=== PATIENT | female | born 1935 | race Caucasian/White ===

== ENCOUNTER 2018-02-12 13:32 | Emergency (ER) | payer MEDICARE, BC ==
[2018-02-12 13:41] VITALS: RESP 18; TEMP 98
[2018-02-12] MEDS ORDERED: ENALAPRILAT 1.25 MG/ML 1 ML VIAL IVP STA ×2 (14:29→15:45)
--- NOTE | 2018-02-12 14:33 | ED ---
General Adult HPI - General Chief complaint: Recheck/Abnormal Lab/Rx Stated complaint: High BP Time Seen by Provider: 02/12/18 14:18 Source: patient, family, RN notes reviewed Mode of arrival: ambulatory Limitations: no limitations - History of Present Illness Initial comments: Patient is a pleasant 82-year-old female presenting to the emergency department with concerns regarding hypertension. Patient did take her blood pressure medicine this morning. Patient does have some increased stress recently related to her 's illness. Patient went to urgent care secondary to lesion on the right arm. Patient was noticed to have high blood pressure of approximately 212 systolic. Patient was advised to come to the emergency department. Patient does admit to feeling slightly lightheaded otherwise has no complaints. No chest pain. No dyspnea. No confusion. No weakness. No headaches. - Related Data Home Medications Medication Instructions Recorded Confirmed Meloxicam [Mobic] 7.5 mg PO DAILY PRN 12/28/13 02/12/18 Omeprazole [PriLOSEC] 20 mg PO BID 12/28/13 02/12/18 Calcium Carbonate/Vitamin D3 1 tab PO DAILY 10/04/14 02/12/18 [Calcium 600 + Vit D Tablet] Multivitamins, Thera [Theragran] 1 tab PO DAILY 04/12/15 02/12/18 Atorvastatin [Lipitor] 20 mg PO HS 02/12/18 02/12/18 Lisinopril [Zestril] 20 mg PO DAILY 02/12/18 02/12/18 Metoprolol Tartrate [Lopressor] 50 mg PO BID 02/12/18 02/12/18 Previous Rx's Medication Instructions Recorded Cephalexin [Keflex] 500 mg PO TID #21 cap 02/12/18 Allergies Allergy/AdvReac Type Severity Reaction Status Date / Time No Known Allergies Allergy Verified 02/12/18 14:39 Review of Systems ROS Statement: Those systems with pertinent positive or pertinent negative responses have been documented in the HPI. ROS Other: All systems not noted in ROS Statement are negative. Constitutional: Denies: fever Eyes: Denies: eye pain ENT: Denies: ear pain Respiratory: Denies: cough Cardiovascular: Denies: chest pain Endocrine: Denies: fatigue Gastrointestinal: Denies: abdominal pain Genitourinary: Denies: dysuria Musculoskeletal: Denies: back pain Skin: Reports: lesions Neurological: Denies: weakness Past Medical History Past Medical History: Cancer, Hearing Disorder / Deafness, Hyperlipidemia, Hypertension Additional Past Medical History / Comment(s): HEART MURMUR,LOWER BACK PAIN HX BREAST CA. History of Any Multi-Drug Resistant Organisms: None Reported Past Surgical History: Back Surgery, Hysterectomy, Tubal Ligation Additional Past Surgical History / Comment(s): LT LUMPECTOMY. PAIN PROC. EXC EBONY CATARACTS. Past Anesthesia/Blood Transfusion Reactions: No Reported Reaction Past Psychological History: No Psychological Hx Reported Smoking Status: Never smoker Past Alcohol Use History: None Reported Past Drug Use History: None Reported - Past Family History Mother Family Medical History: No Reported History General Exam Limitations: no limitations General appearance: alert, in no apparent distress Head exam: Present: atraumatic Eye exam: Present: normal appearance Neck exam: Present: normal inspection Respiratory exam: Present: normal lung sounds bilaterally Cardiovascular Exam: Present: regular rate, normal rhythm GI/Abdominal exam: Present: soft. Absent: tenderness Extremities exam: Present: normal inspection Neurological exam: Present: alert, oriented X3, CN II-XII intact. Absent: motor sensory deficit Psychiatric exam: Present: normal affect, normal mood Skin exam: Present: other (Right mid upper arm laterally with vesicle, less than 1 cm.) Course Vital Signs 02/12/18 02/12/18 02/12/18 13:37 15:51 16:26 Temperature 98.0 F Pulse Rate 63 Respiratory 18 Rate Blood Pressure 203/76 226/87 173/76 O2 Sat by Pulse 98 Oximetry EKG Findings - EKG Comments: EKG Findings:: Sinus bradycardia 57. IA 164. QRS 84. QT 438. QTC 426. Normal axis. Normal QRS. No acute ST change. Medical Decision Making - Medical Decision Making Patient reevaluated and resting comfortably in bed. Patient updated on results and need for follow-up. Blood pressure 165/62. - Lab Data Result diagrams: 02/12/18 14:50 02/12/18 14:50 Lab Results 02/12/18 02/12/18 02/12/18 Range/Units 14:50 14:50 15:40 WBC 6.7 (3.8-10.6) k/uL RBC 4.21 (3.80-5.40) m/uL Hgb 14.2 (11.4-16.0) gm/dL Hct 42.2 (34.0-46.0) % MCV 100.2 H (80.0-100.0) fL MCH 33.6 (25.0-35.0) pg MCHC 33.6 (31.0-37.0) g/dL RDW 12.3 (11.5-15.5) % Plt Count 134 L (150-450) k/uL Neutrophils % 50 % Lymphocytes % 37 % Monocytes % 6 % Eosinophils % 4 % Basophils % 1 % Neutrophils # 3.3 (1.3-7.7) k/uL Lymphocytes # 2.5 (1.0-4.8) k/uL Monocytes # 0.4 (0-1.0) k/uL Eosinophils # 0.3 (0-0.7) k/uL Basophils # 0.1 (0-0.2) k/uL Sodium 140 (137-145) mmol/L Potassium 4.6 (3.5-5.1) mmol/L Chloride 104 (98-107) mmol/L Carbon Dioxide 27 (22-30) mmol/L Anion Gap 9 mmol/L BUN 16 (7-17) mg/dL Creatinine 0.61 (0.52-1.04) mg/dL Est GFR (CKD-EPI)AfAm >90 (>60 ml/min/1.73 sqM) Est GFR (CKD-EPI)NonAf 84 (>60 ml/min/1.73 sqM) Glucose 92 (74-99) mg/dL Calcium 9.9 (8.4-10.2) mg/dL Total Bilirubin 0.6 (0.2-1.3) mg/dL AST 34 (14-36) U/L ALT 36 (9-52) U/L Alkaline Phosphatase 82 (38-126) U/L Total Protein 6.4 (6.3-8.2) g/dL Albumin 4.1 (3.5-5.0) g/dL Urine Color Light Yellow Urine Appearance Clear (Clear) Urine pH 6.0 (5.0-8.0) Ur Specific [place] 1.005 (1.001-1.035) Urine Protein Negative (Negative) Urine Glucose (UA) Negative (Negative) Urine Ketones Negative (Negative) Urine Blood Negative (Negative) Urine Nitrite Negative (Negative) Urine Bilirubin Negative (Negative) Urine Urobilinogen <2.0 (<2.0) mg/dL Ur Leukocyte Esterase Moderate H (Negative) Urine RBC <1 (0-5) /hpf Urine WBC 5 (0-5) /hpf Ur Squamous Epith Cells <1 (0-4) /hpf Urine Bacteria Rare H (None) /hpf - Radiology Data Radiology results: image reviewed (Chest x-ray does show some chronic changes without acute process.) Disposition Clinical Impression: Hypertension Disposition: HOME SELF-CARE Condition: Stable Instructions: Hypertension (ED) Additional Instructions: Please follow-up with primary care physician in the next couple days for recheck. Keep a diary of your blood pressures to provide for primary care physician. You may take 1 additional lisinopril daily if blood pressure greater than 185 systolic or 90 diastolic. Return for increase arm sore size, redness, pain, fevers, uncontrolled blood pressure, worsening symptoms or other concerns. Prescriptions: Cephalexin [Keflex] 500 mg PO TID #21 cap Is patient prescribed a controlled substance at d/c from ED?: No Referrals: Nuno Maynard MD [Primary Care Provider] - 1-2 days Time of Disposition: 16:47
[2018-02-12 14:57] LABS: Basophils # (A) 0.1 k/uL (0-0.2); Basophils % (A) 1 %; Eosinophils # (A) 0.3 k/uL (0-0.7); Eosinophils % (A) 4 %; HCT 42.2 % (34.0-46.0); HGB 14.2 gm/dL (11.4-16.0); Lymphocytes # (A) 2.5 k/uL (1.0-4.8); Lymphocytes % (A) 37 %; MCH 33.6 pg (25.0-35.0); MCHC 33.6 g/dL (31.0-37.0); MCV 100.2 fL (80.0-100.0); Mean Platelet Volume 7.5; Monocytes # (A) 0.4 k/uL (0-1.0); Monocytes % (A) 6 %; Neutrophils # (A) 3.3 k/uL (1.3-7.7); Neutrophils % (A) 50 %; Platelet Count 134 k/uL (150-450); RBC 4.21 m/uL (3.80-5.40); RDW 12.3 % (11.5-15.5); WBC 6.7 k/uL (3.8-10.6)
[2018-02-12 15:08] LABS: ALT 36 U/L (9-52); AST 34 U/L (14-36); Albumin 4.1 g/dL (3.5-5.0); Alkaline Phosphatase 82 U/L (38-126); Anion Gap 9 mmol/L; Blood Urea Nitrogen 16 mg/dL (7-17); Calcium 9.9 mg/dL (8.4-10.2); Carbon Dioxide 27 mmol/L (22-30); Chloride 104 mmol/L (98-107); Glucose 92 mg/dL (74-99); Potassium 4.6 mmol/L (3.5-5.1); Sodium 140 mmol/L (137-145); Total Bilirubin 0.6 mg/dL (0.2-1.3); Total Protein 6.4 g/dL (6.3-8.2)
--- NOTE | 2018-02-12 15:42 | XR ---
EXAMINATION TYPE: XR chest 2V DATE OF EXAM: 02/12/2018 COMPARISON: Chest x-ray November 29, 2009 HISTORY: History of breast cancer TECHNIQUE: Frontal and lateral views of the chest are obtained. FINDINGS: There is chronic parenchymal change without suspicious focal air space opacity, pleural ef fusion, or pneumothorax seen. The cardiac silhouette size is within normal limits. The osseous str uctures are demineralized. Metallic anchor right humeral head level is redemonstrated. Cholecystectom y clips are noted. Absent left breast shadow is redemonstrated. IMPRESSION: Chronic changes without acute pulmonary process.
[2018-02-12 16:03] LABS: Appearance,Urine Clear (Clear); Bacteria,Urine Rare /hpf; Bilirubin,Urine Negative (Negative); Blood,Urine Negative (Negative); Color,Urine Light Yellow; Glucose,Urine (UA) Negative (Negative); Ketones,Urine Negative (Negative); Leukocyte Esterase,Urine Moderate (Negative); Nitrite,Urine Negative (Negative); Protein,Urine Negative (Negative); RBC,Urine <1 /hpf (0-5); Specific Gravity,Urine 1.005 (1.001-1.035); Squamous Epithelial Cell,Urine <1 /hpf (0-4); Urobilinogen,Urine <2.0 mg/dL (<2.0); WBC,Urine 5 /hpf (0-5)
[2018-02-12 17:19] VITALS: BP 183/75; PULSE 60
== END 2018-02-12 17:41 | disposition home or self-care (01) ==
LOC: EC 13:32
DX: I10 Essential (primary) hypertension (principal); R23.8 Other skin changes; R42 Dizziness and giddiness; Z63.8 Other specified problems related to primary support group; E78.5 Hyperlipidemia, unspecified; H91.90 Unspecified hearing loss, unspecified ear; Z79.899 Other long term (current) drug therapy; Z85.3 Personal history of malignant neoplasm of breast; Z98.890 Other specified postprocedural states
CPT/HCPCS: 36415; 71046; 80053; 81001; 85025; 93005; 96374; 96376; 99283

== ENCOUNTER 2019-03-14 16:16 | Emergency (ER) | payer MEDICARE, BC ==
[2019-03-14 16:28] VITALS: TEMP 98.2
[2019-03-14] MEDS ORDERED: LIDOCAINE 5% PATCH TOPICAL STA (16:52)
--- NOTE | 2019-03-14 16:58 | ED ---
Back Pain [facility] - General Chief Complaint: Back Pain/Injury Stated Complaint: Back pain Time Seen by Provider: 03/14/19 16:35 Source: patient Limitations: no limitations - History of Present Illness Initial Comments: 83-year-old female presenting with left-sided paraspinal thoracic back pain that began while doing laundry. He denies a specific inciting event, but states that she is being seen in the ER previously for this was given a shot, and had resolution. She denies any direct injury to the back, history of injections, radicular symptoms, saddle anesthesia, bowel or bladder dysfunction, urinary frequency or dysuria, chest pain shortness of breath, abdominal pain, nause a/vomiting/diarrhea. She took half of a 60 mg Tramadol without relief. Patient was hypertensive on arrival, which her and her state is common when she is seen in a hospital or doctor's office. - Related Data Home Medications Medication Instructions Recorded Confirmed Meloxicam [Mobic] 7.5 mg PO DAILY 12/28/13 03/14/19 Omeprazole [PriLOSEC] 20 mg PO DAILY 12/28/13 03/14/19 Calcium Carbonate/Vitamin D3 1 tab PO DAILY 10/04/14 03/14/19 [Calcium 600 + Vit D Tablet] Atorvastatin [Lipitor] 40 mg PO HS 03/14/19 03/14/19 Cholecalciferol (Vitamin D3) 2,000 unit PO DAILY 03/14/19 03/14/19 [Vitamin D3] Cyclobenzaprine [Flexeril] 10 mg PO DAILY PRN 03/14/19 03/14/19 Letrozole 2.5 mg PO DAILY 03/14/19 03/14/19 Losartan/Hydrochlorothiazide 1 tab PO DAILY 03/14/19 03/14/19 [Losartan-Hctz 50-12.5 mg Tab] Metoprolol Tartrate [Lopressor] 25 mg PO BID 03/14/19 03/14/19 Multivit-Min/FA/Lycopen/Lutein 1 tab PO DAILY 03/14/19 03/14/19 [Centrum Silver Tablet] traZODone HCL 50 mg PO HS 03/14/19 03/14/19 Previous Rx's Medication Instructions Recorded Lidocaine [Lidoderm 5% Patch] 1 patch TRANSDERM DAILY PRN #30 03/14/19 patch Allergies Allergy/AdvReac Type Severity Reaction Status Date / Time No Known Allergies Allergy Verified 03/14/19 17:04 Review of Systems ROS Statement: Those systems with pertinent positive or pertinent negative responses have been documented in the HPI. Review of Systems Constitutional: Denies fever, chills Eyes: Denies change in vision, Denies pain Ears, nose, mouth, throat: Denies headaches, Denies sore throat Cardiovascular: Denies chest pain. Denies palpitations Respiratory: Denies shortness of breath, Denies cough Gastrointestinal: Denies abdominal pain. Denies nausea, vomiting, diarrhea. Genitourinary: Denies hematuria, Denies infections Musculoskeletal: Positive back pain, Denies swelling Integumentary: Denies rash Neurological: Denies headache, focal weakness, focal numbness Psychiatric: Denies anxiety, Denies depression Hematologic/Lymphatic: Denies easy bleeding or bruising ROS Other: All systems not noted in ROS Statement are negative. Past Medical History Past Medical History: Cancer, Hearing Disorder / Deafness, Hyperlipidemia, Hypertension Additional Past Medical History / Comment(s): HEART MURMUR,LOWER BACK PAIN HX BREAST CA. History of Any Multi-Drug Resistant Organisms: None Reported Past Surgical History: Back Surgery, Hysterectomy, Tubal Ligation Additional Past Surgical History / Comment(s): LT LUMPECTOMY. PAIN PROC. EXC EBONY CATARACTS. Past Anesthesia/Blood Transfusion Reactions: No Reported Reaction Past Psychological History: No Psychological Hx Reported Smoking Status: Never smoker Past Alcohol Use History: None Reported Past Drug Use History: None Reported - Past Family History Mother Family Medical History: No Reported History General Exam - General Exam Comments Initial Comments: General: Awake, alert, No acute Distress HENT: Normocephalic. Atraumatic Eyes: PERRL. EOMI. No scleral icterus. No injected conjunctiva Neck: Full ROM Chest/Lungs: Clear to auscultation bilaterally. No wheezing, rhonchi, or rales Cardiac: Regular rate, rhythm. Systolic murmur. 2+ radial pulses. No abdominal bruit. 2+ DP pulses. Abdomen/GI: Soft, nontender, nondistended. No rebound, guarding, or rigidity. Musculoskeletal: Full ROM. Left sided hypertonicity and tenderness to palpation at the thoracolumbar junction. No midline cervical, thoracic, lumbar tenderness. Skin: Warm, dry, intact Neurologic: A/Ox3, no weakness, no sensory deficit, no abnormal gait, no coordination deficit. 2+ patellar reflexes. L4 through S1 sensation intact bilaterally. Limitations: no limitations Course Vital Signs 03/14/19 03/14/19 03/14/19 16:25 17:50 18:16 Temperature 98.2 F Pulse Rate 66 65 67 Respiratory 18 13 13 Rate Blood Pressure 203/84 171/80 171/80 O2 Sat by Pulse 97 98 98 Oximetry Medical Decision Making - Medical Decision Making 83-year-old female presenting with her spell back pain. Initial exam the patient is awake, alert, no acute distress. VSS. Patient has no cauda equina signs on exam. A cardiac workup was done secondary to her hypertension. Her laboratory workup is negative for acute process, and in her pain improved on the department. A repeat blood pressure was 170/80. Symptoms are unlikely secondary to an aortic dissection as she has equal pulses, no neuro deficit, improvement of her blood pressure, and no anginal equivalents, no abdominal pain, and her back pain has improved. No further emergent workup indicated. The patient was given return to ED instructions. They were instructed to follow up with their primary care provider. Stable for discharge at this time. - Lab Data Result diagrams: 03/14/19 17:04 03/14/19 17:04 Lab Results 03/14/19 03/14/19 03/14/19 Range/Units 17:04 17:04 17:04 WBC 9.2 (3.8-10.6) k/uL RBC 4.02 (3.80-5.40) m/uL Hgb 13.7 (11.4-16.0) gm/dL Hct 40.2 (34.0-46.0) % MCV 100.0 (80.0-100.0) fL MCH 34.2 (25.0-35.0) pg MCHC 34.2 (31.0-37.0) g/dL RDW 12.7 (11.5-15.5) % Plt Count 165 (150-450) k/uL Neutrophils % 66 % Lymphocytes % 21 % Monocytes % 8 % Eosinophils % 3 % Basophils % 0 % Neutrophils # 6.0 (1.3-7.7) k/uL Lymphocytes # 1.9 (1.0-4.8) k/uL Monocytes # 0.7 (0-1.0) k/uL Eosinophils # 0.3 (0-0.7) k/uL Basophils # 0.0 (0-0.2) k/uL Sodium 138 (137-145) mmol/L Potassium 4.0 (3.5-5.1) mmol/L Chloride 102 (98-107) mmol/L Carbon Dioxide 25 (22-30) mmol/L Anion Gap 11 mmol/L BUN 19 H (7-17) mg/dL Creatinine 0.66 (0.52-1.04) mg/dL Est GFR (CKD-EPI)AfAm >90 (>60 ml/min/1.73 sqM) Est GFR (CKD-EPI)NonAf 81 (>60 ml/min/1.73 sqM) Glucose 136 H (74-99) mg/dL Calcium 9.4 (8.4-10.2) mg/dL Troponin I <0.012 (0.000-0.034) ng/mL Urine Color Urine Appearance (Clear) Urine pH (5.0-8.0) Ur Specific [place] (1.001-1.035) Urine Protein (Negative) Urine Glucose (UA) (Negative) Urine Ketones (Negative) Urine Blood (Negative) Urine Nitrite (Negative) Urine Bilirubin (Negative) Urine Urobilinogen (<2.0) mg/dL Ur Leukocyte Esterase (Negative) Urine RBC (0-5) /hpf Urine WBC (0-5) /hpf Ur Squamous Epith Cells (0-4) /hpf Urine Mucus (None) /hpf 03/14/19 Range/Units 17:04 WBC (3.8-10.6) k/uL RBC (3.80-5.40) m/uL Hgb (11.4-16.0) gm/dL Hct (34.0-46.0) % MCV (80.0-100.0) fL MCH (25.0-35.0) pg MCHC (31.0-37.0) g/dL RDW (11.5-15.5) % Plt Count (150-450) k/uL Neutrophils % % Lymphocytes % % Monocytes % % Eosinophils % % Basophils % % Neutrophils # (1.3-7.7) k/uL Lymphocytes # (1.0-4.8) k/uL Monocytes # (0-1.0) k/uL Eosinophils # (0-0.7) k/uL Basophils # (0-0.2) k/uL Sodium (137-145) mmol/L Potassium (3.5-5.1) mmol/L Chloride (98-107) mmol/L Carbon Dioxide (22-30) mmol/L Anion Gap mmol/L BUN (7-17) mg/dL Creatinine (0.52-1.04) mg/dL Est GFR (CKD-EPI)AfAm (>60 ml/min/1.73 sqM) Est GFR (CKD-EPI)NonAf (>60 ml/min/1.73 sqM) Glucose (74-99) mg/dL Calcium (8.4-10.2) mg/dL Troponin I (0.000-0.034) ng/mL Urine Color Yellow Urine Appearance Clear (Clear) Urine pH 5.0 (5.0-8.0) Ur Specific [place] 1.016 (1.001-1.035) Urine Protein Negative (Negative) Urine Glucose (UA) Negative (Negative) Urine Ketones Negative (Negative) Urine Blood Negative (Negative) Urine Nitrite Negative (Negative) Urine Bilirubin Negative (Negative) Urine Urobilinogen <2.0 (<2.0) mg/dL Ur Leukocyte Esterase Moderate H (Negative) Urine RBC 1 (0-5) /hpf Urine WBC 3 (0-5) /hpf Ur Squamous Epith Cells 1 (0-4) /hpf Urine Mucus Rare H (None) /hpf - EKG Data EKG Comments: EKG shows normal sinus rhythm at a rate of 63 bpm. AK interval 160 ms, QRS duration 84 ms, QT/QTc 438/[address] segment elevation, depression. No prolonged QT/QTc or AK interval. No dysrythmia noted. Disposition Clinical Impression: Mechanical back pain, Hypertension Disposition: HOME SELF-CARE Condition: Good Instructions (If sedation given, give patient instructions): Acute Low Back Pain (ED) Prescriptions: Lidocaine [Lidoderm 5% Patch] 1 patch TRANSDERM DAILY PRN #30 patch PRN Reason: Pain Is patient prescribed a controlled substance at d/c from ED?: No Referrals: Nuno Maynard MD [Primary Care Provider] - 1-2 days
[2019-03-14 17:21] LABS: Basophils % (A) 0 %; Eosinophils # (A) 0.3 k/uL (0-0.7); Eosinophils % (A) 3 %; HCT 40.2 % (34.0-46.0); HGB 13.7 gm/dL (11.4-16.0); Lymphocytes # (A) 1.9 k/uL (1.0-4.8); Lymphocytes % (A) 21 %; MCH 34.2 pg (25.0-35.0); MCHC 34.2 g/dL (31.0-37.0); Monocytes # (A) 0.7 k/uL (0-1.0); Monocytes % (A) 8 %; Neutrophils % (A) 66 %; Platelet Count 165 k/uL (150-450); RBC 4.02 m/uL (3.80-5.40); RDW 12.7 % (11.5-15.5); WBC 9.2 k/uL (3.8-10.6)
[2019-03-14 17:24] LABS: Appearance,Urine Clear (Clear); Bilirubin,Urine Negative (Negative); Blood,Urine Negative (Negative); Color,Urine Yellow; Glucose,Urine (UA) Negative (Negative); Ketones,Urine Negative (Negative); Leukocyte Esterase,Urine Moderate (Negative); Mucus,Urine Rare /hpf; Nitrite,Urine Negative (Negative); Protein,Urine Negative (Negative); RBC,Urine 1 /hpf (0-5); Specific Gravity,Urine 1.016 (1.001-1.035); Squamous Epithelial Cell,Urine 1 /hpf (0-4); Urobilinogen,Urine <2.0 mg/dL (<2.0); WBC,Urine 3 /hpf (0-5)
[2019-03-14 17:29] LABS: African American GFR (CKD) >90 (>60 ml/min/1.73 sqM); Anion Gap 11 mmol/L; Blood Urea Nitrogen 19 mg/dL (7-17); Calcium 9.4 mg/dL (8.4-10.2); Carbon Dioxide 25 mmol/L (22-30); Chloride 102 mmol/L (98-107); Glucose 136 mg/dL (74-99); Non-African American GFR(CKD) 81 (>60 ml/min/1.73 sqM); Sodium 138 mmol/L (137-145)
--- NOTE | 2019-03-14 17:36 | XR ---
EXAMINATION TYPE: XR thoraco lumbar junction DATE OF EXAM: 03/14/2019 COMPARISON: NONE HISTORY: Back pain TECHNIQUE: 2 views FINDINGS: Vertebra have fairly normal alignment. There is degenerative disc space narrowing in the up per lumbar spine. There is no compression fracture. Abdominal aorta is atheromatous. IMPRESSION: Spondylotic changes. No definite fracture seen. T10 and T9 vertebra are not well seen.
--- NOTE | 2019-03-14 17:37 | XR ---
EXAMINATION TYPE: XR chest 2V DATE OF EXAM: 03/14/2019 COMPARISON: 02/12/2018 HISTORY: Back pain TECHNIQUE: Frontal and lateral views of the chest are obtained. FINDINGS: Heart and mediastinum are normal. Lungs are clear of infiltrate. There is no pleural effus ion or pneumothorax. Thoracic spine is intact. There is no compression fracture. There is obtained in the right humerus. IMPRESSION: No active cardiopulmonary disease. No change.
[2019-03-14 17:50] VITALS: BP 171/80; RESP 13
[2019-03-14 18:17] VITALS: PULSE 67
== END 2019-03-14 18:10 | disposition home or self-care (01) ==
LOC: EC 16:16
DX: M54.6 Pain in thoracic spine (principal); I10 Essential (primary) hypertension; E78.5 Hyperlipidemia, unspecified; R01.1 Cardiac murmur, unspecified; H91.90 Unspecified hearing loss, unspecified ear; Z79.1 Long term (current) use of non-steroidal anti-inflammatories (NSAID); Z79.899 Other long term (current) drug therapy; Z85.3 Personal history of malignant neoplasm of breast
CPT/HCPCS: 36415; 71046; 72080; 80048; 81001; 84484; 85025; 93005; 99284

== ENCOUNTER → 2020-08-08 | Outpatient (CLI) | payer MEDICARE, BC ==
--- NOTE | 2020-08-08 10:57 | XR ---
EXAMINATION TYPE: XR shoulder complete LT DATE OF EXAM: 08/08/2020 COMPARISON: NONE HISTORY: Pain TECHNIQUE: Shoulder examined in 3 FINDINGS: The humeral head articulates with the glenoid. There is loss of the glenohumeral Junction joint space with some humeral head spurring compatible with moderate to advanced osteoarthritic degenerative lolis nge. The acromio-clavicular junction is normal. No acute fractures or dislocations are evident. A follow up study can be performed 7-10 days from acute trauma for continued pain. IMPRESSION: 1. 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
== END | disposition home or self-care (01) ==
LOC: RADXRMAIN 10:27
PROVIDERS: ATTEND Internal Medicine Hematology & Oncology
DX: M19.012 Primary osteoarthritis, left shoulder (principal); M75.102 Unspecified rotator cuff tear or rupture of left shoulder, not specified as traumatic

== ENCOUNTER → 2020-08-22 | Outpatient (CLI) | payer MEDICARE, BC ==
--- NOTE | 2020-08-22 16:13 | BD ---
EXAMINATION TYPE: Axial Bone Density DATE OF EXAM: 08/22/2020 COMPARISON: 01/18/2008 CLINICAL HISTORY: M [age], postmenopausal female and breast cancer Height: 61.5 IN Weight: 138 LBS RISK FACTORS HISTORY OF: Surgery to Spine: HAD SURGERY AT L5 TO THE NERVES. NO SURGERY TO BONES. When: Active: YES Postmenopausal woman: TOTAL HYST AGE 46 Take estrogen and/or progesterone medications: NOT NOW How long: TOOK FOR 5 YEARS MEDICATIONS: Additional Medications: CALCIUM, VIT D, BLOOD PRESSURE MEDS, CHOLESTEROL MEDS Additional History: BREAST CANCER WITH RADIATION EXAM MEASUREMENTS: Bone mineral densitometry was performed using the [employer]. Bone mineral density as measured about the Lumbar spine is: ----- L1-L4(G/cm2): 1.447 T Score Values are as follows: ----- L2: 1.7 ----- L3: 3.0 ----- L4: 2.4 ----- L1-L4: 2.2 Bone mineral density BASELINE Bone mineral density about the R hip (g/cm2): 0.943 Bone mineral density about the L hip (g/cm2): 0.948 T Score values are as follows: -----R Neck: -0.7 -----L Neck: -0.7 -----R Total: -0.3 -----L Total: -0.4 Bone mineral density has: Decreased -9.6% since study of: 01/18/2008 IMPRESSION: Normal (Values between +1 and -1 indicate normal bone mass). Consider repeating this study in 5 year s or sooner if there is some new clinical indication. NOTE: T-SCORE=SD OF THE YOUNG ADULT MEAN.
--- NOTE | 2020-09-01 14:37 | MM ---
Reason for exam: screening (asymptomatic). Last mammogram was performed 1 year and 5 months ago. History: Patient is postmenopausal, has history of breast cancer at age 61, and previous chest radiation therapy. Family history of breast cancer in 2 paternal aunts. Mastectomy of the left breast, October 2018. Lumpectomy of the left breast, 1996. Radiation therapy. Took estrogen beginning at age 46. Physical Findings: A clinical breast exam by your physician is recommended on an annual basis and results should be correlated with mammographic findings. MG 3D Scr Walter Unilateral W/Cad Bilateral CC and MLO view(s) were taken. XCCL view(s) were taken of the right breast. Prior study comparison: June 09, 2018, mammogram, performed at [place]. December 20, 2016, mammogram, performed at [place]. January 23, 2016, mammogram, performed at [place]. January 20, 2015, mammogram, performed at [place]. January 19, 2014, bilateral MG diagnostic mammo w CAD EBONY. January 14, 2013, CAD bilateral diagnostic mammogram. The breast tissue is heterogeneously dense. This may lower the sensitivity of mammography. Finding: There are typically benign round, linear calcifications in the right breast. Previous mammotome biopsy in the right breast x 2. There is a chronic nodularity in the right breast. There is no discrete abnormality. ASSESSMENT: Benign, BI-RAD 2 RECOMMENDATION: Routine screening mammogram of the right breast in 1 year.
== END | disposition home or self-care (01) ==
LOC: RADMAMWWP 09:28
PROVIDERS: ATTEND Internal Medicine Hematology & Oncology
DX: Z12.31 Encounter for screening mammogram for malignant neoplasm of breast (principal); Z79.890 Hormone replacement therapy
CPT/HCPCS: 77067; 77080

== ENCOUNTER 2021-02-12 07:24 | Emergency (ER) | payer MEDICARE, BC ==
[2021-02-12 07:29] VITALS: TEMP 98
[2021-02-12 08:39] LABS: Basophils % (A) 1 %; Eosinophils # (A) 0.1 k/uL (0-0.7); Eosinophils % (A) 2 %; HCT 35.9 % (34.0-46.0); HGB 12.5 gm/dL (11.4-16.0); Lymphocytes # (A) 1.5 k/uL (1.0-4.8); Lymphocytes % (A) 23 %; MCH 34.1 pg (25.0-35.0); MCHC 34.8 g/dL (31.0-37.0); Mean Platelet Volume 7.2; Monocytes # (A) 0.6 k/uL (0-1.0); Monocytes % (A) 8 %; Neutrophils # (A) 4.2 k/uL (1.3-7.7); Neutrophils % (A) 62 %; Platelet Count 173 k/uL (150-450); RBC 3.66 m/uL (3.80-5.40); RDW 12.7 % (11.5-15.5); WBC 6.7 k/uL (3.8-10.6)
[2021-02-12 08:48] LABS: Albumin 4.1 g/dL (3.5-5.0); Calcium 9.5 mg/dL (8.4-10.2); Potassium 3.8 mmol/L (3.5-5.1); Total Bilirubin 0.8 mg/dL (0.2-1.3); Total Protein 6.7 g/dL (6.3-8.2)
[2021-02-12 08:51] LABS: Prothrombin Time 10.6 sec (9.0-12.0)
[2021-02-12 09:07] LABS: Appearance,Urine Clear (Clear); Bilirubin,Urine Negative (Negative); Blood,Urine Negative (Negative); Color,Urine Light Yellow; Glucose,Urine (UA) Negative (Negative); Ketones,Urine Negative (Negative); Leukocyte Esterase,Urine Trace (Negative); Nitrite,Urine Negative (Negative); Protein,Urine Negative (Negative); RBC,Urine <1 /hpf (0-5); Specific Gravity,Urine 1.006 (1.001-1.035); Squamous Epithelial Cell,Urine 1 /hpf (0-4); Urobilinogen,Urine <2.0 mg/dL (<2.0); WBC,Urine 1 /hpf (0-5)
[2021-02-12] MEDS ORDERED: SODIUM CHLORIDE 0.9% 1,000 ML IV ONE (09:42)
--- NOTE | 2021-02-12 09:54 | CT ---
EXAMINATION TYPE: CT abdomen pelvis w con DATE OF EXAM: 02/12/2021 COMPARISON: 01/07/2012 HISTORY: Lower abdominal pain with constipation. CT DLP: 814.4 mGycm CONTRAST: CT scan of the abdomen and pelvis is performed without Oral Contrast and with IV Contrast, patient in jected with 100 mL of Isovue 300. FINDINGS: LUNG BASES-: No visible nodule. No infiltrate. LIVER/GB: The gallbladder is surgically absent. No space occupying hepatic lesion. Biliary tree is of normal caliber. PANCREAS: No inflammation. No distinct mass. SPLEEN: No splenic enlargement. No lesion seen. ADRENALS: Bilateral adrenal nodularity may reflect underlying adenoma. KIDNEYS/BLADDER: There is mild right-sided hydronephrosis without obstructing calculus. Correlate for recently passed calculus. No nephrolithiasis. No distinct renal mass. Urinary bladder grossly unre markable. BOWEL: Normal appendix. Normal bowel caliber. No inflammation. GENITAL ORGANS: No gross abnormality. LYMPH NODES: No greater than 1cm abdominal or pelvic lymph nodes are appreciated. AORTA: No significant abnormality. OSSEOUS STRUCTURES: No significant abnormality is seen. OTHER: No significant additional abnormality is seen. IMPRESSION: 1. There is mild right-sided hydronephrosis without obstructing calculus. Correlate for recently pass ed calculus.
[2021-02-12 10:37] VITALS: BP 170/70; PULSE 61; RESP 18
--- NOTE | 2021-02-12 10:48 | ED ---
Abdominal Pain HPI - General Chief Complaint: Abdominal Pain Stated Complaint: Abd Pain Source: patient Mode of arrival: ambulatory Limitations: physical limitation - History of Present Illness Initial Comments: 85-year-old female with past medical history of hypertension, hyperlipidemia, breast cancer who presents emergency room with reported lower abdominal pain. Patient reports that her pain started last . She has had bilateral lower quadrant abdominal pain which was associated with distention. She did start taking stool softeners since her primary care doctor on Friday. They did place her on MiraLAX. Patient has had several bowel movements over the weekend. Denies black or bloody stools. She admits that her pain has improved however she continues to have mild discomfort. Denies any back or flank pain. No ripping or tearing station to her back. Denies any urinary changes to include dysuria, hematuria or to the voiding. She continues to pass gas. No history of bowel obstruction. Patient is status post hysterectomy and cholecystectomy. Due to the continued discomfort the patient presented emergency room for further evaluation. Denies any fevers or chills. No other alleviating, precipitating or modifying factors - Related Data Home Medications Medication Instructions Recorded Confirmed Meloxicam [Mobic] 7.5 mg PO DAILY 12/28/13 02/12/21 Omeprazole [PriLOSEC] 20 mg PO DAILY 12/28/13 02/12/21 Calcium Carbonate/Vitamin D3 1 tab PO DAILY 10/04/14 02/12/21 [Calcium 600 + Vit D Tablet] Atorvastatin [Lipitor] 40 mg PO HS 03/14/19 02/12/21 Cyclobenzaprine [Flexeril] 10 mg PO HS PRN 03/14/19 02/12/21 Letrozole 2.5 mg PO DAILY 03/14/19 02/12/21 Losartan/Hydrochlorothiazide 1 tab PO DAILY 03/14/19 02/12/21 [Losartan-Hctz 50-12.5 mg Tab] Multivit-Min/FA/Lycopen/Lutein 1 tab PO DAILY 03/14/19 02/12/21 [Centrum Silver Tablet] traZODone HCL 50 mg PO HS 03/14/19 02/12/21 Metoprolol Tartrate [Lopressor] 50 mg PO BID 02/12/21 02/12/21 Allergies Allergy/AdvReac Type Severity Reaction Status Date / Time No Known Allergies Allergy Verified 07/12/21 07:49 Review of Systems ROS Statement: Those systems with pertinent positive or pertinent negative responses have been documented in the HPI. ROS Other: All systems not noted in ROS Statement are negative. Past Medical History Past Medical History: Cancer, Hearing Disorder / Deafness, Hyperlipidemia, Hypertension Additional Past Medical History / Comment(s): HEART MURMUR,LOWER BACK PAIN HX BREAST CA. History of Any Multi-Drug Resistant Organisms: None Reported Past Surgical History: Back Surgery, Hysterectomy, Tubal Ligation Additional Past Surgical History / Comment(s): LT LUMPECTOMY. PAIN PROC. EXC EBONY CATARACTS. , left breast mastectomy Past Anesthesia/Blood Transfusion Reactions: No Reported Reaction Past Psychological History: No Psychological Hx Reported Smoking Status: Never smoker Past Alcohol Use History: None Reported Past Drug Use History: None Reported - Past Family History Mother Family Medical History: No Reported History General Exam Limitations: physical limitation Course Vital Signs 02/12/21 02/12/21 02/12/21 07:25 08:30 10:35 Temperature 98.0 F Pulse Rate 65 79 61 Respiratory 18 16 18 Rate Blood Pressure 164/72 163/93 170/70 O2 Sat by Pulse 98 99 97 Oximetry Medical Decision Making - Medical Decision Making Upon arrival the patient is placed into room 4. There are history of physical exam was performed. IV is established. Laboratory studies were conducted. Patient was offered something for pain control however she refused. Laboratory studies chemistry the sodium of 128. She is given a liter bolus of normal saline. Remainder of laboratory studies are normal. CT the patient's abdomen and pelvis demonstrates some hydronephrosis to the right kidney however no acute findings. Results are discussed the patient's. I did discuss diagnosis, differential treatment options. Patient will continue with MiraLAX and follow up with her primary care doctor in the next 2-4 days. Return to the emergency room for any new or worsening symptoms. Patient understood this. Given written and verbal discharge instructions and discharged home in stable condition - Lab Data Result diagrams: 02/12/21 08:23 02/12/21 08:23 Lab Results 02/12/21 02/12/21 02/12/21 Range/Units 08:23 08:23 08:23 WBC 6.7 (3.8-10.6) k/uL RBC 3.66 L (3.80-5.40) m/uL Hgb 12.5 (11.4-16.0) gm/dL Hct 35.9 (34.0-46.0) % MCV 98.0 (80.0-100.0) fL MCH 34.1 (25.0-35.0) pg MCHC 34.8 (31.0-37.0) g/dL RDW 12.7 (11.5-15.5) % Plt Count 173 (150-450) k/uL MPV 7.2 Neutrophils % 62 % Lymphocytes % 23 % Monocytes % 8 % Eosinophils % 2 % Basophils % 1 % Neutrophils # 4.2 (1.3-7.7) k/uL Lymphocytes # 1.5 (1.0-4.8) k/uL Monocytes # 0.6 (0-1.0) k/uL Eosinophils # 0.1 (0-0.7) k/uL Basophils # 0.0 (0-0.2) k/uL PT 10.6 (9.0-12.0) sec INR 1.0 (<1.2) Sodium (137-145) mmol/L Potassium (3.5-5.1) mmol/L Chloride (98-107) mmol/L Carbon Dioxide (22-30) mmol/L Anion Gap mmol/L BUN (7-17) mg/dL Creatinine (0.52-1.04) mg/dL Est GFR (CKD-EPI)AfAm (>60 ml/min/1.73 sqM) Est GFR (CKD-EPI)NonAf (>60 ml/min/1.73 sqM) Glucose (74-99) mg/dL Plasma Lactic Acid James (0.7-2.0) mmol/L Calcium (8.4-10.2) mg/dL Total Bilirubin (0.2-1.3) mg/dL AST (14-36) U/L ALT (4-34) U/L Alkaline Phosphatase (38-126) U/L Total Protein (6.3-8.2) g/dL Albumin (3.5-5.0) g/dL Lipase (23-300) U/L Urine Color Light Yellow Urine Appearance Clear (Clear) Urine pH 5.0 (5.0-8.0) Ur Specific [place] 1.006 (1.001-1.035) Urine Protein Negative (Negative) Urine Glucose (UA) Negative (Negative) Urine Ketones Negative (Negative) Urine Blood Negative (Negative) Urine Nitrite Negative (Negative) Urine Bilirubin Negative (Negative) Urine Urobilinogen <2.0 (<2.0) mg/dL Ur Leukocyte Esterase Trace H (Negative) Urine RBC <1 (0-5) /hpf Urine WBC 1 (0-5) /hpf Ur Squamous Epith Cells 1 (0-4) /hpf 02/12/21 02/12/21 Range/Units 08:23 08:30 WBC (3.8-10.6) k/uL RBC (3.80-5.40) m/uL Hgb (11.4-16.0) gm/dL Hct (34.0-46.0) % MCV (80.0-100.0) fL MCH (25.0-35.0) pg MCHC (31.0-37.0) g/dL RDW (11.5-15.5) % Plt Count (150-450) k/uL MPV Neutrophils % % Lymphocytes % % Monocytes % % Eosinophils % % Basophils % % Neutrophils # (1.3-7.7) k/uL Lymphocytes # (1.0-4.8) k/uL Monocytes # (0-1.0) k/uL Eosinophils # (0-0.7) k/uL Basophils # (0-0.2) k/uL PT (9.0-12.0) sec INR (<1.2) Sodium 128 L (137-145) mmol/L Potassium 3.8 (3.5-5.1) mmol/L Chloride 90 L (98-107) mmol/L Carbon Dioxide 27 (22-30) mmol/L Anion Gap 11 mmol/L BUN 22 H (7-17) mg/dL Creatinine 0.75 (0.52-1.04) mg/dL Est GFR (CKD-EPI)AfAm 83 (>60 ml/min/1.73 sqM) Est GFR (CKD-EPI)NonAf 72 (>60 ml/min/1.73 sqM) Glucose 123 H (74-99) mg/dL Plasma Lactic Acid James 1.8 (0.7-2.0) mmol/L Calcium 9.5 (8.4-10.2) mg/dL Total Bilirubin 0.8 (0.2-1.3) mg/dL AST 33 (14-36) U/L ALT 21 (4-34) U/L Alkaline Phosphatase 88 (38-126) U/L Total Protein 6.7 (6.3-8.2) g/dL Albumin 4.1 (3.5-5.0) g/dL Lipase 93 (23-300) U/L Urine Color Urine Appearance (Clear) Urine pH (5.0-8.0) Ur Specific [place] (1.001-1.035) Urine Protein (Negative) Urine Glucose (UA) (Negative) Urine Ketones (Negative) Urine Blood (Negative) Urine Nitrite (Negative) Urine Bilirubin (Negative) Urine Urobilinogen (<2.0) mg/dL Ur Leukocyte Esterase (Negative) Urine RBC (0-5) /hpf Urine WBC (0-5) /hpf Ur Squamous Epith Cells (0-4) /hpf Disposition Clinical Impression: Abdominal pain Disposition: HOME SELF-CARE Condition: Stable Instructions (If sedation given, give patient instructions): Abdominal Pain (ED) Additional Instructions: Please follow up with your doctor in 2-4 days. Return to the ED for any new or worsening symptoms. Is patient prescribed a controlled substance at d/c from ED?: No Referrals: Nuno Maynard MD [Primary Care Provider] - 1-2 days Time of Disposition: 10:48
== END 2021-02-12 11:02 | disposition home or self-care (01) ==
LOC: EC 07:24
DX: R10.9 Unspecified abdominal pain (principal); E78.5 Hyperlipidemia, unspecified; I10 Essential (primary) hypertension; Z85.3 Personal history of malignant neoplasm of breast
CPT/HCPCS: 36415; 80053; 83605; 83690; 85025; 85610; 81001; 74177; 99284; Q9967

== ENCOUNTER 2021-02-18 16:06 | Emergency (ER) | payer MEDICARE, BC ==
[2021-02-18 16:14] VITALS: TEMP 98.3
[2021-02-18] MEDS ORDERED: KETOROLAC 15 MG/ML 1 ML VIAL IVP STA (16:38)
[2021-02-18] MEDS ORDERED: HYDROmorphone 0.5 MG/0.5 ML SYRINGE IVP STA (16:39)
--- NOTE | 2021-02-18 16:45 | ED ---
General Adult HPI - General Chief complaint: Back Pain/Injury Stated complaint: Back Pain Source: patient, family, RN notes reviewed, old records reviewed Mode of arrival: ambulatory - History of Present Illness Initial comments: 85-year-old white female, alert and oriented 4, complaining of 10 out of 10 left-sided back pain. Patient states that this is the same pain that she's had chronically over several years. She states that sometimes it just flares up. She was not doing anything strenuous and she started to have pain in her left upper back states that she took Tylenol with no relief. She was tearful. Her is at the bedside and states that this is not new but this is chronic. She does have a history of cancer, hypertension, back surgeries and hysterectomy. She was last seen on February 12 for some abdominal pain CT was done and showed right-sided hydronephrosis with no obstruction. She denies any abdominal pain, fevers, nausea or vomiting. -: hour(s) (4) Location: back, left Radiation: non-radiation (Upper) Severity scale (1-10): 10 Quality: constant Consistency: constant Improves with: none Worsens with: movement Associated Symptoms: denies other symptoms Treatments Prior to Arrival: other (Tylenol) - Related Data Home Medications Medication Instructions Recorded Confirmed Meloxicam [Mobic] 7.5 mg PO DAILY 12/28/13 02/16/21 Omeprazole [PriLOSEC] 20 mg PO DAILY 12/28/13 02/16/21 Calcium Carbonate/Vitamin D3 1 tab PO DAILY 10/04/14 02/16/21 [Calcium 600 + Vit D Tablet] Atorvastatin [Lipitor] 40 mg PO HS 03/14/19 02/16/21 Cyclobenzaprine [Flexeril] 10 mg PO HS PRN 03/14/19 02/16/21 Letrozole 2.5 mg PO DAILY 03/14/19 02/16/21 Losartan/Hydrochlorothiazide 1 tab PO DAILY 03/14/19 02/16/21 [Losartan-Hctz 50-12.5 mg Tab] Multivit-Min/FA/Lycopen/Lutein 1 tab PO DAILY 03/14/19 02/16/21 [Centrum Silver Tablet] traZODone HCL 50 mg PO HS 03/14/19 02/16/21 Metoprolol Tartrate [Lopressor] 50 mg PO BID 02/12/21 02/16/21 polyethylene glycoL 3350 [Miralax] 17 gm PO Q2D 02/16/21 02/16/21 Previous Rx's Medication Instructions Recorded Ibuprofen [Motrin] 400 mg PO Q8HR PRN #30 tab 02/18/21 Lidocaine [Lidoderm 5% Patch] 1 patch TRANSDERM DAILY 10 Days 02/18/21 #10 patch Allergies Allergy/AdvReac Type Severity Reaction Status Date / Time No Known Allergies Allergy Verified 02/18/21 16:13 Review of Systems ROS Statement: Those systems with pertinent positive or pertinent negative responses have been documented in the HPI. ROS Other: All systems not noted in ROS Statement are negative. Past Medical History Past Medical History: Cancer, GERD/Reflux, Hearing Disorder / Deafness, Hyperlipidemia, Hypertension Additional Past Medical History / Comment(s): HEART MURMUR, LOWER BACK PAIN, HX BREAST CA. History of Any Multi-Drug Resistant Organisms: None Reported Past Surgical History: Back Surgery, Breast Surgery, Hysterectomy, Tubal Ligation Additional Past Surgical History / Comment(s): LT LUMPECTOMY. PAIN PROC., EXC EBONY CATARACTS. , left breast mastectomy, COLONOSCOPY Past Anesthesia/Blood Transfusion Reactions: No Reported Reaction Past Psychological History: No Psychological Hx Reported Smoking Status: Never smoker Past Alcohol Use History: None Reported Past Drug Use History: None Reported - Past Family History Mother Family Medical History: No Reported History General Exam General appearance: alert, in no apparent distress Head exam: Present: atraumatic, normocephalic, normal inspection Eye exam: Present: normal appearance, PERRL, EOMI, conjunctival injection (Right eye). Absent: scleral icterus, periorbital swelling, periorbital tenderness ENT exam: Present: normal exam, normal oropharynx, mucous membranes moist Neck exam: Present: normal inspection, full ROM. Absent: tenderness, meningismus, lymphadenopathy, thyromegaly Respiratory exam: Present: normal lung sounds bilaterally. Absent: respiratory distress, wheezes, rales, rhonchi, stridor, chest wall tenderness, accessory muscle use, decreased breath sounds, prolonged expiratory Cardiovascular Exam: Present: regular rate, normal rhythm, normal heart sounds. Absent: systolic murmur, diastolic murmur, rubs, gallop, clicks GI/Abdominal exam: Present: soft, normal bowel sounds. Absent: distended, tenderness, guarding, rebound, rigid Extremities exam: Present: normal inspection, full ROM, normal capillary refill. Absent: tenderness, pedal edema, joint swelling, calf tenderness Back exam: Present: normal inspection, tenderness (Left upper thoracic paraspinal, ), paraspinal tenderness. Absent: CVA tenderness (R), CVA tendern ess (L), muscle spasm, rash noted (scapular) Neurological exam: Present: alert, oriented X3, CN II-XII intact Psychiatric exam: Present: normal affect, normal mood Skin exam: Present: warm, dry, intact, normal color. Absent: rash, cyanosis, diaphoretic, erythema, petechiae, pallor, mottled Course Vital Signs 02/18/21 02/18/21 02/18/21 16:11 16:34 16:44 Temperature 98.3 F Pulse Rate 81 Respiratory 24 Rate Blood Pressure 231/99 196/128 202/81 O2 Sat by Pulse 95 Oximetry 02/18/21 17:41 Temperature Pulse Rate 61 Respiratory 17 Rate Blood Pressure 143/59 O2 Sat by Pulse Oximetry EKG Findings - EKG Results: EKG: sinus rhythm (Ventricular rate of 79, MS interval of 0.166, QRS of 0.84, QTC of 0.442) Medical Decision Making - Medical Decision Making Patient was given Dilaudid and Toradol and states she's had relief of her back pain. She states that she sees a doctor at the pain clinic and 2 weeks ago had an ablation to her lower back for chronic pain. She states that he was not concerned about her upper back pain however she will follow-up with him regarding that. Patient is requesting Lidoderm and Motrin with tylenol #3 for discharge. at bedside states that this is typical of her normal pain. She denies any shortness of breath lung sounds are clear bilaterally, she is afebrile. Her blood pressure is down to 143/59. EKG shows sinus rhythm with no ST elevation or ectopy. Case discussed with Dr. Tom Disposition Clinical Impression: Chronic back pain Disposition: HOME SELF-CARE Condition: Good Instructions (If sedation given, give patient instructions): Back Pain (ED) Additional Instructions: Take Tylenol threes as needed and use Lidoderm patches as prescribed. Take Motrin every 8 hours as needed for pain. Follow-up with the primary care doctor in 1 week. Return if any worsening symptoms including shortness of breath or fever. Prescriptions: Lidocaine [Lidoderm 5% Patch] 1 patch TRANSDERM DAILY 10 Days #10 patch Ibuprofen [Motrin] 400 mg PO Q8HR PRN #30 tab PRN Reason: Pain Is patient prescribed a controlled substance at d/c from ED?: No Referrals: Nuno Maynard MD [Primary Care Provider] - 1-2 days Time of Disposition: 18:05
[2021-02-18 17:41] VITALS: BP 143/59; PULSE 61; RESP 17
[2021-02-18] MEDS ORDERED: ACET/COD 300 MG/30 MG STARTER PACK 6 TAB BTL PO STA (18:05)
== END 2021-02-18 18:28 | disposition home or self-care (01) ==
LOC: EC 16:06
DX: G89.29 Other chronic pain (principal); M54.6 Pain in thoracic spine; I10 Essential (primary) hypertension; E78.5 Hyperlipidemia, unspecified; K21.9 Gastro-esophageal reflux disease without esophagitis; Z85.3 Personal history of malignant neoplasm of breast; Z79.1 Long term (current) use of non-steroidal anti-inflammatories (NSAID); Z79.899 Other long term (current) drug therapy
CPT/HCPCS: 96374; 96375; 99283; J1885; J1170

== ENCOUNTER 2021-02-19 10:53 | Day surgery (SDC) | payer MEDICARE, BC ==
[2021-02-16 09:18] VITALS: BMI 25.6
[2021-02-19 11:13] VITALS: TEMP 98.8
[2021-02-19] MEDS ORDERED: SODIUM CHLORIDE 0.9% 500 ML 500 ML IV ONE (11:14)
[2021-02-19] MEDS ORDERED: fentaNYL (PF) 50 MCG/ML 2 ML AMP ONE (12:18)
[2021-02-19] MEDS ORDERED: BENZOCAINE SPRAY 1 CAN TOPICAL ONE (12:26)
[2021-02-19] MEDS: MIDAZOLAM 2 MG/2 ML VIAL IVP ONE ×4 (12:38→12:45)
[2021-02-19] MEDS ORDERED: fentaNYL (PF) 50 MCG/ML 2 ML AMP IVP ONE (12:38)
[2021-02-19] MEDS ORDERED: SODIUM CHLORIDE 0.9% 1,000 ML IV SCH (13:00)
[2021-02-19 14:47] VITALS: BP 145/63; PULSE 69; RESP 18
--- NOTE | 2021-02-20 08:14 | P.PCN ---
Date of Procedure: 02/20/21 Preoperative Diagnosis: Aortic stenosis Description of Procedure: This patient was brought in for ADRIANO examination. She was prepped and draped in the usual fashion. The throat was sprayed with Hurricaine. Patient was given IV Versed and fentanyl for sedation. A transfer made to pass the probe into the esophagus. After multiple attempts, because of difficulty passing the probe, the procedure was canceled. No complications noted. Plan: To schedule ADRIANO with anesthesia
== END 2021-02-19 14:12 | disposition home or self-care (01) ==
LOC: CATHCVL 10:53
PROVIDERS: ATTEND Internal Medicine Cardiovascular Disease
DX: I35.0 Nonrheumatic aortic (valve) stenosis (principal); Z53.8 Procedure and treatment not carried out for other reasons; I10 Essential (primary) hypertension; E78.5 Hyperlipidemia, unspecified; E78.00 Pure hypercholesterolemia, unspecified; I65.23 Occlusion and stenosis of bilateral carotid arteries; Z79.899 Other long term (current) drug therapy
CPT/HCPCS: J2250; J3010

== ENCOUNTER 2021-03-06 08:50 | Day surgery (SDC) | payer MEDICARE, BC ==
[2021-03-02 12:33] VITALS: BMI 25.6
[2021-03-06] MEDS ORDERED: SODIUM CHLORIDE 0.9% 500 ML 500 ML IV ONE (09:04)
[2021-03-06 09:17] VITALS: TEMP 98.2
[2021-03-06] MEDS ORDERED: BENZOCAINE SPRAY 1 CAN MUCOUS MEM ONE (10:40)
[2021-03-06] MEDS ORDERED: PROPOFOL 10 MG/ML 20 ML VIAL IV ONE (10:43)
[2021-03-06] MEDS ORDERED: LIDOCAINE 1% INJ 10MG/ML (20 ML MDV) ONE (10:43)
[2021-03-06 11:15] VITALS: PULSE 63; RESP 14
--- NOTE | 2021-03-06 11:25 | P.TEE ---
Indications for Procedure(s): Assess aortic stenosis Date of Procedure: 03/06/21 Preoperative Diagnosis: Moderate to severe aortic stenosis Postoperative Diagnosis: Moderate aortic stenosis Procedure(s) Performed: ADRIANO Description of Procedure(s): INDICATION: This is a 85-year-old female with history of hypertension who is noted to have evidence of moderate to severe aortic stenosis. Patient is advised to have ADRIANO examination for further evaluation CONSENT: . Informed consent was obtained from patient and family PROCEDURE: . Patient was brought to the lab in a fasting state. Patient has prepped and draped in the usual fashion. The throat was sprayed with Hurricaine. Patient was given anesthesia by department of anesthesia. A lubricated Omni probe was introduced into the oropharynx and advanced into the esophagus and also stomach. Multiple views were obtained both from the stomach and esophagus. Color and pulse and continuous wave Doppler studies were performed along with saline contrast bubble injection. Patient tolerated the procedure well. No immediate complications FINDINGS: . The aortic valve is heavily calcified. By planimetry valve area about 1.1 cm was obtained. There is also 1-2+ aortic regurgitation. The aortic root diameter is normal. The mitral valve showed mild regurgitation. Status post showed moderate regurgitation. The interatrial septum appeared to be intact without any spontaneous shunt. Injection of the saline contrast bubbles did not reveal any evidence of shunt. Left atrial appendage is free of any clot. Left ventricular function appeared to be preserved IMPRESSION: #1. Moderate aortic stenosis with mild regurgitation. #2. Mild mitral regurgitation #3. Moderate tricuspid regurgitation #4. No PFO #5. No clot in the left eighth left in nature. #6. Left ventricle function appeared to be preserved PLAN: Continued medical therapy and follow-up with serial echoes
[2021-03-06] MEDS ORDERED: SODIUM CHLORIDE 0.9% 1,000 ML IV SCH (11:30)
[2021-03-06] MEDS ORDERED: ACETAMINOPHEN TAB 325 MG TAB ONE (11:51)
[2021-03-06 12:24] VITALS: BP 166/74
== END 2021-03-06 12:23 | disposition home or self-care (01) ==
LOC: CATHCVL 08:50
PROVIDERS: ATTEND Internal Medicine Cardiovascular Disease
DX: I35.0 Nonrheumatic aortic (valve) stenosis (principal)
CPT/HCPCS: 93312; 93320; 93325; J2001; J2704

== ENCOUNTER → 2021-11-19 | Outpatient (CLI) | payer MEDICARE, BC ==
--- NOTE | 2021-11-21 10:43 | MM ---
Reason for exam: screening (asymptomatic). Last mammogram was performed 1 year and 3 months ago. History: Patient is postmenopausal, has history of breast cancer at age 61, and previous chest radiation therapy. Family history of breast cancer in 2 paternal aunts. Mastectomy of the left breast, October 2018. Lumpectomy of the left breast, 1996. Radiation therapy. Took estrogen beginning at age 46. Taking antineoplastic beginning at age 83. Physical Findings: A clinical breast exam by your physician is recommended on an annual basis and results should be correlated with mammographic findings. MG 3D Scr Walter Unilateral W/Cad CC, MLO, and XCCL view(s) were taken of the right breast. Prior study comparison: August 22, 2020, bilateral MG 3d scr walter unilateral w/cad. March 25, 2019, mammogram, performed at [place]. Previous mammotome biopsy in the right breast. No significant changes when compared with prior studies. ASSESSMENT: Benign, BI-RAD 2 RECOMMENDATION: Routine screening mammogram of the right breast in 1 year.
== END | disposition home or self-care (01) ==
LOC: RADMAMWWP 09:53
PROVIDERS: ATTEND Internal Medicine Hematology & Oncology
DX: Z12.31 Encounter for screening mammogram for malignant neoplasm of breast (principal); Z80.3 Family history of malignant neoplasm of breast; Z85.3 Personal history of malignant neoplasm of breast; Z78.0 Asymptomatic menopausal state
CPT/HCPCS: 77067

== ENCOUNTER 2021-12-12 08:40 | Inpatient (IN) | payer MEDICARE, BC ==
[2021-12-12] MEDS ORDERED: SODIUM CHLORIDE 0.9% 1,000 ML IV STA (09:04)
[2021-12-12 09:23] LABS: Basophils % (A) 0 %; Eosinophils # (A) 0.1 k/uL (0-0.7); Eosinophils % (A) 1 %; HCT 36.2 % (34.0-46.0); HGB 12.4 gm/dL (11.4-16.0); Lymphocytes # (A) 1.1 k/uL (1.0-4.8); Lymphocytes % (A) 11 %; MCH 34.5 pg (25.0-35.0); MCHC 34.2 g/dL (31.0-37.0); MCV 100.9 fL (80.0-100.0); Mean Platelet Volume 6.9; Monocytes # (A) 0.5 k/uL (0-1.0); Monocytes % (A) 5 %; Neutrophils # (A) 8.1 k/uL (1.3-7.7); Neutrophils % (A) 81 %; Platelet Count 232 k/uL (150-450); RBC 3.58 m/uL (3.80-5.40); RDW 12.7 % (11.5-15.5)
[2021-12-12 09:38] LABS: Appearance,Urine Clear (Clear); Bilirubin,Urine Negative (Negative); Blood,Urine Negative (Negative); Color,Urine Yellow; Glucose,Urine (UA) Negative (Negative); Hyaline Casts,Urine 16 /lpf (0-2); Ketones,Urine Negative (Negative); Leukocyte Esterase,Urine Small (Negative); Mucus,Urine Moderate /hpf; Nitrite,Urine Negative (Negative); Protein,Urine Trace (Negative); RBC,Urine 2 /hpf (0-5); Specific Gravity,Urine 1.014 (1.001-1.035); Squamous Epithelial Cell,Urine 2 /hpf (0-4); WBC,Urine 3 /hpf (0-5)
[2021-12-12 09:43] LABS: ALT 26 U/L (4-34); AST 32 U/L (14-36); African American GFR (CKD) >90 (>60 ml/min/1.73 sqM); Albumin 3.7 g/dL (3.5-5.0); Alkaline Phosphatase 84 U/L (38-126); Amylase 34 U/L (30-110); Anion Gap 10 mmol/L; Blood Urea Nitrogen 17 mg/dL (7-17); Calcium 8.8 mg/dL (8.4-10.2); Carbon Dioxide 27 mmol/L (22-30); Chloride 93 mmol/L (98-107); Glucose 162 mg/dL (74-99); Lipase 70 U/L (23-300); Non-African American GFR(CKD) 80 (>60 ml/min/1.73 sqM); Potassium 4.1 mmol/L (3.5-5.1); Sodium 130 mmol/L (137-145); Total Bilirubin 1.2 mg/dL (0.2-1.3); Total Protein 6.7 g/dL (6.3-8.2)
--- NOTE | 2021-12-12 10:55 | CT ---
EXAMINATION TYPE: CT abdomen pelvis w con DATE OF EXAM: 12/12/2021 COMPARISON: CT dated 02/12/2021 HISTORY: Abdominal pain CT DLP: 686.6 mGycm Automated exposure control for dose reduction was used. TECHNIQUE: Helical acquisition of images was performed from the lung bases through the pelvis. CONTRAST: Performed without Oral Contrast and with IV Contrast, patient injected with 100 mL of Isovue 300. FINDINGS: LUNG BASES: Minimal linear pulmonary atelectasis. LIVER/GB: Previous cholecystectomy. No definite hepatic focal lesion. PANCREAS: Slightly prominent pancreatic duct, stable. SPLEEN: Stable inferior splenic cyst. ADRENALS: Slightly more prominent bilateral adrenal nodules measuring up to 2.4 cm on the right side compared to 2.3 cm previously and 18 mm on the left side compared to 16 mm previously. KIDNEYS: Stable right renal focal cortical defects. Few left renal hypodensities, likely representing tiny renal cysts. Unremarkable kidneys otherwise. FREE AIR: No free air is visualized. RETROPERITONEAL ADENOPATHY: None visualized PELVIC ADENOPATHY: No pathologically enlarged pelvic lymph nodes. OSSEOUS STRUCTURES: Degenerative changes of the lower thoracic, lumbar spine and hip joints. BOWEL: Unremarkable nondistended stomach, duodenum and small bowel. Marginally enhancing collection is seen along the left inferolateral aspect of the mid sigmoid colon measuring 2.7 x 4.4 x 3.6 cm, li nita representing an abscess formation secondary to previous diverticulitis. It is inseparable inferi adela from the urinary bladder roof which appears thickened. A developing fistula with the urinary jimmy dder or vagina vault cannot be excluded. The abscess is also inseparable from the left pelvic side wa ll, left side of the vagina vault and possibly the left adnexa. The remainder of the colon demonstrat es scattered diverticulosis. Normal appendix. Previous hysterectomy. No gross adnexal mass. OTHER: Arterial atherosclerotic calcifications. No sizable ascites. Left pelvic inflammatory changes. IMPRESSION: Left-sided pelvic abscess between the mid sigmoid colon and the urinary bladder and possibly the left adnexa and the left side of the vagina vault with surrounding inflammatory changes inseparable from the left pelvic sidewall, likely representing sequela of previous diverticulitis. Recommend surgical consultation. Developing fistula between the sigmoid colon and the urinary bladder or the vagina vaul t cannot be excluded. Other findings as described above.
[2021-12-12] MEDS ORDERED: NALOXONE 0.4 MG/ML 1 ML VIAL IV PRN (11:23)
[2021-12-12] MEDS ORDERED: ONDANSETRON 4 MG/2 ML VIAL IVP PRN (11:23)
--- NOTE | 2021-12-12 11:23 | ED ---
Abdominal Pain HPI - General Chief Complaint: Abdominal Pain Stated Complaint: Pelvic Pain Time Seen by Provider: 12/12/21 08:50 Source: patient, RN notes reviewed Limitations: no limitations - History of Present Illness Initial Comments: 86-year-old female presents emergency Department with chief complaint of lower abdominal pain. She states she's had for about one week's worth of abdominal pain states that he was really severe it does seem is improving but still present in the lower abdomen. She denies any significant change in bowel habits no rectal bleeding. She has no dysuria no hematuria no fevers or chills slight nausea vomiting - Related Data Home Medications Medication Instructions Recorded Confirmed Meloxicam [Mobic] 7.5 mg PO DAILY 12/28/13 03/06/21 Omeprazole [PriLOSEC] 20 mg PO DAILY 12/28/13 03/06/21 Calcium Carbonate/Vitamin D3 1 tab PO DAILY 10/04/14 03/06/21 [Calcium 600 + Vit D Tablet] Atorvastatin [Lipitor] 40 mg PO HS 03/14/19 03/06/21 Cyclobenzaprine [Flexeril] 10 mg PO HS PRN 03/14/19 03/06/21 Letrozole 2.5 mg PO DAILY 03/14/19 03/06/21 Losartan/Hydrochlorothiazide 1 tab PO DAILY 03/14/19 03/06/21 [Losartan-Hctz 50-12.5 mg Tab] Multivit-Min/FA/Lycopen/Lutein 1 tab PO DAILY 03/14/19 03/06/21 [Centrum Silver Tablet] traZODone HCL 50 mg PO HS 03/14/19 03/06/21 Metoprolol Tartrate [Lopressor] 50 mg PO BID 02/12/21 03/06/21 polyethylene glycoL 3350 [Miralax] 17 gm PO Q2D 02/16/21 03/02/21 Previous Rx's Medication Instructions Recorded Ibuprofen [Motrin] 400 mg PO Q8HR PRN #30 tab 02/18/21 Lidocaine [Lidoderm 5% Patch] 1 patch TRANSDERM DAILY 10 Days 02/18/21 #10 patch Allergies Allergy/AdvReac Type Severity Reaction Status Date / Time No Known Allergies Allergy Verified 12/12/21 08:41 Review of Systems ROS Statement: Those systems with pertinent positive or pertinent negative responses have been documented in the HPI. ROS Other: All systems not noted in ROS Statement are negative. Past Medical History Past Medical History: Cancer, GERD/Reflux, Hearing Disorder / Deafness, Hyperlipidemia, Hypertension Additional Past Medical History / Comment(s): HEART MURMUR, LOWER BACK PAIN, HX BREAST CA. SEE DR XIE'S HISTORY AND PHYSICAL FOR CARDIAC HISTORY History of Any Multi-Drug Resistant Organisms: None Reported Past Surgical History: Back Surgery, Breast Surgery, Hysterectomy, Tubal Ligat ion Additional Past Surgical History / Comment(s): LT LUMPECTOMY. PAIN PROC., EXC EBONY CATARACTS. , left breast mastectomy, COLONOSCOPY Past Anesthesia/Blood Transfusion Reactions: No Reported Reaction Past Psychological History: No Psychological Hx Reported Smoking Status: Never smoker Past Alcohol Use History: None Reported Past Drug Use History: None Reported - Past Family History Mother Family Medical History: No Reported History General Exam Limitations: no limitations General appearance: alert, in no apparent distress Head exam: Present: atraumatic, normocephalic, normal inspection Eye exam: Present: normal appearance, PERRL, EOMI. Absent: scleral icterus, conjunctival injection, periorbital swelling ENT exam: Present: normal exam, normal oropharynx, mucous membranes moist Neck exam: Present: normal inspection, full ROM. Absent: tenderness, meningismus, lymphadenopathy Respiratory exam: Present: normal lung sounds bilaterally. Absent: respiratory distress, wheezes, rales, rhonchi, stridor Cardiovascular Exam: Present: regular rate, normal rhythm, normal heart sounds. Absent: systolic murmur, diastolic murmur, rubs, gallop, clicks GI/Abdominal exam: Present: soft, tenderness, normal bowel sounds. Absent: distended, guarding, rebound, rigid Back exam: Absent: CVA tenderness (R), CVA tenderness (L) Neurological exam: Present: alert Skin exam: Present: warm, dry, intact, normal color. Absent: rash Course Vital Signs 12/12/21 08:41 Temperature 98.1 F Pulse Rate 81 Respiratory 16 Rate Blood Pressure 133/62 O2 Sat by Pulse 96 Oximetry Medical Decision Making - Medical Decision Making Patient CT shows evidence of diverticulitis with abscess. I did discuss case with Dr. Mcdonald recommends IV antibiotics and request consult to Dr. Ramirez - Lab Data Result diagrams: 12/12/21 09:07 12/12/21 09:07 Lab Results 12/12/21 12/12/21 12/12/21 Range/Units 09:07 09:07 09:07 WBC 10.0 (3.8-10.6) k/uL RBC 3.58 L (3.80-5.40) m/uL Hgb 12.4 (11.4-16.0) gm/dL Hct 36.2 (34.0-46.0) % MCV 100.9 H (80.0-100.0) fL MCH 34.5 (25.0-35.0) pg MCHC 34.2 (31.0-37.0) g/dL RDW 12.7 (11.5-15.5) % Plt Count 232 (150-450) k/uL MPV 6.9 Neutrophils % 81 % Lymphocytes % 11 % Monocytes % 5 % Eosinophils % 1 % Basophils % 0 % Neutrophils # 8.1 H (1.3-7.7) k/uL Lymphocytes # 1.1 (1.0-4.8) k/uL Monocytes # 0.5 (0-1.0) k/uL Eosinophils # 0.1 (0-0.7) k/uL Basophils # 0.0 (0-0.2) k/uL Sodium 130 L (137-145) mmol/L Potassium 4.1 (3.5-5.1) mmol/L Chloride 93 L (98-107) mmol/L Carbon Dioxide 27 (22-30) mmol/L Anion Gap 10 mmol/L BUN 17 (7-17) mg/dL Creatinine 0.65 (0.52-1.04) mg/dL Est GFR (CKD-EPI)AfAm >90 (>60 ml/min/1.73 sqM) Est GFR (CKD-EPI)NonAf 80 (>60 ml/min/1.73 sqM) Glucose 162 H (74-99) mg/dL Calcium 8.8 (8.4-10.2) mg/dL Total Bilirubin 1.2 (0.2-1.3) mg/dL AST 32 (14-36) U/L ALT 26 (4-34) U/L Alkaline Phosphatase 84 (38-126) U/L Total Protein 6.7 (6.3-8.2) g/dL Albumin 3.7 (3.5-5.0) g/dL Amylase 34 (30-110) U/L Lipase 70 (23-300) U/L Urine Color Yellow Urine Appearance Clear (Clear) Urine pH 6.0 (5.0-8.0) Ur Specific Dexter 1.014 (1.001-1.035) Urine Protein Trace H (Negative) Urine Glucose (UA) Negative (Negative) Urine Ketones Negative (Negative) Urine Blood Negative (Negative) Urine Nitrite Negative (Negative) Urine Bilirubin Negative (Negative) Urine Urobilinogen 4.0 (<2.0) mg/dL Ur Leukocyte Esterase Small H (Negative) Urine RBC 2 (0-5) /hpf Urine WBC 3 (0-5) /hpf Ur Squamous Epith Cells 2 (0-4) /hpf Hyaline Casts 16 H (0-2) /lpf Urine Mucus Moderate H (None) /hpf Disposition Clinical Impression: Diverticulitis of intestine with abscess Disposition: ADMITTED IP TO THIS [facility] Condition: Fair Referrals: Nuno Maynard MD [Primary Care Provider] - 1-2 days Time of Disposition: 11:23
[2021-12-12] MEDS ORDERED: ACETAMINOPHEN IV (For NPO) 1,000 MG in EMPTY BAG 1 BAG IVPB PRN (12:04)
[2021-12-12] MEDS: PIPERACILLIN-TAZOBACTAM 3.375 GM in SODIUM CHLORIDE 0.9% 100 ML IVPB SCH ×2 (12:12→16:55)
[2021-12-12] MEDS: SODIUM CHLORIDE 0.9% 1,000 ML IV SCH (12:14)
[2021-12-12] MEDS: INSULIN ASPART (NovoLOG) 100 UNIT/ML VIAL SQ SCH ×3 (14:06→21:59)
--- NOTE | 2021-12-12 14:33 | P.HPIM ---
History of Present Illness H&P Date: 12/12/21 Chief Complaint: Abdominal pain 1 week This is a pleasant 86-year-old female with past medical history of breast CA, status post left mastectomy, moderate aortic stenosis with preserved LV function, moderate tricuspid regurgitation and multiple other medical issues presented to the ER with complaints of ongoing "sharp" bilateral lower abdominal pain, worse on LLQ 1 week, accompanied by bloating/trapped gas, decreased appetite but with no nausea or vomiting. Reports similar presentation about a year ago, following up with PCP in office with med adjustment and symptoms resolved. Denies any rectal bleeding, denies change in bowel or urinary habits. Denies any hematuria or dysuria.CT reporting diverticulitis with left sided pelvic abscess between the mid sigmoid colon and the urinary bladder and possibly left adnexa and left sided vagina vault with surrounding i nflammatory changes inseparable of left pelvic sidewall, likely presenting sequela of previous diverticulitis, developing fistula between sigmoid colon and urinary bladder or vagina possible. Afebrile, normal WBC, hemoglobin 12.4, platelets 232, sodium 1:30 bicarb 27, renal function stable, glucose 162, LFTs within normal limits. UA reporting moderate mucus, 16 hyaline cast, small leukocytes, negative nitrates. Review of Systems ROS Statement: Those systems with pertinent positive or pertinent negative responses have been documented in the HPI. ROS Other: All systems not noted in ROS Statement are negative. Past Medical History Past Medical History: Cancer, GERD/Reflux, Hearing Disorder / Deafness, Hyperlipidemia, Hypertension Additional Past Medical History / Comment(s): HEART MURMUR, LOWER BACK PAIN, HX BREAST CA. SEE DR XIE'S HISTORY AND PHYSICAL FOR CARDIAC HISTORY History of Any Multi-Drug Resistant Organisms: None Reported Past Surgical History: Back Surgery, Breast Surgery, Hysterectomy, Tubal Ligation Additional Past Surgical History / Comment(s): LT LUMPECTOMY. PAIN PROC., EXC EBONY CATARACTS. , left breast mastectomy, COLONOSCOPY Past Anesthesia/Blood Transfusion Reactions: No Reported Reaction Past Psychological History: No Psychological Hx Reported Smoking Status: Never smoker Past Alcohol Use History: None Reported Past Drug Use History: None Reported - Past Family History Mother Family Medical History: No Reported History Father Family Medical History: No Reported History Additional Family Medical History / Comment(s): Father is healthy Medications and Allergies Home Medications Medication Instructions Recorded Confirmed Type Meloxicam [Mobic] 7.5 mg PO DAILY 12/28/13 12/12/21 History Calcium Carbonate/Vitamin D3 1 tab PO DAILY 10/04/14 12/12/21 History [Calcium 600 + Vit D Tablet] Atorvastatin [Lipitor] 40 mg PO DAILY 03/14/19 12/12/21 History Cyclobenzaprine [Flexeril] 10 mg PO HS PRN 03/14/19 12/12/21 History Letrozole 2.5 mg PO DAILY 03/14/19 12/12/21 History Losartan/Hydrochlorothiazide 1 tab PO DAILY 03/14/19 12/12/21 History [Losartan-Hctz 50-12.5 mg Tab] Multivit-Min/FA/Lycopen/Lutein 1 tab PO DAILY 03/14/19 12/12/21 History [Centrum Silver Tablet] traZODone HCL 25 mg PO HS 03/14/19 12/12/21 History Metoprolol Tartrate [Lopressor] 50 mg PO BID 02/12/21 12/12/21 History Omeprazole [PriLOSEC] 40 mg PO DAILY 12/12/21 12/12/21 History metFORMIN HCL ER [Glucophage XR] 500 mg PO DAILY 12/12/21 12/12/21 History Allergies Allergy/AdvReac Type Severity Reaction Status Date / Time No Known Allergies Allergy Verified 12/12/21 11:49 Physical Exam Vitals: Vital Signs Temp Pulse Resp BP Pulse Ox 12/12/21 08:41 98.1 F 81 16 133/62 96 Intake and Output 12/11/21 12/12/21 12/12/21 22:59 06:59 14:59 Other: Weight 57.153 kg PHYSICAL EXAM: VITAL SIGNS: As above GENERAL: Sitting up at side of bed, alert and oriented 3, no acute distress. HEENT: Conjunctivae normal. eyes normal. NECK: No JVD. No thyroid enlargement. No LNs CARDIOVASCULAR: S1, S2 regular. Positive murmur RESPIRATION: Breath sounds diminished in the bases. No rhonchi or crackles. No bronchial breathing. ABDOMEN: Soft, nondistended, bilateral lower quadrant tenderness- greatest on the LLQ, No guarding. no masses palpable. No ascites, No hepatosplenomegaly.Bowel sounds heard. LEGS: No edema. no swelling PSYCHIATRY: Alert and oriented X3, mood and affect normal. NERVOUS SYSTEM: Cranial N 2-12 grossly normal. No focal deficits. Strength and sensation grossly intact. Skin: Warm and dry, no rash Results CBC & Chem 7: 12/12/21 09:07 12/12/21 09:07 Labs: Abnormal Lab Results - Last 24 Hours (Table) 12/12/21 12/12/21 12/12/21 Range/Units 09:07 09:07 09:07 RBC 3.58 L (3.80-5.40) m/uL MCV 100.9 H (80.0-100.0) fL Neutrophils # 8.1 H (1.3-7.7) k/uL Sodium 130 L (137-145) mmol/L Chloride 93 L (98-107) mmol/L Glucose 162 H (74-99) mg/dL Urine Protein Trace H (Negative) Ur Leukocyte Esterase Small H (Negative) Hyaline Casts 16 H (0-2) /lpf Urine Mucus Moderate H (None) /hpf Assessment and Plan Assessment: Acute diverticulitis with left-sided pelvic abscess, possible developing fistula reported per CT Hyponatremia Diabetes mellitus Moderate Aortic stenosis, preserved LV function per ADRIANO 03/06/2021 Gastroesophageal reflux disease Hypertension Hyperlipidemia Breast cancer, history of left breast mastectomy Hard of hearing Plan: Continue on current medication regime ,monitoring and symptomatic treatment. Gentle IV fluid hydration, IV antibiotics Zosyn with general surgery consult to Dr. Ramirez in place. Antiemetics/Zofran ordered. GI prophylaxis with Protonix ordered. Clear liquid diet if okay with surgery. The impression and plan of care has been dictated as directed. : I performed a history and examination of this patient, discussed the same with the dictator. I agree with the dictator's note ,documented as a scribe. Any additional findings or plans will be noted.
--- NOTE | 2021-12-12 15:19 | P.GSCN ---
History of Present Illness Consult date: 12/12/21 History of present illness: CHIEF COMPLAINT: Left lower quadrant abdominal pain HISTORY OF PRESENT ILLNESS: This is a 86-year-old female who presents to the hospital with complaints of left lower quadrant abdominal for the last week and a half. She reports her pain 8 out of 10 on admission and is now at 4 out of 10. The pain is worse with coughing. Patient denies any prior history of diverticulitis. Her last colonoscopy was 10 years ago and reported as negative. Patient also has a surgical history of hysterectomy. Patient has computed tomography scan abdomen and pelvis showing left-sided pelvic abscess between the mid sigmoid colon and urinary bladder and possible left adnexa and left side of the vaginal vault with surrounding inflammatory changes inseparable from the left pelvic sidewall likely representing sequelae of previous diverticulitis. Developing fistula between the sigmoid colon and urinary bladder or the vagina vault cannot be excluded. Patient denies any fever chills or sweats. Denies any nausea or vomiting. Had reported decreased appetite. She denies any urinary symptoms. Denies passing any air or stool with urine. She is currently on a clear liquid diet. She is afebrile and white count normal at 10. She's been started on IV antibiotics. Surgical service consulted for diverticulitis with abscess. PAST MEDICAL HISTORY: Moderate aortic stenosis, breast cancer status post left breast mastectomy, hypertension and hyperlipidemia PAST SURGICAL HISTORY: Hysterectomy, tubal ligation, back surgery MEDICATIONS: See list. ALLERGIES: See list. SOCIAL HISTORY: No illicit drug use. REVIEW OF SYSTEMS: CONSTITUTIONAL: Denies fever or chills. HEENT: Denies blurred vision, vision changes, or eye pain. Denies hemoptysis CARDIOVASCULAR: Denies chest pain or pressure. RESPIRATORY: No shortness of breath. GASTROINTESTINAL: See HPI for pertinent findings HEMATOLOGIC: Denies bleeding disorders. GENITOURINARY: Denies any blood in urine or increased urinary frequency. SKIN: Denies pruitis. Denies rash. PHYSICAL EXAM: VITAL SIGNS: Reviewed GENERAL: Well-developed in no acute distress. HEENT: No sclera icterus. Extraocular movements grossly intact. Moist buccal mucosa. Head is atraumatic, normocephalic. No nasal drainage. ABDOMEN: Soft. Nondistended. Tenderness to palpation left lower quadrant NEUROLOGIC: Alert and oriented. Cranial nerves II through XII grossly intact. LABORATORY DATA: WBC is 10 hgb 12.4 platelets 232 Sodium is 130 potassium is 4.1 creatinine 0.65 Lactic acid 1.3 LFTs normal Lipase 70 Urinalysis small leukocyte esterase and moderate mucus IMAGING: Computed tomography scan findings as stated above ASSESSMENT: 1. Acute diverticulitis with left-sided pelvic abscess and concerns for developing fistula between the sigmoid colon and urinary bladder or vaginal vault. PLAN: -Further recommendations forthcoming her surgeon -Continue antibiotics -Continue IV fluids -Continue pain medication as needed Thank you for this consultation Physician Student Affairs Dean note has been reviewed by physician. Signing provider agrees with the documented findings, assessment, and plan of care. Past Medical History Past Medical History: Cancer, GERD/Reflux, Hearing Disorder / Deafness, Hyperlipidemia, Hypertension Additional Past Medical History / Comment(s): HEART MURMUR, LOWER BACK PAIN, HX BREAST CA. SEE DR XIE'S HISTORY AND PHYSICAL FOR CARDIAC HISTORY History of Any Multi-Drug Resistant Organisms: None Reported Past Surgical History: Back Surgery, Breast Surgery, Hysterectomy, Tubal Ligation Additional Past Surgical History / Comment(s): LT LUMPECTOMY. PAIN PROC., EXC EBONY CATARACTS. , left breast mastectomy, COLONOSCOPY Past Anesthesia/Blood Transfusion Reactions: No Reported Reaction Past Psychological History: No Psychological Hx Reported Smoking Status: Never smoker Past Alcohol Use History: None Reported Past Drug Use History: None Reported - Past Family History Father Family Medical History: No Reported History Additional Family Medical History / Comment(s): Father is healthy Mother Family Medical History: No Reported History Additional Family Medical History / Comment(s): Mother had bowel surgery and pt cannot recall reason but knows it was not cancer. Medications and Allergies Home Medications Medication Instructions Recorded Confirmed Type Meloxicam [Mobic] 7.5 mg PO DAILY 12/28/13 12/12/21 History Calcium Carbonate/Vitamin D3 1 tab PO DAILY 10/04/14 12/12/21 History [Calcium 600 + Vit D Tablet] Atorvastatin [Lipitor] 40 mg PO DAILY 03/14/19 12/12/21 History Cyclobenzaprine [Flexeril] 10 mg PO HS PRN 03/14/19 12/12/21 History Letrozole 2.5 mg PO DAILY 03/14/19 12/12/21 History Losartan/Hydrochlorothiazide 1 tab PO DAILY 03/14/19 12/12/21 History [Losartan-Hctz 50-12.5 mg Tab] Multivit-Min/FA/Lycopen/Lutein 1 tab PO DAILY 03/14/19 12/12/21 History [Centrum Silver Tablet] traZODone HCL 25 mg PO HS 03/14/19 12/12/21 History Metoprolol Tartrate [Lopressor] 50 mg PO BID 02/12/21 12/12/21 History Omeprazole [PriLOSEC] 40 mg PO DAILY 12/12/21 12/12/21 History metFORMIN HCL ER [Glucophage XR] 500 mg PO DAILY 12/12/21 12/12/21 History Allergies Allergy/AdvReac Type Severity Reaction Status Date / Time No Known Allergies Allergy Verified 12/12/21 11:49 Surgical - Exam Vital Signs Temp Pulse Resp BP Pulse Ox 98.1 F 81 16 133/62 96 12/12/21 08:41 12/12/21 08:41 12/12/21 08:41 12/12/21 08:41 12/12/21 08:41 Results - Labs 12/12/21 09:07 12/12/21 09:07 Abnormal Lab Results - Last 24 Hours (Table) 12/12/21 12/12/21 12/12/21 Range/Units 09:07 09:07 09:07 RBC 3.58 L (3.80-5.40) m/uL MCV 100.9 H (80.0-100.0) fL Neutrophils # 8.1 H (1.3-7.7) k/uL Sodium 130 L (137-145) mmol/L Chloride 93 L (98-107) mmol/L Glucose 162 H (74-99) mg/dL Urine Protein Trace H (Negative) Ur Leukocyte Esterase Small H (Negative) Hyaline Casts 16 H (0-2) /lpf Urine Mucus Moderate H (None) /hpf Diabetes panel 12/12/21 Range/Units 09:07 Sodium 130 L (137-145) mmol/L Potassium 4.1 (3.5-5.1) mmol/L Chloride 93 L (98-107) mmol/L Carbon Dioxide 27 (22-30) mmol/L BUN 17 (7-17) mg/dL Creatinine 0.65 (0.52-1.04) mg/dL Glucose 162 H (74-99) mg/dL Calcium 8.8 (8.4-10.2) mg/dL AST 32 (14-36) U/L ALT 26 (4-34) U/L Alkaline Phosphatase 84 (38-126) U/L Total Protein 6.7 (6.3-8.2) g/dL Albumin 3.7 (3.5-5.0) g/dL Calcium panel 12/12/21 Range/Units 09:07 Calcium 8.8 (8.4-10.2) mg/dL Albumin 3.7 (3.5-5.0) g/dL Pituitary panel 12/12/21 Range/Units 09:07 Sodium 130 L (137-145) mmol/L Potassium 4.1 (3.5-5.1) mmol/L Chloride 93 L (98-107) mmol/L Carbon Dioxide 27 (22-30) mmol/L BUN 17 (7-17) mg/dL Creatinine 0.65 (0.52-1.04) mg/dL Glucose 162 H (74-99) mg/dL Calcium 8.8 (8.4-10.2) mg/dL Adrenal panel 12/12/21 Range/Units 09:07 Sodium 130 L (137-145) mmol/L Potassium 4.1 (3.5-5.1) mmol/L Chloride 93 L (98-107) mmol/L Carbon Dioxide 27 (22-30) mmol/L BUN 17 (7-17) mg/dL Creatinine 0.65 (0.52-1.04) mg/dL Glucose 162 H (74-99) mg/dL Calcium 8.8 (8.4-10.2) mg/dL Total Bilirubin 1.2 (0.2-1.3) mg/dL AST 32 (14-36) U/L ALT 26 (4-34) U/L Alkaline Phosphatase 84 (38-126) U/L Total Protein 6.7 (6.3-8.2) g/dL Albumin 3.7 (3.5-5.0) g/dL
[2021-12-12] MEDS: PANTOPRAZOLE 40 MG/10 ML VIAL IVP SCH (15:20)
[2021-12-12 16:41] LABS: Glucose,Whole Blood 102 mg/dL (75-99)
[2021-12-12 20:16] LABS: Glucose,Whole Blood 136 mg/dL (75-99)
[2021-12-12] MEDS: traZODone HCL 50 MG TAB PO SCH (22:00)
[2021-12-12] MEDS: METOPROLOL TARTRATE 50 MG TAB PO SCH (22:00)
[2021-12-13] MEDS: PIPERACILLIN-TAZOBACTAM 3.375 GM in SODIUM CHLORIDE 0.9% 100 ML IVPB SCH ×4 (00:35→22:56)
[2021-12-13] MEDS: SODIUM CHLORIDE 0.9% 1,000 ML IV SCH ×2 (00:35→14:00)
[2021-12-13 02:38] LABS: Glucose,Whole Blood 110 mg/dL (75-99)
[2021-12-13 06:24] LABS: Glucose,Whole Blood 100 mg/dL (75-99)
[2021-12-13 06:50] LABS: Glucose,Whole Blood 99 mg/dL (75-99)
[2021-12-13] MEDS: INSULIN ASPART (NovoLOG) 100 UNIT/ML VIAL SQ SCH ×4 (06:51→21:07)
[2021-12-13] MEDS ORDERED: ACETAMINOPHEN IV (For NPO) 1,000 MG in EMPTY BAG 1 BAG IVPB PRN (07:56)
[2021-12-13] MEDS: METOPROLOL TARTRATE 50 MG TAB PO SCH ×2 (08:14→21:06)
[2021-12-13] MEDS: PANTOPRAZOLE 40 MG/10 ML VIAL IVP SCH (08:15)
[2021-12-13 09:29] LABS: Basophils # (A) 0.04 X 10*3/uL (0.00-0.10); Basophils % (A) 0.4 %; Eosinophils # (A) 0.07 X 10*3/uL (0.04-0.35); Eosinophils % (A) 0.7 %; HCT 29.5 % (37.2-46.3); Immature Grans, Automated 0.4 %; Lymphocytes # (A) 1.44 X 10*3/uL (0.90-5.00); MCH 33.2 pg (27.0-32.0); MCHC 33.9 g/dL (32.0-37.0); Mean Platelet Volume 9.5 fL (9.5-12.2); Monocytes # (A) 1.02 X 10*3/uL (0.20-1.00); Monocytes % (A) 10.6 %; NRBC Per 100 WBC 0 /100 WBCS (0.0-0.0); Neutrophils # (A) 6.98 X 10*3/uL (1.80-7.70); Neutrophils % (A) 72.9 %; Platelet Count 190 X 10*3/uL (140-440); RBC 3.01 X 10*6/uL (4.10-5.20); RDW 12.2 % (11.5-14.5); WBC 9.59 X 10*3/uL (4.50-10.00)
[2021-12-13 09:44] LABS: African American GFR (CKD) 94.3 (60.0-200.0); Anion Gap 10.5 mmol/L (10.00-18.00); Blood Urea Nitrogen 10.2 mg/dL (9.0-27.0); Calcium 8.8 mg/dL (8.7-10.3); Carbon Dioxide 24.5 mmol/L (20.0-27.5); Magnesium 1.5 mg/dL (1.5-2.4); Non-African American GFR(CKD) 81.4 (60.0-200.0); Potassium 4.4 mmol/L (3.5-5.5)
[2021-12-13] MEDS ORDERED: MAGNESIUM SULFATE-D5W PMX 1 GM in DEXTROSE/WATER 1 100ML.BAG IVPB ONE (11:37)
[2021-12-13 11:38] LABS: Glucose,Whole Blood 111 mg/dL (75-99)
--- NOTE | 2021-12-13 11:39 | P.PN ---
Subjective Progress Note Date: 12/13/21 CHIEF COMPLAINT: Abdominal pain HISTORY OF PRESENT ILLNESS: Patient still complaining of left lower quadrant abdominal pain. She did have some increase in pain through the night. However rates that pain around a 4 out of 10. Pain is controlled with the IV Tylenol. This morning she is more comfortable lying in bed. She has had bowel movements. No blood reported in stool. Denies any nausea or vomiting. Afebrile. WBC is 9.59 hemoglobin is 10 platelets 190 sodium 133 potassium is 4.4 creatinine 0.6 magnesium is 1.5 PHYSICAL EXAM: VITAL SIGNS: Reviewed. GENERAL: Well-developed in no acute distress. HEENT: No sclera icterus. Extraocular movements grossly intact. Moist buccal mucosa. Head is atraumatic, normocephalic. ABDOMEN: Soft. Nondistended. Mild tenderness with palpation left lower quadrant NEUROLOGIC: Alert and oriented. Cranial nerves II through XII grossly intact. ASSESSMENT: 1. Acute diverticulitis with left-sided pelvic abscess and concerns for developing fistula between the sigmoid colon and urinary bladder or vaginal vault. PLAN: -Further recommendations forthcoming per surgeon -Continue antibiotics -Continue IV fluids -Continue pain medication as needed -Continue to monitor -Continue clear liquids -Replace magnesium Physician Automatic Hemmer note has been reviewed by physician. Signing provider agrees with the documented findings, assessment, and plan of care. I have personally seen and examined the patient, reviewed the FIELD TECHNICIAN /PAs history, exam and MDM and agree with the assessment and plan as written. Based on total visit time, I have performed more than 50% of the visit. As above: Patient says her left lower quadrant pain is improved today. White blood cell count remains normal. Low-grade temp. Continue liquid diet for now. Continue IV antibiotics. Anticipate discharge with outpatient CAT scan. Objective - Vital Signs Vital signs: Vital Signs Temp 99.2 F 12/13/21 08:00 Pulse 75 12/13/21 08:00 Resp 14 12/13/21 08:00 BP 127/75 12/13/21 08:00 Pulse Ox 94 L 12/13/21 08:00 Intake & Output 12/12/21 12/13/21 12/13/21 18:59 06:59 18:59 Intake Total 900 Balance 900 Weight 57.153 kg Intake: Intake, IV Titration 600 Amount Sodium Chloride 0.9% 1, 600 000 ml @ 75 mls/hr IV . [id number] [facility] Rx#:[id number] Oral 300 Other: Voiding Method Toilet Toilet # Voids 2 - Labs CBC & Chem 7: 12/13/21 04:21 12/13/21 04:21 Labs: Abnormal Lab Results - Last 24 Hours (Table) 12/12/21 12/12/21 12/13/21 Range/Units 16:39 20:15 02:37 RBC (4.10-5.20) X 10*6/uL Hgb (12.0-15.0) g/dL Hct (37.2-46.3) % MCV (80.0-97.0) fL MCH (27.0-32.0) pg Monocytes # (0.20-1.00) X 10*3/uL Sodium (135-145) mmol/L POC Glucose (mg/dL) 102 H 136 H 110 H (75-99) mg/dL 12/13/21 12/13/21 12/13/21 Range/Units 04:21 04:21 06:22 RBC 3.01 L (4.10-5.20) X 10*6/uL Hgb 10.0 L (12.0-15.0) g/dL Hct 29.5 L (37.2-46.3) % MCV 98.0 H (80.0-97.0) fL MCH 33.2 H (27.0-32.0) pg Monocytes # 1.02 H (0.20-1.00) X 10*3/uL Sodium 133 L (135-145) mmol/L POC Glucose (mg/dL) 100 H (75-99) mg/dL
--- NOTE | 2021-12-13 14:26 | P.PN ---
Subjective Progress Note Date: 12/13/21 H&P Date: 12/12/21 Chief Complaint: Abdominal pain 1 week This is a pleasant 86-year-old female with past medical history of breast CA, status post left mastectomy, moderate aortic stenosis with preserved LV function, moderate tricuspid regurgitation and multiple other medical issues presented to the ER with complaints of ongoing "sharp" bilateral lower abdominal pain, worse on LLQ 1 week, accompanied by bloating/trapped gas, decreased appetite but with no nausea or vomiting. Reports similar presentation about a year ago, following up with PCP in office with med adjustment and symptoms resolved. Denies any rectal bleeding, denies change in bowel or urinary habits. Denies any hematuria or dysuria.CT reporting diverticulitis with left sided pelvic abscess between the mid sigmoid colon and the urinary bladder and possibly left adnexa and left sided vagina vault with surrounding inflammatory changes inseparable of left pelvic sidewall, likely presenting sequela of previous diverticulitis, developing fistula between sigmoid colon and urinary bladder or vagina possible. Afebrile, normal WBC, hemoglobin 12.4, platelets 232, sodium 1:30 bicarb 27, renal function stable, glucose 162, LFTs within normal limits. UA reporting moderate mucus, 16 hyaline cast, small leukocytes, negative nitrates 12/13/2021 maintained on IV fluid hydration, Zosyn, magnesium supplementation when necessary magnesium of 1.5. Sodium improving up to 133. Blood sugars controlled. T-max 99.4, normal WBC. Hemoglobin decreased to 10, platelets decreased to 190. Maintaining O2 sats in the high 90s on room air. Pain controlled with IV Tylenol. Denies chest pain, palpitations or shortness of breath. Objective - Vital Signs Vital signs: Vital Signs Temp 99.2 F 12/13/21 08:00 Pulse 75 12/13/21 08:00 Resp 14 12/13/21 08:00 BP 127/75 12/13/21 08:00 Pulse Ox 94 L 12/13/21 08:00 Intake & Output 12/12/21 12/13/21 12/13/21 18:59 06:59 18:59 Intake Total 900 Balance 900 Weight 57.153 kg Intake: Intake, IV Titration 600 Amount Sodium Chloride 0.9% 1, 600 000 ml @ 75 mls/hr IV . [id number] [facility] Rx#:[id number] Oral 300 Other: Voiding Method Toilet Toilet # Voids 2 - Exam PHYSICAL EXAM: VITAL SIGNS: As above GENERAL: Alert and oriented 3, Sitting up in bed,no acute distress. HEENT: Conjunctivae normal. eyes normal. NECK: No JVD. No thyroid enlargement. No LNs CARDIOVASCULAR: S1, S2 regular. Positive murmur RESPIRATION: Breath sounds diminished in the bases. No rhonchi or crackles. ABDOMEN: Soft, nondistended, bilateral lower quadrant tenderness- greatest on the LLQ, No guarding. Bowel sounds heard. LEGS: No edema. no swelling. NERVOUS SYSTEM: Cranial N 2-12 grossly normal. No focal deficits. Strength and sensation grossly intact. Skin: Warm and dry, no rash - Labs CBC & Chem 7: 12/13/21 04:21 12/13/21 04:21 Labs: Abnormal Lab Results - Last 24 Hours (Table) 12/12/21 12/12/21 12/13/21 Range/Units 16:39 20:15 02:37 RBC (4.10-5.20) X 10*6/uL Hgb (12.0-15.0) g/dL Hct (37.2-46.3) % MCV (80.0-97.0) fL MCH (27.0-32.0) pg Monocytes # (0.20-1.00) X 10*3/uL Sodium (135-145) mmol/L POC Glucose (mg/dL) 102 H 136 H 110 H (75-99) mg/dL 12/13/21 12/13/21 12/13/21 Range/Units 04:21 04:21 06:22 RBC 3.01 L (4.10-5.20) X 10*6/uL Hgb 10.0 L (12.0-15.0) g/dL Hct 29.5 L (37.2-46.3) % MCV 98.0 H (80.0-97.0) fL MCH 33.2 H (27.0-32.0) pg Monocytes # 1.02 H (0.20-1.00) X 10*3/uL Sodium 133 L (135-145) mmol/L POC Glucose (mg/dL) 100 H (75-99) mg/dL 12/13/21 Range/Units 11:36 RBC (4.10-5.20) X 10*6/uL Hgb (12.0-15.0) g/dL Hct (37.2-46.3) % MCV (80.0-97.0) fL MCH (27.0-32.0) pg Monocytes # (0.20-1.00) X 10*3/uL Sodium (135-145) mmol/L POC Glucose (mg/dL) 111 H (75-99) mg/dL Assessment and Plan Assessment: Acute diverticulitis with left-sided pelvic abscess, possible developing fistula reported per CT Hyponatremia Diabetes mellitus Moderate Aortic stenosis, preserved LV function per ADRIANO 03/06/2021 Gastroesophageal reflux disease Hypertension Hyperlipidemia Breast cancer, history of left breast mastectomy Hard of hearing Hypomagnesemia Plan: Continue on current medication regime ,monitoring and symptomatic treatment. Maintain IV fluid hydration, IV antibiotics Zosyn and IV magnesium supplementation. General surgery recommendations pending. The impression and plan of care has been dictated as directed. : I performed a history and examination of this patient, discussed the same with the dictator. I agree with the dictator's note ,documented as a scribe. Any additional findings or plans will be noted.
[2021-12-13 14:32] VITALS: BMI 23.0
[2021-12-13 16:30] LABS: Glucose,Whole Blood 95 mg/dL (75-99)
[2021-12-13 21:01] LABS: Glucose,Whole Blood 123 mg/dL (75-99)
[2021-12-13] MEDS: traZODone HCL 50 MG TAB PO SCH (21:05)
[2021-12-14 05:27] LABS: Glucose,Whole Blood 96 mg/dL (75-99)
[2021-12-14] MEDS: SODIUM CHLORIDE 0.9% 1,000 ML IV SCH ×2 (05:57→17:58)
[2021-12-14 07:06] LABS: Glucose,Whole Blood 106 mg/dL (75-99)
[2021-12-14] MEDS: INSULIN ASPART (NovoLOG) 100 UNIT/ML VIAL SQ SCH ×4 (07:24→22:24)
[2021-12-14] MEDS: METOPROLOL TARTRATE 50 MG TAB PO SCH ×2 (09:34→22:25)
[2021-12-14] MEDS: PIPERACILLIN-TAZOBACTAM 3.375 GM in SODIUM CHLORIDE 0.9% 100 ML IVPB SCH ×2 (09:34→15:52)
[2021-12-14 09:37] LABS: Basophils % (A) 1 %; Eosinophils # (A) 0.1 k/uL (0-0.7); Eosinophils % (A) 1 %; HCT 32.1 % (34.0-46.0); Lymphocytes # (A) 1.3 k/uL (1.0-4.8); Lymphocytes % (A) 15 %; MCH 34.7 pg (25.0-35.0); MCHC 34.1 g/dL (31.0-37.0); MCV 101.7 fL (80.0-100.0); Mean Platelet Volume 7.2; Monocytes # (A) 0.6 k/uL (0-1.0); Monocytes % (A) 6 %; Neutrophils # (A) 6.7 k/uL (1.3-7.7); Neutrophils % (A) 75 %; Platelet Count 206 k/uL (150-450); RBC 3.16 m/uL (3.80-5.40); RDW 12.5 % (11.5-15.5)
[2021-12-14 09:51] LABS: African American GFR (CKD) >90 (>60 ml/min/1.73 sqM); Anion Gap 7 mmol/L; Blood Urea Nitrogen 8 mg/dL (7-17); Calcium 8.5 mg/dL (8.4-10.2); Carbon Dioxide 24 mmol/L (22-30); Chloride 100 mmol/L (98-107); Glucose 99 mg/dL (74-99); Non-African American GFR(CKD) 83 (>60 ml/min/1.73 sqM); Potassium 4.1 mmol/L (3.5-5.1); Sodium 131 mmol/L (137-145)
[2021-12-14] MEDS: PANTOPRAZOLE 40 MG/10 ML VIAL IVP SCH (10:09)
[2021-12-14] MEDS: ACETAMINOPHEN IV (For NPO) 1,000 MG in EMPTY BAG 1 BAG IVPB SCH ×3 (10:51→22:26)
[2021-12-14 11:32] LABS: Glucose,Whole Blood 110 mg/dL (75-99)
--- NOTE | 2021-12-14 12:59 | P.PN ---
Subjective Progress Note Date: 12/14/21 CHIEF COMPLAINT: Abdominal pain HISTORY OF PRESENT ILLNESS: Patient reports that she is not feeling well today. She is complaining of more left lower quadrant pain. She did have a low-grade temp of 100.3. White count remains normal at 9.0. Patient had been without pain medication since initially yesterday morning. Patient initially made nothing by mouth and started back on IV Tylenol. WBC is 9 hemoglobin 11 platelets 206 sodium 131 potassium 4.1 creatinine 0.57 Mg yesterday 1.5 supplement given PHYSICAL EXAM: VITAL SIGNS: Reviewed. GENERAL: Well-developed in no acute distress. HEENT: No sclera icterus. Extraocular movements grossly intact. Moist buccal mucosa. Head is atraumatic, normocephalic. ABDOMEN: Soft. Nondistended. Tenderness to palpation left lower quadrant NEUROLOGIC: Alert and oriented. Cranial nerves II through XII grossly intact. ASSESSMENT: 1. Acute diverticulitis with left-sided pelvic abscess PLAN: -Continue clear liquid diet -Continue to monitor patient closely -Restart IV Tylenol -Continue antibiotics -Continue IV fluids -Continue pain medication as needed Physician Manual Tester note has been reviewed by physician. Signing provider agrees with the documented findings, assessment, and plan of care. I have personally seen and examined the patient, reviewed the DEDICATED DRIVER /PAs history, exam and MDM and agree with the assessment and plan as written. Based on total visit time, I have performed more than 50% of the visit. As above: The patient had some increased discomfort this morning although states she did not have any pain medications since yesterday. Feels better currently. Tolerating clear liquids. White blood cell count is normal. She had a low-grade fever of 100.3. Continue clear liquids for now. Continue broad-spectrum antibiotics. Case was discussed with interventional radiology does not feel that percutaneous drainage is easily feasible at this time. We'll follow. Objective - Vital Signs Vital signs: Vital Signs Temp 98.2 F 12/14/21 07:28 Pulse 72 12/14/21 07:28 Resp 17 12/14/21 07:28 BP 158/67 12/14/21 07:28 Pulse Ox 95 12/14/21 07:28 Intake & Output 12/13/21 12/14/21 12/14/21 18:59 06:59 18:59 Weight 57.153 kg Other: Voiding Method Toilet Toilet Toilet # Voids 1 1 # Bowel Movements 0 - Labs CBC & Chem 7: 12/14/21 08:53 12/14/21 08:53 Labs: Abnormal Lab Results - Last 24 Hours (Table) 12/13/21 12/14/21 12/14/21 Range/Units 20:52 07:04 08:53 RBC 3.16 L (3.80-5.40) m/uL Hgb 11.0 L (11.4-16.0) gm/dL Hct 32.1 L (34.0-46.0) % MCV 101.7 H (80.0-100.0) fL Sodium (137-145) mmol/L POC Glucose (mg/dL) 123 H 106 H (75-99) mg/dL 12/14/21 12/14/21 Range/Units 08:53 11:29 RBC (3.80-5.40) m/uL Hgb (11.4-16.0) gm/dL Hct (34.0-46.0) % MCV (80.0-100.0) fL Sodium 131 L (137-145) mmol/L POC Glucose (mg/dL) 110 H (75-99) mg/dL Microbiology - Last 24 Hours (Table) 12/12/21 11:40 Blood Culture - Preliminary Blood No Growth after 24 hours 12/12/21 11:40 Blood Culture - Preliminary Blood No Growth after 24 hours
--- NOTE | 2021-12-14 13:15 | CDI ---
Documentation Clarification Form Date: 12/14/2021 01:08:04 PM From: Shakira Cerna [facility], CCDS Phone: Admit Date: 12/12/2021 11:05:00 AM Patient Name: Ana Laura Camraa Visit Number: [id number] Discharge Date: ATTENTION: The Clinical Documentation Specialists (CDI) and [facility] Coding Staff appreciate your assistance in clarifying documentation. Please respond to the clarification below the line at the bottom and electronically sign. The CDI & [facility] Coding staff will review the response and follow-up if needed. Please note: Queries are made part of the Legal Health Record. If you have any questions, please contact the author of this message via ITS. Dr. Rudy Mcdonald: The Registered Dietitian Assessment on 12/13 indicates this patient meets criteria for Severe Malnutrition. Based on this information and the findings below, is there an additional diagnosis that is clinically appropriate for this patient? History/Risk Factors per the 12/12 H/P: Left Breast Cancer status post Left Mastectomy, Moderate Aortic Stenosis, Moderate TR, GERD, Hyperlipidemia, Hypertension. Clinical Indicators: Presented to the ED on 12/12 with Abdominal pain xone week. Admit with Diverticulitis with Abscess per CT scan Nutrition Assessment 12/13: Patient reports not feeling hungry for 3-6 months, no appetite/interest in food. Nutrition intake: Fair, consumed 100% clear liquid diet. Oral Supplements: Ensure Clear TID Weight 51.153 kg, Height 5 ft 2 in, BMI: 23.0 Calculated IBW 50 kg, % IBW 114% Weight loss: 8.8 kg Treatment 12/12: Hypoglycemia protocol & Blood Glucose monitoring, Insulin sliding scale, Blood cultures x2, IV Na Cl 1,000 mls @ 999 mls/hr q1H, IV Zosyn 100 mls @ 25 mls/hr q8H, IV PPI 40 mg Daily, IV Tylenol 100 mls @ 400 mls/hr q6H 12/13: Oral supplement added. Is there an additional diagnosis that is clinically appropriate for this patient? [ ] Mild Protein-Calorie Malnutrition [ ] Moderate Protein-Calorie Malnutrition [ ] Severe Protein-Calorie Malnutrition [ x ] Other condition, please specify [ ] Unable to Determine (Template Last Revised: October 2020) known history of self induced anorexia this patient has never been a big eater she each daily small meals and never in her words over eats she's been like this since childhood MTDD
--- NOTE | 2021-12-14 16:03 | P.PN ---
Subjective Progress Note Date: 12/14/21 H&P Date: 12/12/21 Chief Complaint: Abdominal pain 1 week This is a pleasant 86-year-old female with past medical history of breast CA, status post left mastectomy, moderate aortic stenosis with preserved LV function, moderate tricuspid regurgitation and multiple other medical issues presented to the ER with complaints of ongoing "sharp" bilateral lower abdominal pain, worse on LLQ 1 week, accompanied by bloating/trapped gas, decreased appetite but with no nausea or vomiting. Reports similar presentation about a year ago, following up with PCP in office with med adjustment and symptoms resolved. Denies any rectal bleeding, denies change in bowel or urinary habits. Denies any hematuria or dysuria.CT reporting diverticulitis with left sided pelvic abscess between the mid sigmoid colon and the urinary bladder and possibly left adnexa and left sided vagina vault with surrounding inflammatory changes inseparable of left pelvic sidewall, likely presenting sequela of previous diverticulitis, developing fistula between sigmoid colon and urinary bladder or vagina possible. Afebrile, normal WBC, hemoglobin 12.4, platelets 232, sodium 1:30 bicarb 27, renal function stable, glucose 162, LFTs within normal limits. UA reporting moderate mucus, 16 hyaline cast, small leukocytes, negative nitrates 12/13/2021 maintained on IV fluid hydration, Zosyn, magnesium supplementation when necessary magnesium of 1.5. Sodium improving up to 133. Blood sugars controlled. T-max 99.4, normal WBC. Hemoglobin decreased to 10, platelets decreased to 190. Maintaining O2 sats in the high 90s on room air. Pain controlled with IV Tylenol. Denies chest pain, palpitations or shortness of breath. 12/14/2021 receiving IV fluid hydration . Consuming 75%. Positive bowel movement last night.feels worse today, reporting increased left lower quadrant pain, T-max 100.3, WBC normal. IV Tylenol resumed. Preliminary blood cultures reporting no growth after 48 hours. Hemoglobin increased to 11, platelets 207. Sodium 131, renal function stable. Magnesium supplemented yesterday with repeat magnesium level pending. Attending O2 sats in the 90s on room air. Objective - Vital Signs Vital signs: Vital Signs Temp 98 F 12/14/21 14:00 Pulse 61 12/14/21 14:00 Resp 18 12/14/21 14:00 BP 118/67 12/14/21 14:00 Pulse Ox 95 12/14/21 14:00 Intake & Output 12/13/21 12/14/21 12/14/21 18:59 06:59 18:59 Weight 57.153 kg 57.153 kg Other: Voiding Method Toilet Toilet Toilet # Voids 1 1 # Bowel Movements 0 - Exam PHYSICAL EXAM: VITAL SIGNS: As above GENERAL: Alert and oriented 3, Sitting up in bed,no acute distress. HEENT: Conjunctivae normal. eyes normal. NECK: No JVD. No thyroid enlargement. No LNs CARDIOVASCULAR: S1, S2 regular. Positive murmur RESPIRATION: Breath sounds diminished in the bases. No rhonchi or crackles. ABDOMEN: Soft, nondistended, left lower quadrant tenderness, No guarding. Bowel sounds heard. LEGS: No edema. no swelling. NERVOUS SYSTEM: Cranial N 2-12 grossly normal. No focal deficits. Strength and sensation grossly intact. Skin: Warm and dry, no rash - Labs CBC & Chem 7: 12/14/21 08:53 12/14/21 08:53 Labs: Abnormal Lab Results - Last 24 Hours (Table) 12/13/21 12/14/21 12/14/21 Range/Units 20:52 07:04 08:53 RBC 3.16 L (3.80-5.40) m/uL Hgb 11.0 L (11.4-16.0) gm/dL Hct 32.1 L (34.0-46.0) % MCV 101.7 H (80.0-100.0) fL Sodium (137-145) mmol/L POC Glucose (mg/dL) 123 H 106 H (75-99) mg/dL 12/14/21 12/14/21 Range/Units 08:53 11:29 RBC (3.80-5.40) m/uL Hgb (11.4-16.0) gm/dL Hct (34.0-46.0) % MCV (80.0-100.0) fL Sodium 131 L (137-145) mmol/L POC Glucose (mg/dL) 110 H (75-99) mg/dL Microbiology - Last 24 Hours (Table) 12/12/21 11:40 Blood Culture - Preliminary Blood No Growth after 48 hours 12/12/21 11:40 Blood Culture - Preliminary Blood No Growth after 48 hours Assessment and Plan Assessment: Acute diverticulitis with left-sided pelvic abscess, possible developing fistula reported per CT Hyponatremia Diabetes mellitus Moderate Aortic stenosis, preserved LV function per ADRIANO 03/06/2021 Gastroesophageal reflux disease Hypertension Hyperlipidemia Breast cancer, history of left breast mastectomy Hard of hearing Hypomagnesemia Plan: Continue on current medication regime ,monitoring and symptomatic treatment. Continue IV fluid hydration, IV antibiotics Zosyn. Clear liquids as per surgery. Pain management. surgery recommendations pending. The impression and plan of care has been dictated as directed. : I performed a history and examination of this patient, discussed the same with the dictator. I agree with the dictator's note ,documented as a scribe. Any additional findings or plans will be noted.
[2021-12-14 16:46] LABS: Glucose,Whole Blood 100 mg/dL (75-99)
[2021-12-14] MEDS: traZODone HCL 50 MG TAB PO SCH (22:25)
[2021-12-14 22:26] LABS: Glucose,Whole Blood 101 mg/dL (75-99)
[2021-12-15] MEDS: PIPERACILLIN-TAZOBACTAM 3.375 GM in SODIUM CHLORIDE 0.9% 100 ML IVPB SCH ×3 (01:32→15:47)
[2021-12-15] MEDS: ACETAMINOPHEN IV (For NPO) 1,000 MG in EMPTY BAG 1 BAG IVPB SCH (05:21)
[2021-12-15] MEDS: SODIUM CHLORIDE 0.9% 1,000 ML IV SCH (05:23)
[2021-12-15 07:03] LABS: Glucose,Whole Blood 101 mg/dL (75-99)
[2021-12-15] MEDS: INSULIN ASPART (NovoLOG) 100 UNIT/ML VIAL SQ SCH ×4 (07:11→21:11)
[2021-12-15] MEDS: METOPROLOL TARTRATE 50 MG TAB PO SCH ×2 (08:26→21:11)
[2021-12-15] MEDS: PANTOPRAZOLE 40 MG/10 ML VIAL IVP SCH (08:34)
[2021-12-15 12:02] LABS: Glucose,Whole Blood 98 mg/dL (75-99)
--- NOTE | 2021-12-15 12:12 | P.PN ---
Subjective Progress Note Date: 12/15/21 Principal diagnosis: Abdominal pain, left side abdominal abscess probable secondary to diverticulosis diverticulitis Patient well-known to our practice known history of diverticular disease presented with abdominal pain and low-grade fever and elevated white count Objective - Vital Signs Vital signs: Vital Signs Temp 98.4 F 12/15/21 07:26 Pulse 62 12/15/21 07:26 Resp 18 12/15/21 07:26 BP 160/65 12/15/21 07:26 Pulse Ox 96 12/15/21 07:26 Intake & Output 12/14/21 12/15/21 12/15/21 18:59 06:59 18:59 Weight 57.153 kg Other: Voiding Method Toilet # Voids 6 3 - Exam General: [Patient awake, alert and oriented times 3. Patient in no acute distress.] HEENT: [PERRL. EOMI. No pharyngeal erythema or exudate.] Neck: [No adenopathy.] Cardiac: [Heart regular in rate and rhythm. No S3. No S4. No clicks, rubs. No murmur.] Lungs: [Clear to auscultation bilaterally.] Abdomen: [No mass. No organomegaly. Bowel sounds presnt and normoactive in all 4 quadrants. Left-sided lower quadrant abdominal discomfort to deep palpation Extremes: [No edema no cyanosis no claudication normal pulses] : Normal female genitalia Musculoskeletal: [No joint erythema, edema or tenderness.] Skin: [No rash.] Neurologic: [No lateralizing deficits. CN II - XII grossly intact.] Lymphatic: [No adenopathy.] - Labs CBC & Chem 7: 12/14/21 08:53 12/14/21 08:53 Labs: Abnormal Lab Results - Last 24 Hours (Table) 12/14/21 12/14/21 12/15/21 Range/Units 16:44 22:24 04:24 POC Glucose (mg/dL) 100 H 101 H (75-99) mg/dL Magnesium 1.4 L (1.5-2.4) mg/dL 12/15/21 Range/Units 07:02 POC Glucose (mg/dL) 101 H (75-99) mg/dL Magnesium (1.5-2.4) mg/dL Microbiology - Last 24 Hours (Table) 12/12/21 11:40 Blood Culture - Preliminary Blood No Growth after 48 hours 12/12/21 11:40 Blood Culture - Preliminary Blood No Growth after 48 hours Assessment and Plan (1) Anorexia nervosa with significantly low body weight Current Visit: Yes Status: Acute Code(s): F50.00 - ANOREXIA NERVOSA, UNSPECIFIED SNOMED Code(s): 777233009 Plan: IV antibiotics as scheduled Continue IV rehydration /resuscitation When able will encourage aggressive oral intake We'll encourage increase protein intake to encourage and advanced the healing process Time with Patient: Greater than 30
--- NOTE | 2021-12-15 12:40 | P.PN ---
Progress Note - Text Progress Note Date: 12/15/21 Patient feels well. She denies any significant abdominal pain. On exam vital signs are stable. Abdomen soft. Resolving diverticulitis. Patient received IV antibiotic.
[2021-12-15 17:05] LABS: Glucose,Whole Blood 126 mg/dL (75-99)
[2021-12-15 21:05] LABS: Glucose,Whole Blood 97 mg/dL (75-99)
[2021-12-15] MEDS: traZODone HCL 50 MG TAB PO SCH (21:11)
[2021-12-16] MEDS: PIPERACILLIN-TAZOBACTAM 3.375 GM in SODIUM CHLORIDE 0.9% 100 ML IVPB SCH ×4 (00:42→23:35)
[2021-12-16] MEDS: SODIUM CHLORIDE 0.9% 1,000 ML IV SCH ×3 (00:46→23:19)
[2021-12-16 06:48] LABS: Glucose,Whole Blood 101 mg/dL (75-99)
[2021-12-16] MEDS: INSULIN ASPART (NovoLOG) 100 UNIT/ML VIAL SQ SCH ×4 (06:50→21:49)
[2021-12-16] MEDS: METOPROLOL TARTRATE 50 MG TAB PO SCH ×2 (08:57→21:50)
[2021-12-16] MEDS: ACETAMINOPHEN TAB 325 MG TAB PO PRN ×2 (08:57→21:49)
[2021-12-16] MEDS: PANTOPRAZOLE 40 MG/10 ML VIAL IVP SCH (08:57)
--- NOTE | 2021-12-16 10:04 | P.PN ---
Progress Note - Text Progress Note Date: 12/16/21 Patient's resting in her bed. She states she has more pain today. On exam vital signs are stable. Abdomen soft with mild tenderness in the lower abdomen. There is no rebound or guarding. Diverticulitis with intraoral abscess. Patient continued to receive IV antibiotic.
--- NOTE | 2021-12-16 11:11 | P.PN ---
Subjective Progress Note Date: 12/16/21 Principal diagnosis: Abdominal pain, left side abdominal abscess probable secondary to diverticulosis diverticulitis Patient well-known to our practice known history of diverticular disease presented with abdominal pain and low-grade fever and elevated white count Objective - Vital Signs Vital signs: Vital Signs Temp 98.9 F 12/16/21 07:24 Pulse 73 12/16/21 07:24 Resp 18 12/16/21 07:24 BP 192/69 12/16/21 07:24 Pulse Ox 94 L 12/16/21 07:24 Intake & Output 12/15/21 12/16/21 12/16/21 18:59 06:59 18:59 Intake Total 1100 Balance 1100 Intake: Intake, IV Titration 900 Amount Sodium Chloride 0.9% 1, 900 000 ml @ 75 mls/hr IV . [id number] [facility] Rx#:[id number] Oral 200 Other: Voiding Method Toilet Toilet # Voids 1 # Bowel Movements 1 - Exam General: [Patient awake, alert and oriented times 3. Patient in no acute distress.] HEENT: [PERRL. EOMI. No pharyngeal erythema or exudate.] Neck: [No adenopathy.] Cardiac: [Heart regular in rate and rhythm. No S3. No S4. No clicks, rubs. No murmur.] Lungs: [Clear to auscultation bilaterally.] Abdomen: [No mass. No organomegaly. Bowel sounds presnt and normoactive in all 4 quadrants. Left-sided lower quadrant abdominal discomfort to deep palpation Extremes: [No edema no cyanosis no claudication normal pulses] : Normal female genitalia Musculoskeletal: [No joint erythema, edema or tenderness.] Skin: [No rash.] Neurologic: [No lateralizing deficits. CN II - XII grossly intact.] Lymphatic: [No adenopathy.] - Labs CBC & Chem 7: 12/14/21 08:53 12/14/21 08:53 Labs: Abnormal Lab Results - Last 24 Hours (Table) 12/15/21 12/16/21 Range/Units 17:00 06:46 POC Glucose (mg/dL) 126 H 101 H (75-99) mg/dL Microbiology - Last 24 Hours (Table) 12/14/21 12:33 Blood Culture - Preliminary Blood No Growth after 24 hours 12/12/21 11:40 Blood Culture - Preliminary Blood No Growth after 72 hours 12/12/21 11:40 Blood Culture - Preliminary Blood No Growth after 72 hours Assessment and Plan (1) Anorexia nervosa with significantly low body weight Current Visit: Yes Status: Acute Code(s): F50.00 - ANOREXIA NERVOSA, UNSPECIFIED SNOMED Code(s): 201895429 Plan: IV antibiotics as scheduled Continue IV rehydration /resuscitation When able will encourage aggressive oral intake We'll encourage increase protein intake to encourage and advanced the healing process Time with Patient: Greater than 30
[2021-12-16 12:15] LABS: Glucose,Whole Blood 102 mg/dL (75-99)
[2021-12-16 16:56] LABS: Glucose,Whole Blood 128 mg/dL (75-99)
[2021-12-16 20:40] LABS: Glucose,Whole Blood 116 mg/dL (75-99)
[2021-12-16] MEDS: traZODone HCL 50 MG TAB PO SCH (21:50)
[2021-12-17 07:03] LABS: Glucose,Whole Blood 141 mg/dL (75-99)
[2021-12-17] MEDS: METOPROLOL TARTRATE 50 MG TAB PO SCH ×2 (07:20→21:40)
[2021-12-17] MEDS: INSULIN ASPART (NovoLOG) 100 UNIT/ML VIAL SQ SCH ×4 (07:20→21:40)
[2021-12-17] MEDS: PANTOPRAZOLE 40 MG/10 ML VIAL IVP SCH (07:20)
[2021-12-17] MEDS: PIPERACILLIN-TAZOBACTAM 3.375 GM in SODIUM CHLORIDE 0.9% 100 ML IVPB SCH ×3 (07:20→23:54)
[2021-12-17] MEDS: ACETAMINOPHEN TAB 325 MG TAB PO PRN (11:01)
[2021-12-17] MEDS: SODIUM CHLORIDE 0.9% 1,000 ML IV SCH ×2 (11:02→23:56)
[2021-12-17 11:10] LABS: Glucose,Whole Blood 109 mg/dL (75-99)
--- NOTE | 2021-12-17 11:31 | P.PN ---
Subjective Progress Note Date: 12/17/21 CHIEF COMPLAINT: Abdominal pain HISTORY OF PRESENT ILLNESS: Patient does reports pain in the left lower q uadrant. She rates the pain about a 2 out of 10. She reports that her pain is better than it was on Friday. And she describes the pain more of a pressure. She is having bowel movements. Denies any nausea vomiting. Currently on a clear liquid diet. Afebrile. Last WBC 9.0 on 12/14 PHYSICAL EXAM: VITAL SIGNS: Reviewed. GENERAL: Well-developed in no acute distress. HEENT: No sclera icterus. Extraocular movements grossly intact. Moist buccal mucosa. Head is atraumatic, normocephalic. ABDOMEN: Soft. Nondistended. mild Tenderness to palpation left lower quadrant NEUROLOGIC: Alert and oriented. Cranial nerves II through XII grossly intact. ASSESSMENT: 1. Acute diverticulitis with left-sided pelvic abscess PLAN: -Further recommendations forthcoming per surgeon -Continue clear liquid diet -Continue oral Tylenol as needed for pain -Continue antibiotics -Continue IV fluids Physician Tester Wafer Substrate note has been reviewed by physician. Signing provider agrees with the documented findings, assessment, and plan of care. I have personally seen and examined the patient, reviewed the PROBATE PARALEGAL /PAs history, exam and MDM and agree with the assessment and plan as written. Based on total visit time, I have performed more than 50% of the visit. As above: The patient says her pain continues to gradually improved although not much different in the last 24-48 hours. She is afebrile. Feels some swelling left lower quadrant. Patient is tolerating clear liquids and would like more to eat. She is having bowel movements. Will increase diet to full liquids. Will repeat CT abdomen and pelvis tomorrow. Objective - Vital Signs Vital signs: Vital Signs Temp 97.6 F 12/17/21 07:27 Pulse 71 12/17/21 07:27 Resp 17 12/17/21 07:27 BP 162/74 12/17/21 07:27 Pulse Ox 98 12/17/21 07:27 Intake & Output 12/16/21 12/17/21 12/17/21 18:59 06:59 18:59 Other: Voiding Method Toilet Toilet # Voids 3 3 # Bowel Movements 1 - Labs CBC & Chem 7: 12/14/21 08:53 12/14/21 08:53 Labs: Abnormal Lab Results - Last 24 Hours (Table) 12/16/21 12/16/21 12/16/21 Range/Units 12:12 16:53 20:39 POC Glucose (mg/dL) 102 H 128 H 116 H (75-99) mg/dL 12/17/21 12/17/21 Range/Units 07:01 11:09 POC Glucose (mg/dL) 141 H 109 H (75-99) mg/dL Microbiology - Last 24 Hours (Table) 12/14/21 12:33 Blood Culture - Preliminary Blood No Growth after 48 hours 12/12/21 11:40 Blood Culture - Preliminary Blood No Growth after 96 hours 12/12/21 11:40 Blood Culture - Preliminary Blood No Growth after 96 hours
--- NOTE | 2021-12-17 15:04 | P.PN ---
Subjective Progress Note Date: 12/17/21 H&P Date: 12/12/21 Chief Complaint: Abdominal pain 1 week This is a pleasant 86-year-old female with past medical history of breast CA, status post left mastectomy, moderate aortic stenosis with preserved LV function, moderate tricuspid regurgitation and multiple other medical issues presented to the ER with complaints of ongoing "sharp" bilateral lower abdominal pain, worse on LLQ 1 week, accompanied by bloating/trapped gas, decreased appetite but with no nausea or vomiting. Reports similar presentation about a year ago, following up with PCP in office with med adjustment and symptoms resolved. Denies any rectal bleeding, denies change in bowel or urinary habits. Denies any hematuria or dysuria.CT reporting diverticulitis with left sided pelvic abscess between the mid sigmoid colon and the urinary bladder and possibly left adnexa and left sided vagina vault with surrounding inflammatory changes inseparable of left pelvic sidewall, likely presenting sequela of previous diverticulitis, developing fistula between sigmoid colon and urinary bladder or vagina possible. Afebrile, normal WBC, hemoglobin 12.4, platelets 232, sodium 1:30 bicarb 27, renal function stable, glucose 162, LFTs within normal limits. UA reporting moderate mucus, 16 hyaline cast, small leukocytes, negative nitrates 12/13/2021 maintained on IV fluid hydration, Zosyn, magnesium supplementation when necessary magnesium of 1.5. Sodium improving up to 133. Blood sugars controlled. T-max 99.4, normal WBC. Hemoglobin decreased to 10, platelets decreased to 190. Maintaining O2 sats in the high 90s on room air. Pain controlled with IV Tylenol. Denies chest pain, palpitations or shortness of breath. 12/14/2021 receiving IV fluid hydration . Consuming 75%. Positive bowel movement last night.feels worse today, reporting increased left lower quadrant pain, T-max 100.3, WBC normal. IV Tylenol resumed. Preliminary blood cultures reporting no growth after 48 hours. Hemoglobin increased to 11, platelets 207. Sodium 131, renal function stable. Magnesium supplemented yesterday with repeat magnesium level pending. Attending O2 sats in the 90s on room air. 12/17/2021 reports bilateral lower quadrant pressure persists, positive bowel movement, and denies nausea or vomiting.Continues on IV fluids, antibiotics, clear liquids. Afebrile, no labs today. Objective - Vital Signs Vital signs: Vital Signs Temp 97.9 F 12/17/21 14:00 Pulse 67 12/17/21 14:00 Resp 17 12/17/21 14:00 BP 161/74 12/17/21 14:00 Pulse Ox 96 12/17/21 14:00 Intake & Output 12/16/21 12/17/21 12/17/21 18:59 06:59 18:59 Other: Voiding Method Toilet Toilet # Voids 3 3 # Bowel Movements 1 - Exam PHYSICAL EXAM: VITAL SIGNS: As above GENERAL: Alert and oriented 3, Sitting up in bed,no acute distress. HEENT: Conjunctivae normal. eyes normal. NECK: No JVD. No thyroid enlargement. No LNs CARDIOVASCULAR: S1, S2 regular. Positive murmur RESPIRATION: Breath sounds diminished in the bases. ABDOMEN: Soft, nondistended, mild left lower quadrant tenderness, No guarding. Hypoactive Bowel sounds heard. LEGS: No edema. no swelling. NERVOUS SYSTEM: Cranial N 2-12 grossly normal. No focal deficits. Strength and sensation grossly intact. Skin: Warm and dry, no rash - Labs CBC & Chem 7: 12/14/21 08:53 12/14/21 08:53 Labs: Abnormal Lab Results - Last 24 Hours (Table) 12/16/21 12/16/21 12/17/21 Range/Units 16:53 20:39 07:01 POC Glucose (mg/dL) 128 H 116 H 141 H (75-99) mg/dL 12/17/21 Range/Units 11:09 POC Glucose (mg/dL) 109 H (75-99) mg/dL Microbiology - Last 24 Hours (Table) 12/14/21 12:33 Blood Culture - Preliminary Blood No Growth after 72 hours 12/12/21 11:40 Blood Culture - Preliminary Blood No Growth after 120 hours 12/12/21 11:40 Blood Culture - Preliminary Blood No Growth after 120 hours Assessment and Plan Assessment: Acute diverticulitis with left-sided pelvic abscess, possible developing fistula reported per CT Hyponatremia Diabetes mellitus Moderate Aortic stenosis, preserved LV function per ADRIANO 03/06/2021 Gastroesophageal reflux disease Hypertension Hyperlipidemia Breast cancer, history of left breast mastectomy Hard of hearing Hypomagnesemia Anorexia nervosa, BMI 23 Plan: Continue on current medication regime ,monitoring and symptomatic treatment. Continue IV fluid hydration, IV antibiotics Zosyn. Further surgery recommendations pending. Repeat BMP and magnesium in a.m.. The impression and plan of care has been dictated as directed. : I performed a history and examination of this patient, discussed the same with the dictator. I agree with the dictator's note ,documented as a scribe. Any additional findings or plans will be noted.
[2021-12-17] MEDS: LOSARTAN 50 MG TAB PO SCH (15:44)
[2021-12-17 16:31] LABS: Glucose,Whole Blood 106 mg/dL (75-99)
[2021-12-17 20:06] LABS: Glucose,Whole Blood 218 mg/dL (75-99)
[2021-12-17] MEDS: traZODone HCL 50 MG TAB PO SCH (21:40)
[2021-12-18] MEDS: ACETAMINOPHEN TAB 325 MG TAB PO PRN (06:01)
[2021-12-18 06:47] LABS: Glucose,Whole Blood 223 mg/dL (75-99)
[2021-12-18] MEDS: PANTOPRAZOLE 40 MG/10 ML VIAL IVP SCH (07:38)
[2021-12-18] MEDS: LOSARTAN 50 MG TAB PO SCH (07:39)
[2021-12-18] MEDS: PIPERACILLIN-TAZOBACTAM 3.375 GM in SODIUM CHLORIDE 0.9% 100 ML IVPB SCH (07:39)
[2021-12-18] MEDS: INSULIN ASPART (NovoLOG) 100 UNIT/ML VIAL SQ SCH ×2 (07:39→11:53)
[2021-12-18] MEDS: METOPROLOL TARTRATE 50 MG TAB PO SCH (07:39)
[2021-12-18 07:47] VITALS: BP 173/72; PULSE 67; RESP 18; TEMP 98.6
[2021-12-18] MEDS: IOPAMIDOL CONTRAST (ORAL USE) VIAL PO PRN ×2 (08:31→09:25)
[2021-12-18] MEDS ORDERED: LETROZOLE 2.5 MG TAB PO SCH (09:00)
[2021-12-18 09:22] LABS: HCT 30.4 % (37.2-46.3); HGB 10.6 g/dL (12.0-15.0); MCHC 34.9 g/dL (32.0-37.0); MCV 97.4 fL (80.0-97.0); Mean Platelet Volume 9.6 fL (9.5-12.2); NRBC Per 100 WBC 0 /100 WBCS (0.0-0.0); Platelet Count 217 X 10*3/uL (140-440); RBC 3.12 X 10*6/uL (4.10-5.20); RDW 12.3 % (11.5-14.5); WBC 9.43 X 10*3/uL (4.50-10.00)
[2021-12-18 09:38] LABS: African American GFR (CKD) 95.4 (60.0-200.0); BUN/Creat Ratio 5.15 Ratio (12.00-20.00); Calcium 8.7 mg/dL (8.7-10.3); Carbon Dioxide 22.6 mmol/L (20.0-27.5); Magnesium 1.3 mg/dL (1.5-2.4); Non-African American GFR(CKD) 82.3 (60.0-200.0); Potassium 3.7 mmol/L (3.5-5.5)
--- NOTE | 2021-12-18 11:17 | CT ---
EXAMINATION TYPE: CT abdomen pelvis w con DATE OF EXAM: 12/18/2021 COMPARISON: 12/12/2021 INDICATION: Diverticulitis with abscess DLP: 784.6 mGycm, Automated exposure control for dose reduction was used. CONTRAST: 100 mL of Isovue 300. Study performed with Oral Contrast TECHNIQUE: Axial images were obtained from above the diaphragm to the pubic rami in the axial plane a t 5 mm thick sections. Reconstructed images are reviewed on the computer in the coronal plane. FINDINGS: Limited CT sections are obtained the lung bases. Very minimal pleural effusions are present. Small h iatal hernia is present. CT ABDOMEN: Liver: Normal Spleen: Normal Pancreas: Normal Adrenal glands: There is a 1.4 similar hypodensity within the left adrenal gland. There is mild diffu se thickening through the right adrenal gland which appears to be low density measuring up to 1.5 cm. Gallbladder: Surgically absent Kidneys: No masses are evident. No hydronephrosis is present. There appears to be some hydroureter gr eater on the right. This extends to the mid pelvis. No etiology for obstruction is identified. No cy sts are present. Delayed images were obtained through the kidneys, which remain unremarkable. Aorta: Vascular calcification is within the aorta. Inferior vena cava: Normal. CT PELVIS: There is diffuse thickening through the mid sigmoid colon. There are adjacent hypodensity with thick wall may be abscess formation inferior to the sigmoid colon measuring 3.7 x 2.3 cm. This appears stab le from comparison. Oral contrast extends to the rectum. No contrast is within the perisigmoid absces s. There are loops of bowel which are incompletely distended or lack oral contrast limiting their sarah luation. Appendix: Normal as visualized. Urinary bladder: Urinary bladder wall thickening adjacent to the abscess formation is evident. Genitourinary structures: Uterus and ovaries are not identified. Osseous structures: No suspicious lytic or sclerotic lesions are evident. IMPRESSIONS: 1. Persistent abscess inferior to the mid sigmoid colon unchanged from comparison. Diffuse mid sigmo id colon wall thickening remains present.
[2021-12-18 11:35] LABS: Glucose,Whole Blood 90 mg/dL (75-99)
--- NOTE | 2021-12-18 12:34 | P.PN ---
Subjective Progress Note Date: 12/18/21 CHIEF COMPLAINT: Abdominal pain HISTORY OF PRESENT ILLNESS: Patient reports that she is feeling better today. She tolerated the full liquid diet. She reports that the pain and pressure that she had in the left lower quadrant has resolved. She denies any nausea or vomiting. She is currently afebrile. She did have a low-grade temp last night 99.1. WBC 9.43. Computed tomography scan showed persistent abscess inferior to the mid sigmoid colon unchanged from comparison. Diffuse mid sigmoid colon wall thickening remains present. PHYSICAL EXAM: VITAL SIGNS: Reviewed. GENERAL: Well-developed in no acute distress. HEENT: No sclera icterus. Extraocular movements grossly intact. Moist buccal mucosa. Head is atraumatic, normocephalic. ABDOMEN: Soft. Nondistended. Nontender NEUROLOGIC: Alert and oriented. Cranial nerves II through XII grossly intact. ASSESSMENT: 1. Acute diverticulitis with left-sided pelvic abscess PLAN: -Patient can be discharged from surgical standpoint -Recommend 2 weeks of Augmentin -Repeat computed tomography scan of pelvis in 2 weeks Physician Marine Pipe Welder note has been reviewed by physician. Signing provider agrees with the documented findings, assessment, and plan of care. I have personally seen and examined the patient, reviewed the LASER CUTTER /PAs history, exam and MDM and agree with the assessment and plan as written. Based on total visit time, I have performed more than 50% of the visit. As above: Patient says her pain is absent. Repeat CAT scan shows slight improvement in the appearance of the abscess and adjacent inflammation. Agree with plans for discharge given the patient's lack of symptoms. Follow-up 2 weeks. We'll repeat CAT scan 2 weeks. Objective - Vital Signs Vital signs: Vital Signs Temp 98.6 F 12/18/21 07:46 Pulse 67 12/18/21 07:46 Resp 18 12/18/21 07:46 BP 173/72 12/18/21 07:46 Pulse Ox 95 12/18/21 07:46 Intake & Output 12/17/21 12/18/21 12/18/21 18:59 06:59 18:59 Weight 57.153 kg Other: Voiding Method Toilet Toilet Toilet # Voids 4 1 - Labs CBC & Chem 7: 12/18/21 05:41 12/18/21 05:41 Labs: Abnormal Lab Results - Last 24 Hours (Table) 12/17/21 12/17/21 12/18/21 Range/Units 16:29 20:04 05:41 RBC (4.10-5.20) X 10*6/uL Hgb (12.0-15.0) g/dL Hct (37.2-46.3) % MCV (80.0-97.0) fL MCH (27.0-32.0) pg BUN 3.0 L (9.0-27.0) mg/dL BUN/Creatinine Ratio 5.15 L (12.00-20.00) Ratio POC Glucose (mg/dL) 106 H 218 H (75-99) mg/dL Magnesium 1.3 L (1.5-2.4) mg/dL 12/18/21 12/18/21 Range/Units 05:41 06:45 RBC 3.12 L (4.10-5.20) X 10*6/uL Hgb 10.6 L (12.0-15.0) g/dL Hct 30.4 L (37.2-46.3) % MCV 97.4 H (80.0-97.0) fL MCH 34.0 H (27.0-32.0) pg BUN (9.0-27.0) mg/dL BUN/Creatinine Ratio (12.00-20.00) Ratio POC Glucose (mg/dL) 223 H (75-99) mg/dL Magnesium (1.5-2.4) mg/dL Microbiology - Last 24 Hours (Table) 12/14/21 12:33 Blood Culture - Preliminary Blood No Growth after 72 hours 12/12/21 11:40 Blood Culture - Preliminary Blood No Growth after 120 hours 12/12/21 11:40 Blood Culture - Preliminary Blood No Growth after 120 hours
[2021-12-18] MEDS ORDERED: Magnesium Replacement Protocol 1 EACH MISC MISCELLANE PRN (14:24)
--- NOTE | 2021-12-18 14:32 | P.DS ---
Providers Date of admission: 12/12/21 11:05 Expected date of discharge: 12/18/21 Attending physician: Rudy Mcdonald Consults: 12/12/21 11:23 Consult Physician Urgent Consulting Provider: Rock Ramirez Consult Reason/Comments: Diverticulitis with abscess Do you want consulting provider notified?: Yes Primary care physician: Nuno Maynard Hospital Course: Final Diagnoses: Acute diverticulitis with left-sided pelvic abscess Hyponatremia, resolved Diabetes mellitus, most recent A1c 5.8. Moderate Aortic stenosis, preserved LV function per ADRIANO 03/06/2021 Gastroesophageal reflux disease Hypertension Hyperlipidemia Breast cancer, history of left breast mastectomy Hard of hearing Hypomagnesemia Anorexia nervosa, BMI 23 Hospital course:This is a pleasant 86-year-old female with past medical history of breast CA, status post left mastectomy, moderate aortic stenosis with preserved LV function, moderate tricuspid regurgitation and multiple other medical issues presented to the ER with complaints of ongoing "sharp" bilateral lower abdominal pain, worse on LLQ 1 week, accompanied by bloating/trapped gas, decreased appetite but with no nausea or vomiting. Reports similar presentation about a year ago, following up with PCP in office with med adjustment and symptoms resolved. Denies any rectal bleeding, denies change in bowel or urinary habits. Denies any hematuria or dysuria.CT reporting diverticulitis with left sided pelvic abscess between the mid sigmoid colon and the urinary bladder and possibly left adnexa and left sided vagina vault with surrounding inflammatory changes inseparable of left pelvic sidewall, likely presenting sequela of previous diverticulitis, developing fistula between sigmoid colon and urinary bladder or vagina possible. Afebrile, normal WBC, hemoglobin 12.4, platelets 232, sodium 1:30 bicarb 27, renal function stable, glucose 162, LFTs within normal limits. UA reporting moderate mucus, 16 hyaline cast, small leukocytes, negative nitrates 12/13/2021 maintained on IV fluid hydration, Zosyn, magnesium supplementation when necessary magnesium of 1.5. Sodium improving up to 133. Blood sugars controlled. T-max 99.4, normal WBC. Hemoglobin decreased to 10, platelets decreased to 190. Maintaining O2 sats in the high 90s on room air. Pain controlled with IV Tylenol. Denies chest pain, palpitations or shortness of breath. 12/14/2021 receiving IV fluid hydration . Consuming 75%. Positive bowel movement last night.feels worse today, reporting increased left lower quadrant pain, T-max 100.3, WBC normal. IV Tylenol resumed. Preliminary blood cultures reporting no growth after 48 hours. Hemoglobin increased to 11, platelets 207. Sodium 131, renal function stable. Magnesium supplemented yesterday with repeat magnesium level pending. Attending O2 sats in the 90s on room air. 12/17/2021 reports bilateral lower quadrant pressure persists, positive bowel movement, and denies nausea or vomiting.Continues on IV fluids, antibiotics, clear liquids. Afebrile, no labs today. Significant clinical improvement .T-max 99.1, WBC WNL. Repeat CT reviewed by surgery reporting persistent abscess inferior to the mid sigmoid colon unchanged from comparison, diffuse mid sigmoid colon wall Thickening remains present. Patient has been cleared for discharge by surgery, recommending low fiber diet, 2 weeks of Augmentin with a CT of pelvis to be repeated in 2 weeks. Patient will be discharged home today in a stable condition with guarded prognosis pending patient tolerates low fiber diet and magnesium supplemented per replacement protocol ordered (1.3). The impression and plan of care has been dictated as directed. : I performed a history and examination of this patient, discussed the same with the dictator. I agree with the dictator's note ,documented as a scribe. Any additional findings or plans will be noted. Patient Condition at Discharge: Stable Plan - Discharge Summary Discharge Rx Participant: No New Discharge Prescriptions: New Amoxicillin/Potassium Clav [Augmentin 875-125 Tablet] 1 tab PO Q12HR 14 Days #28 tab Continue Meloxicam [Mobic] 7.5 mg PO DAILY Calcium Carbonate/Vitamin D3 [Calcium 600-Vit D3 400 Tablet] 1 tab PO DAILY traZODone HCL 25 mg PO HS Multivit-Min/FA/Lycopen/Lutein [Centrum Silver Tablet] 1 tab PO DAILY Cyclobenzaprine [Flexeril] 10 mg PO HS PRN PRN Reason: MUSCLE SPASMS Losartan/Hydrochlorothiazide [Losartan-Hctz 50-12.5 mg Tab] 1 tab PO DAILY Letrozole 2.5 mg PO DAILY Atorvastatin [Lipitor] 40 mg PO DAILY Metoprolol Tartrate [Lopressor] 50 mg PO BID Omeprazole [PriLOSEC] 40 mg PO DAILY Discontinued metFORMIN HCL ER [Glucophage XR] 500 mg PO DAILY Discharge Medication List Meloxicam [Mobic] 7.5 mg PO DAILY 12/28/13 [History] Calcium Carbonate/Vitamin D3 [Calcium 600-Vit D3 400 Tablet] 1 tab PO DAILY 10/04/14 [History] Atorvastatin [Lipitor] 40 mg PO DAILY 03/14/19 [History] Cyclobenzaprine [Flexeril] 10 mg PO HS PRN 03/14/19 [History] Letrozole 2.5 mg PO DAILY 03/14/19 [History] Losartan/Hydrochlorothiazide [Losartan-Hctz 50-12.5 mg Tab] 1 tab PO DAILY 03/14/19 [History] Multivit-Min/FA/Lycopen/Lutein [Centrum Silver Tablet] 1 tab PO DAILY 03/14/19 [History] traZODone HCL 25 mg PO HS 03/14/19 [History] Metoprolol Tartrate [Lopressor] 50 mg PO BID 02/12/21 [History] Omeprazole [PriLOSEC] 40 mg PO DAILY 12/12/21 [History] Amoxicillin/Potassium Clav [Augmentin 875-125 Tablet] 1 tab PO Q12HR 14 Days #28 tab 12/18/21 [Rx] Follow up Appointment(s)/Referral(s): Rock Ramirez MD [Medical Doctor] - 2 Weeks (office is not available at time of discharge.. Please call to schedule appointment ) Nuno Maynard MD [Primary Care Provider] - 12/21/21 1:30 pm Patient Instructions/Handouts: Diverticulitis (DC), Low Fiber Diet (DC), Diverticulitis Diet (DC) Activity/Diet/Wound Care/Special Instructions: Diet: low fiber supplement Magnesium prior to dc.
== END 2021-12-18 14:42 | disposition home or self-care (01) | DRG 391 ==
LOC: EC 08:40 → 4SSUR 11:05
PROVIDERS: ADMIT Family Medicine; ATTEND Family Medicine
DX: K57.20 Diverticulitis of large intestine with perforation and abscess without bleeding (principal); K65.1 Peritoneal abscess; F50.00 Anorexia nervosa, unspecified; E87.1 Hypo-osmolality and hyponatremia; N32.1 Vesicointestinal fistula; H91.90 Unspecified hearing loss, unspecified ear; I08.2 Rheumatic disorders of both aortic and tricuspid valves; I10 Essential (primary) hypertension; E11.9 Type 2 diabetes mellitus without complications; E78.5 Hyperlipidemia, unspecified; E83.42 Hypomagnesemia; M54.50 Low back pain, unspecified; Z79.1 Long term (current) use of non-steroidal anti-inflammatories (NSAID); Z79.811 Long term (current) use of aromatase inhibitors; Z79.84 Long term (current) use of oral hypoglycemic drugs; Z79.899 Other long term (current) drug therapy; Z85.3 Personal history of malignant neoplasm of breast; Z90.12 Acquired absence of left breast and nipple; Z90.710 Acquired absence of both cervix and uterus; Z28.311 Partially vaccinated for COVID-19; Z98.51 Tubal ligation status; Z98.890 Other specified postprocedural states; Z98.42 Cataract extraction status, left eye; Z98.41 Cataract extraction status, right eye; Z68.23 Body mass index [BMI] 23.0-23.9, adult
CPT/HCPCS: 36415; 74177; 80048; 80053; 81001; 82150; 83036; 83605; 83690; 83735; 85025; 85027; 87040; 99285

== ENCOUNTER → 2022-01-04 | Outpatient (CLI) | payer MEDICARE, BC ==
[2022-01-04 12:28] LABS: African American GFR (CKD) >90 (>60 ml/min/1.73 sqM); Blood Urea Nitrogen 16 mg/dL (7-17); Non-African American GFR(CKD) 80 (>60 ml/min/1.73 sqM)
--- NOTE | 2022-01-04 13:31 | CT ---
EXAMINATION TYPE: CT pelvis w con DATE OF EXAM: 01/04/2022 COMPARISON: CT abdomen and pelvis December 18, 2021 HISTORY: diverticulitis CT DLP: 1140 mGycm Automated exposure control for dose reduction was used. CONTRAST: Performed with IV Contrast, patient injected with 70cc mL of Isovue 300. FINDINGS: Oral contrast reaches the proximal sigmoid colon level. No suspicious small or large bowel dilatation . Diverticula in the sigmoid colon without significant surrounding fat stranding on current exam. Sma ll residual thick walled fluid collection with air-fluid level measuring approximately 2.6 x 2.3 cm b ut the central fluid component measures roughly 1.0 x 1.0 cm on axial image 33 in the left pelvis. No rmal contrast-filled appendix incidentally seen. No free air. Uterus is surgically absent. Persistent small umbilical hernia containing fat and fluid. Moderate to severe disc space narrowing and vacuum disc phenomenon at L4-L5 and L5-S1 levels. Persistent moderate to severe joint space loss and spurring of both hips. Facet arthropathy lower lumbar levels. IMPRESSION: Continued improvement in the pericolonic abscess left pelvis now smaller in size and with significant thicker wall as detailed above.
== END | disposition home or self-care (01) ==
LOC: RADCTMAIN 10:28
PROVIDERS: ATTEND Surgery
DX: K63.0 Abscess of intestine (principal); K57.30 Diverticulosis of large intestine without perforation or abscess without bleeding; K42.9 Umbilical hernia without obstruction or gangrene
CPT/HCPCS: 82565; 84520; 72193; 36415; Q9967

== ENCOUNTER 2022-01-15 07:03 | Emergency (ER) | payer MEDICARE, BC ==
[2022-01-15 07:08] VITALS: TEMP 97.5
[2022-01-15] MEDS ORDERED: KETOROLAC 15 MG/ML 1 ML VIAL IVP STA (07:33)
[2022-01-15] MEDS ORDERED: ONDANSETRON 4 MG/2 ML VIAL IVP STA (07:33)
[2022-01-15] MEDS ORDERED: HYDROmorphone 0.5 MG/0.5 ML SYRINGE IVP STA (07:33)
[2022-01-15] MEDS ORDERED: SODIUM CHLORIDE 0.9% 500 ML 500 ML IV STA (07:33)
[2022-01-15] MEDS ORDERED: hydrALAZINE HCL 20 MG/ML 1 ML VIAL IVP STA (07:35)
--- NOTE | 2022-01-15 07:48 | ED ---
Back Pain [facility] - General Chief Complaint: Back Pain/Injury Stated Complaint: Back pain Time Seen by Provider: 01/15/22 07:18 Source: patient, family, RN notes reviewed Mode of arrival: ambulatory Limitations: no limitations - History of Present Illness Initial Comments: This is an 86-year-old female presents emergency Department chief complaint of low back pain. Patient states that she does have history of chronic back pain no she's had ablations in the past. Patient states that her last nerve ablation was last year patient states she seen at the pain clinic for this. Patient does admit that she takes meloxicam and Flexeril occasionally for her back pain. She denies any bowel, bladder incontinence or retention or saddle anesthesias. Patient states the pain is in her left side of her low back. She states has been increasing bothersome since Friday she does not that she was hospitalized several weeks ago for diverticulitis. She states her abdomen is painful at this time she has noticed some urinary frequency and dysuria - Related Data Home Medications Medication Instructions Recorded Confirmed Meloxicam [Mobic] 7.5 mg PO DAILY 12/28/13 12/12/21 Calcium Carbonate/Vitamin D3 1 tab PO DAILY 10/04/14 12/12/21 [Calcium 600-Vit D3 400 Tablet] Atorvastatin [Lipitor] 40 mg PO DAILY 03/14/19 12/12/21 Cyclobenzaprine [Flexeril] 10 mg PO HS PRN 03/14/19 12/12/21 Letrozole 2.5 mg PO DAILY 03/14/19 12/12/21 Losartan/Hydrochlorothiazide 1 tab PO DAILY 03/14/19 12/12/21 [Losartan-Hctz 50-12.5 mg Tab] Multivit-Min/FA/Lycopen/Lutein 1 tab PO DAILY 03/14/19 12/12/21 [Centrum Silver Tablet] traZODone HCL 25 mg PO HS 03/14/19 12/12/21 Metoprolol Tartrate [Lopressor] 50 mg PO BID 02/12/21 12/12/21 Omeprazole [PriLOSEC] 40 mg PO DAILY 12/12/21 12/12/21 Previous Rx's Medication Instructions Recorded Amoxicillin/Potassium Clav 1 tab PO Q12HR 14 Days #28 tab 12/18/21 [Augmentin 875-125 Tablet] Cephalexin [Keflex] 500 mg PO Q8HR #21 cap 01/15/22 HYDROcodone/APAP 5-325MG [[place] 5] 1 each PO Q6HR PRN #12 tab 01/15/22 Allergies Allergy/AdvReac Type Severity Reaction Status Date / Time No Known Allergies Allergy Verified 01/15/22 07:08 Review of Systems ROS Statement: Those systems with pertinent positive or pertinent negative responses have been documented in the HPI. ROS Other: All systems not noted in ROS Statement are negative. Past Medical History Past Medical History: Cancer, GERD/Reflux, Hearing Disorder / Deafness, Hyperlipidemia, Hypertension Additional Past Medical History / Comment(s): HEART MURMUR, LOWER BACK PAIN, HX BREAST CA. SEE DR XIE'S HISTORY AND PHYSICAL FOR CARDIAC HISTORY History of Any Multi-Drug Resistant Organisms: None Reported Past Surgical History: Back Surgery, Breast Surgery, Hysterectomy, Tubal Ligation Additional Past Surgical History / Comment(s): LT LUMPECTOMY. PAIN PROC., EXC EBONY CATARACTS. , left breast mastectomy, COLONOSCOPY Past Anesthesia/Blood Transfusion Reactions: No Reported Reaction Past Psychological History: No Psychological Hx Reported Smoking Status: Never smoker Past Alcohol Use History: None Reported Past Drug Use History: None Reported - Past Family History Father Family Medical History: No Reported History Additional Family Medical History / Comment(s): Father is healthy Mother Family Medical History: No Reported History Additional Family Medical History / Comment(s): Mother had bowel surgery and pt cannot recall reason but knows it was not cancer. General Exam Limitations: no limitations General appearance: alert, in no apparent distress Head exam: Present: atraumatic, normocephalic, normal inspection Eye exam: Present: normal appearance, PERRL, EOMI. Absent: scleral icterus, conjunctival injection, periorbital swelling Respiratory exam: Present: normal lung sounds bilaterally. Absent: respiratory distress, wheezes, rales, rhonchi, stridor Cardiovascular Exam: Present: regular rate, normal rhythm, normal heart sounds. Absent: systolic murmur, diastolic murmur, rubs, gallop, clicks GI/Abdominal exam: Present: soft, normal bowel sounds. Absent: distended, tenderness, guarding, rebound, rigid Extremities exam: Present: other (Lower extremity strength equal bilaterally, neurovascular intact equal warmth) Back exam: Present: normal inspection, full ROM, tenderness, muscle spasm, par aspinal tenderness. Absent: CVA tenderness (R), CVA tenderness (L), vertebral tenderness Neurological exam: Present: alert, oriented X3, CN II-XII intact, reflexes normal. Absent: motor sensory deficit Course Vital Signs 01/15/22 01/15/22 07:05 08:05 Temperature 97.5 F L Pulse Rate 62 Respiratory 18 20 Rate Blood Pressure 224/129 175/70 O2 Sat by Pulse 97 Oximetry Medical Decision Making - Medical Decision Making 86-year-old female presented for left flank pain, low back pain. Patient does have a benign musculoskeletal back pain. Patient does have evidence urinary tract infection. Patient was given Rocephin and discharged on oral antibiotics with close follow-up. Return parameters were discussed. - Lab Data Result diagrams: 01/15/22 07:52 01/15/22 07:52 Lab Results 01/15/22 01/15/22 01/15/22 Range/Units 07:52 07:52 07:52 WBC 11.5 H (3.8-10.6) k/uL RBC 3.77 L (3.80-5.40) m/uL Hgb 12.8 (11.4-16.0) gm/dL Hct 38.4 (34.0-46.0) % MCV 101.8 H (80.0-100.0) fL MCH 33.9 (25.0-35.0) pg MCHC 33.3 (31.0-37.0) g/dL RDW 13.7 (11.5-15.5) % Plt Count 188 (150-450) k/uL MPV 7.2 Neutrophils % 80 % Lymphocytes % 11 % Monocytes % 5 % Eosinophils % 2 % Basophils % 1 % Neutrophils # 9.1 H (1.3-7.7) k/uL Lymphocytes # 1.2 (1.0-4.8) k/uL Monocytes # 0.6 (0-1.0) k/uL Eosinophils # 0.3 (0-0.7) k/uL Basophils # 0.1 (0-0.2) k/uL Macrocytosis Slight Sodium 131 L (137-145) mmol/L Potassium 4.3 (3.5-5.1) mmol/L Chloride 93 L (98-107) mmol/L Carbon Dioxide 28 (22-30) mmol/L Anion Gap 10 mmol/L BUN 13 (7-17) mg/dL Creatinine 0.78 (0.52-1.04) mg/dL Est GFR (CKD-EPI)AfAm 79 (>60 ml/min/1.73 sqM) Est GFR (CKD-EPI)NonAf 68 (>60 ml/min/1.73 sqM) Glucose 116 H (74-99) mg/dL Plasma Lactic Acid James (0.7-2.0) mmol/L Calcium 9.5 (8.4-10.2) mg/dL Total Bilirubin 0.8 (0.2-1.3) mg/dL AST 31 (14-36) U/L ALT 23 (4-34) U/L Alkaline Phosphatase 85 (38-126) U/L Total Protein 7.3 (6.3-8.2) g/dL Albumin 4.4 (3.5-5.0) g/dL Amylase 45 (30-110) U/L Lipase 121 (23-300) U/L Urine Color Yellow Urine Appearance Turbid H (Clear) Urine pH 5.5 (5.0-8.0) Ur Specific [place] 1.019 (1.001-1.035) Urine Protein 2+ H (Negative) Urine Glucose (UA) Negative (Negative) Urine Ketones Negative (Negative) Urine Blood Large H (Negative) Urine Nitrite Negative (Negative) Urine Bilirubin Negative (Negative) Urine Urobilinogen <2.0 (<2.0) mg/dL Ur Leukocyte Esterase Large H (Negative) Urine RBC 170 H (0-5) /hpf Urine WBC >182 H (0-5) /hpf Urine WBC Clumps Many H (None) /hpf Urine Bacteria Many H (None) /hpf Urine Mucus Moderate H (None) /hpf 01/15/22 Range/Units 07:52 WBC (3.8-10.6) k/uL RBC (3.80-5.40) m/uL Hgb (11.4-16.0) gm/dL Hct (34.0-46.0) % MCV (80.0-100.0) fL MCH (25.0-35.0) pg MCHC (31.0-37.0) g/dL RDW (11.5-15.5) % Plt Count (150-450) k/uL MPV Neutrophils % % Lymphocytes % % Monocytes % % Eosinophils % % Basophils % % Neutrophils # (1.3-7.7) k/uL Lymphocytes # (1.0-4.8) k/uL Monocytes # (0-1.0) k/uL Eosinophils # (0-0.7) k/uL Basophils # (0-0.2) k/uL Macrocytosis Sodium (137-145) mmol/L Potassium (3.5-5.1) mmol/L Chloride (98-107) mmol/L Carbon Dioxide (22-30) mmol/L Anion Gap mmol/L BUN (7-17) mg/dL Creatinine (0.52-1.04) mg/dL Est GFR (CKD-EPI)AfAm (>60 ml/min/1.73 sqM) Est GFR (CKD-EPI)NonAf (>60 ml/min/1.73 sqM) Glucose (74-99) mg/dL Plasma Lactic Acid James 0.9 (0.7-2.0) mmol/L Calcium (8.4-10.2) mg/dL Total Bilirubin (0.2-1.3) mg/dL AST (14-36) U/L ALT (4-34) U/L Alkaline Phosphatase (38-126) U/L Total Protein (6.3-8.2) g/dL Albumin (3.5-5.0) g/dL Amylase (30-110) U/L Lipase (23-300) U/L Urine Color Urine Appearance (Clear) Urine pH (5.0-8.0) Ur Specific [place] (1.001-1.035) Urine Protein (Negative) Urine Glucose (UA) (Negative) Urine Ketones (Negative) Urine Blood (Negative) Urine Nitrite (Negative) Urine Bilirubin (Negative) Urine Urobilinogen (<2.0) mg/dL Ur Leukocyte Esterase (Negative) Urine RBC (0-5) /hpf Urine WBC (0-5) /hpf Urine WBC Clumps (None) /hpf Urine Bacteria (None) /hpf Urine Mucus (None) /hpf Disposition Clinical Impression: Urinary tract infection, Back pain Disposition: HOME SELF-CARE Condition: Stable Instructions (If sedation given, give patient instructions): Urinary Tract Infection in Women (ED), Back Pain (ED) Additional Instructions: Please return to the Emergency Department if symptoms worsen or any other concerns. Prescriptions: Cephalexin [Keflex] 500 mg PO Q8HR #21 cap HYDROcodone/APAP 5-325MG [[place] 5] 1 each PO Q6HR PRN #12 tab PRN Reason: Pain Is patient prescribed a controlled substance at d/c from ED?: Yes When asked, does pt state using other controlled substances?: No If prescribed controlled substance>3 days was MAPS reviewed?: Prescribed <3 Days If opioid is for acute pain is fill amount 7 days or less?: Yes If Rx opioid, was Start Talking consent form obtained?: Yes Referrals: Nuno Maynard MD [Primary Care Provider] - 1-2 days Time of Disposition: 08:35
[2022-01-15 08:06] LABS: Basophils # (A) 0.1 k/uL (0-0.2); Basophils % (A) 1 %; Eosinophils # (A) 0.3 k/uL (0-0.7); Eosinophils % (A) 2 %; HCT 38.4 % (34.0-46.0); HGB 12.8 gm/dL (11.4-16.0); Lymphocytes # (A) 1.2 k/uL (1.0-4.8); Lymphocytes % (A) 11 %; MCH 33.9 pg (25.0-35.0); MCHC 33.3 g/dL (31.0-37.0); MCV 101.8 fL (80.0-100.0); Macrocytosis Slight; Mean Platelet Volume 7.2; Monocytes # (A) 0.6 k/uL (0-1.0); Monocytes % (A) 5 %; Neutrophils # (A) 9.1 k/uL (1.3-7.7); Neutrophils % (A) 80 %; Platelet Count 188 k/uL (150-450); RBC 3.77 m/uL (3.80-5.40); RDW 13.7 % (11.5-15.5); WBC 11.5 k/uL (3.8-10.6)
[2022-01-15 08:18] LABS: Albumin 4.4 g/dL (3.5-5.0); Calcium 9.5 mg/dL (8.4-10.2); Potassium 4.3 mmol/L (3.5-5.1); Total Bilirubin 0.8 mg/dL (0.2-1.3); Total Protein 7.3 g/dL (6.3-8.2)
[2022-01-15 08:21] LABS: Appearance,Urine Turbid (Clear); Bacteria,Urine Many /hpf; Bilirubin,Urine Negative (Negative); Blood,Urine Large (Negative); Color,Urine Yellow; Glucose,Urine (UA) Negative (Negative); Ketones,Urine Negative (Negative); Leukocyte Esterase,Urine Large (Negative); Mucus,Urine Moderate /hpf; Nitrite,Urine Negative (Negative); PH, Urine 5.5 (5.0-8.0); Protein,Urine 2+ (Negative); RBC,Urine 170 /hpf (0-5); Specific Gravity,Urine 1.019 (1.001-1.035); Urobilinogen,Urine <2.0 mg/dL (<2.0); WBC,Urine >182 /hpf (0-5)
[2022-01-15] MEDS ORDERED: cefTRIAXone IN SWFI 1,000 MG/10 ML SYRINGE IVP STA (08:26)
[2022-01-15 08:35] VITALS: RESP 18
[2022-01-15 08:49] VITALS: BP 135/68; PULSE 61
== END 2022-01-15 08:49 | disposition home or self-care (01) ==
LOC: EC 07:03
DX: N39.0 Urinary tract infection, site not specified (principal); I10 Essential (primary) hypertension; K21.9 Gastro-esophageal reflux disease without esophagitis; E78.5 Hyperlipidemia, unspecified; Z79.83 Long term (current) use of bisphosphonates
CPT/HCPCS: 36415; 80053; 82150; 83605; 83690; 85025; 81001; 87086; 99283; 96374; 96375; 96361; J2405; J0696; J1885; J1170

== ENCOUNTER → 2022-02-18 | Outpatient (CLI) | payer MEDICARE, BC ==
[2022-02-18 11:47] LABS: African American GFR (CKD) >90 (>60 ml/min/1.73 sqM); Blood Urea Nitrogen 17 mg/dL (7-17); Non-African American GFR(CKD) 80 (>60 ml/min/1.73 sqM)
--- NOTE | 2022-02-18 14:37 | CT ---
EXAMINATION TYPE: CT abdomen pelvis w con CT DLP: 1439.7 mGycm, Automated exposure control for dose reduction was used. DATE OF EXAM: 02/18/2022 2:29 PM COMPARISON: CT pelvis 01/21/2022, CT 12/18/2021 CLINICAL INDICATION:Female, 86 years old with history of K57.80 Diverticulitis; Diverticulitis TECHNIQUE: Axial CT of the abdomen and pelvis . Sagittal and coronal reformats were created on a Checkd.In workstation. Contrast used:70 ML mL of Isovue 300 with IV Contrast, Oral contrast used: with Oral Contrast FINDINGS: LOWER CHEST: Aortic valve calcifications are present and partially visualized. ABDOMEN LIVER: Unremarkable GALLBLADDER AND BILE DUCTS: The gallbladder is surgically absent. PANCREAS: Unremarkable. SPLEEN: Unremarkable. ADRENAL GLANDS: Unchanged left adrenal nodule measuring 1.3 cm KIDNEYS AND URETERS: No evidence of hydronephrosis or renal calculus. The ureters are unremarkable. PELVIS BLADDER: Unremarkable REPRODUCTIVE: Unremarkable. ABDOMEN & PELVIS STOMACH AND BOWEL: Persistent fluid collection in the area of prior abscess along the colon within th e left pelvis adjacent to the urinary bladder best appreciated on series 12 image 64-66. This area me asures 2.4 x 1.6 x 1.9 cm and is felt to have been previously larger on prior exam measuring 3.0 x 2. 4 x 1.7 cm. There remains multiple clonic diverticula present. PERITONEUM: No evidence of pneumoperitoneum or free fluid. VASCULATURE: Mild atherosclerotic calcifications are present throughout the abdominal aorta and its b ranches. No evidence of aortic aneurysm. MUSCULOSKELETAL: No acute osseous abnormalities. Multilevel disc degeneration changes with disc osteo phyte complexes with at least mild spinal canal stenosis at multiple levels. This is unchanged from p rior. Degeneration changes of the hips bilaterally. LYMPH NODES: No gross evidence for lymphadenopathy. SOFT TISSUE/ABDOMINAL WALL: Unremarkable IMPRESSION: 1. Continued improvement with decrease in size of pericolonic fluid collection. 2. Chronic diverticulosis. 3. Unchanged left adrenal gland indeterminate nodule.
== END | disposition home or self-care (01) ==
LOC: RADCTMAIN 11:01
PROVIDERS: ATTEND Surgery
DX: D35.02 Benign neoplasm of left adrenal gland (principal); K57.30 Diverticulosis of large intestine without perforation or abscess without bleeding
CPT/HCPCS: 82565; 84520; 74177; 36415; Q9967 ×2

== ENCOUNTER → 2022-04-12 | Outpatient (CLI) | payer MEDICARE, BC ==
[2022-04-12 13:02] LABS: HCT 37.7 % (34.0-46.0); HGB 13.1 gm/dL (11.4-16.0); MCH 35.2 pg (25.0-35.0); MCHC 34.8 g/dL (31.0-37.0); MCV 101.1 fL (80.0-100.0); Mean Platelet Volume 7.3; Platelet Count 173 k/uL (150-450); RBC 3.73 m/uL (3.80-5.40); RDW 12.6 % (11.5-15.5); WBC 7.2 k/uL (3.8-10.6)
[2022-04-12 13:12] LABS: African American GFR (CKD) >90 (>60 ml/min/1.73 sqM); Anion Gap 8 mmol/L; Blood Urea Nitrogen 19 mg/dL (7-17); Calcium 9.3 mg/dL (8.4-10.2); Carbon Dioxide 31 mmol/L (22-30); Chloride 89 mmol/L (98-107); Glucose 99 mg/dL (74-99); Non-African American GFR(CKD) 80 (>60 ml/min/1.73 sqM); Potassium 5.1 mmol/L (3.5-5.1); Sodium 128 mmol/L (137-145)
--- NOTE | 2022-04-12 14:09 | CT ---
EXAMINATION TYPE: CT abdomen pelvis w con DATE OF EXAM: 04/12/2022 COMPARISON: 02/18/2022 HISTORY: diverticulitis CT DLP: 1249 mGycm CONTRAST: CT scan of the abdomen and pelvis is performed without Oral Contrast and with IV Contrast, patient in jected with 70 mL of Isovue 300. FINDINGS: LUNG BASES-: No visible nodule. No infiltrate. LIVER/GB: The gallbladder surgically absent. No space occupying hepatic lesion. Biliary tree is of normal caliber. PANCREAS: No inflammation. No distinct mass. SPLEEN: No splenic enlargement. No lesion seen. ADRENALS: Small adrenal adenomas are seen bilaterally. No thickening. KIDNEYS/BLADDER: No hydronephrosis. No nephrolithiasis. No distinct renal mass. Urinary bladder g rossly unremarkable. BOWEL: Small fluid collection adjacent to the sigmoid colon continues to diminish in size and current ly measures 1 cm versus prior maximal measurement of 1.6 x 2.4 cm. No new collections are seen. There is mild wall thickening of the adjacent urinary bladder without fistulous communication at this time . Sigmoid diverticulosis. Normal appendix. Small and large bowel are of normal caliber. GENITAL ORGANS: Obstructive changes seen. LYMPH NODES: No greater than 1cm abdominal or pelvic lymph nodes are appreciated. AORTA: No significant abnormality. OSSEOUS STRUCTURES: No significant abnormality is seen. OTHER: No significant additional abnormality is seen. IMPRESSION: 1. Small fluid collection adjacent to the sigmoid colon continues to diminish in size and currently m easures 1 cm versus prior maximal measurement of 1.6 x 2.4 cm. No new collections are seen.
== END | disposition home or self-care (01) ==
LOC: RADCTMAIN 12:33
PROVIDERS: ATTEND Family Medicine
DX: K57.92 Diverticulitis of intestine, part unspecified, without perforation or abscess without bleeding (principal)
CPT/HCPCS: 80048; 85027; 74177; 36415; Q9967

== ENCOUNTER → 2022-08-30 | Outpatient (CLI) | payer MEDICARE, BC ==
[2022-08-30 18:52] LABS: Anion Gap 9.7 mmol/L (10.00-18.00); BUN/Creat Ratio 19.17 Ratio (12.00-20.00); Blood Urea Nitrogen 14.3 mg/dL (9.0-27.0); Calcium 9.6 mg/dL (8.7-10.3); Magnesium 1.9 mg/dL (1.5-2.4); Non-African American GFR(CKD) 71.6 (60.0-200.0); Potassium 5.2 mmol/L (3.5-5.5)
== END | disposition home or self-care (01) ==
LOC: LABWHC1 11:16
PROVIDERS: ATTEND Nurse Practitioner Adult Health
DX: I10 Essential (primary) hypertension (principal)
CPT/HCPCS: 36415; 80048; 83735

== ENCOUNTER 2022-10-25 09:04 | Day surgery (SDC) | payer MEDICARE, BC ==
[2022-10-23 10:53] VITALS: BMI 23.2
[~2022-10-25 09:04] MED LIST: ALPRAZolam 0.25 MG TAB PO PRN; ALPRAZolam 0.5 MG TAB PO PRN; ASPIRIN 325 MG TAB PO STA; ATORVASTATIN 80 MG TAB PO STA; HEPARIN SODIUM,PORCINE 10,000 UNIT in SODIUM CHLORIDE 0.9% 1,000 ML IRRIGATION PRN; HEPARIN SODIUM,PORCINE 2,500 UNIT in SODIUM CHLORIDE 0.9% 250 ML IRRIGATION PRN; NITROGLYCERIN SL TABS 0.4 MG TAB SUBLINGUAL PRN
[2022-10-25] MEDS: SODIUM CHLORIDE 0.9% 1,000 ML in EMPTY BAG 1 BAG IV SCH ×2 (09:27→21:00)
[2022-10-25 09:48] LABS: Basophils # (A) 0.1 k/uL (0-0.2); Basophils % (A) 1 %; Eosinophils # (A) 0.2 k/uL (0-0.7); Eosinophils % (A) 2 %; HCT 37.8 % (34.0-46.0); HGB 13.3 gm/dL (11.4-16.0); Lymphocytes # (A) 1.8 k/uL (1.0-4.8); Lymphocytes % (A) 18 %; MCH 34.2 pg (25.0-35.0); MCV 97.4 fL (80.0-100.0); Mean Platelet Volume 7.7; Monocytes # (A) 0.6 k/uL (0-1.0); Monocytes % (A) 6 %; Neutrophils # (A) 7.2 k/uL (1.3-7.7); Neutrophils % (A) 71 %; Platelet Count 193 k/uL (150-450); RBC 3.88 m/uL (3.80-5.40); RDW 12.4 % (11.5-15.5); WBC 10.1 k/uL (3.8-10.6)
[2022-10-25 09:56] LABS: African American GFR (CKD) >90 (>60 ml/min/1.73 sqM); Anion Gap 9 mmol/L; Blood Urea Nitrogen 18 mg/dL (7-17); Calcium 9.2 mg/dL (8.4-10.2); Carbon Dioxide 28 mmol/L (22-30); Chloride 100 mmol/L (98-107); Glucose 115 mg/dL (74-99); Non-African American GFR(CKD) 81 (>60 ml/min/1.73 sqM); Sodium 137 mmol/L (137-145)
[2022-10-25 09:57] LABS: Potassium 4.4 mmol/L (3.5-5.1)
[2022-10-25] MEDS ORDERED: VERAPAMIL SYRINGE (5 MG/10 ML) INTRAARTER ONE (11:58)
[2022-10-25] MEDS ORDERED: MIDAZOLAM 2 MG/2 ML VIAL IV ONE (11:58)
[2022-10-25] MEDS ORDERED: LIDOCAINE 1% INJ 10MG/ML (20 ML MDV) SQ ONE ×2 (11:58→11:59)
[2022-10-25] MEDS ORDERED: VERAPAMIL SYRINGE (5 MG/10 ML) IV ONE (12:08)
[2022-10-25] MEDS ORDERED: HEPARIN SODIUM 1,000 UN/ML (10ML VL) IV ONE ×3 (12:10→12:42)
[2022-10-25] MEDS ORDERED: fentaNYL (PF) 50 MCG/ML 2 ML AMP IV ONE (12:12)
[2022-10-25] MEDS ORDERED: CLOPIDOGREL 75 MG TAB PO ONE (12:22)
[2022-10-25] MEDS ORDERED: NITROGLYCERIN 1000MCG/10ML SYRINGE INTRACORON ONE (12:23)
[2022-10-25] MEDS ORDERED: ATROPINE SULFATE 0.1 MG/ML 10ML SYRINGE IV PRN (12:32)
[2022-10-25] MEDS ORDERED: NITROGLYCERIN SL TABS 0.4 MG TAB SUBLINGUAL PRN (12:32)
[2022-10-25] MEDS ORDERED: ZOLPIDEM 5 MG TAB PO PRN (12:32)
[2022-10-25] MEDS ORDERED: polyethylene glycoL 3350 17 GM POWD.PACK PO PRN (12:32)
[2022-10-25] MEDS ORDERED: RX INFO: IV CONTRAST WAS GIVEN 1 EACH MISC MISCELLANE PRN (12:32)
[2022-10-25] MEDS ORDERED: MAG HYDROX/AL HYDROX/SIMETH 30 ML CUP PO PRN (12:32)
[2022-10-25] MEDS ORDERED: MELOXICAM 7.5 MG TAB PO PRN (12:32)
--- NOTE | 2022-10-25 12:39 | P.PCN ---
Date of Procedure: 10/25/22 Operative Findings: CARDIAC CATHETERIZATION AND PERCUTANEOUS CORONARY INTERVENTION PERFORMING PHYSICIAN: Damián Franco MD, RPVI PROCEDURE PERFORMED: 1. Selective right and left coronary angiogram 2. Successful stenting of mid RCA using 3.0 x 15 mm Xience KELLIE which was postdilated using 3.25 mm noncompliant balloon with an excellent angiographic results 3. Ultrasound-guided access of the right radial artery INDICATION: The patient is a pleasant 87-year-old female patient was diagnosis and he was severe symptomatic aortic stenosis and she scheduled to undergo balloon valvuloplasty of the aortic valve. She was brought today to undergo a heart catheterization. COMPLICATION: None APPROACH: Right radial artery LEVEL OF SEDATION: Moderate with the sedation time off 32 minutes PROCEDURE DESCRIPTION: After obtaining an informed consent the patient was brought to the cardiac slab depiler operator. The right radial artery was cannulated using micropuncture technique, subsequently I placed a 6-Divehi sheath. I gave the patient 2 mg of verapamil intra-arterial and 4000 units of heparin intravenous. Selective right and left coronary angiogram performed using JR4 and JL 3.5 catheters. After that it intervene on the right coronary artery. SELECTIVE CORONARY ANGIOGRAM: The right coronary artery: Large caliber vessel and a dominant vessel. The mid RCA has a tight lesion appeared to be in the range of 70-80% Left main: Short but angiographically normal. Bifurcates into LCx and LAD The left circumflex: Large caliber vessel. The LCx system appears to have mild disease only. The left anterior descending artery: Large caliber vessel was mild disease only. PCI OF THE RCA: Anticoagulation was initiated using heparin with continuous ACT monitoring. Subsequently I did engage the RCA using JR4 guiding catheter. I did wired using a run-through wire. Predilatation was performed using 2.5 mm balloon before I deployed 3.0 x 15 mm stent. Subsequently I postdilated the stent using 3.25 mm noncompliant balloon. Final angiogram was performed and showed an excellent angiographic results and the procedure was completed with no complication. CONCLUSION: Severe single-vessel coronary artery disease involving the mid RCA. I did perform successful stenting of the RCA POSTPROCEDURE MANAGEMENT: 1. Dual antiplatelet therapy using aspirin and Plavix for 6 month 2. Balloon valvuloplasty of the aortic valve to be performed. 3. Follow-up with the patient
[2022-10-25] MEDS ORDERED: IOPAMIDOL-370 125ML BTL INJ ONE (12:42)
[2022-10-25] MEDS ORDERED: SODIUM CHLORIDE 0.9% 1,000 ML in EMPTY BAG 1 BAG IV SCH (12:45)
[2022-10-25] MEDS ORDERED: ACETAMINOPHEN TAB 325 MG TAB PO PRN (20:51)
[2022-10-25] MEDS: METOPROLOL TARTRATE 50 MG TAB PO SCH (20:52)
[2022-10-25] MEDS ORDERED: ATORVASTATIN 80 MG TAB PO SCH (21:00)
[2022-10-25] MEDS ORDERED: MELATONIN 3 MG TABLET PO SCH (21:00)
[2022-10-25] MEDS ORDERED: traZODone HCL 50 MG TAB PO SCH (21:00)
[2022-10-25] MEDS ORDERED: amLODIPine 5 MG TAB PO SCH (21:00)
[2022-10-26 06:56] LABS: African American GFR (CKD) >90 (>60 ml/min/1.73 sqM); Non-African American GFR(CKD) 81 (>60 ml/min/1.73 sqM)
[2022-10-26] MEDS ORDERED: PANTOPRAZOLE 40 MG TABLET PO SCH (07:30)
[2022-10-26] MEDS: METOPROLOL TARTRATE 50 MG TAB PO SCH (08:03)
[2022-10-26 08:37] VITALS: BP 156/73; RESP 18; TEMP 97.8
--- NOTE | 2022-10-26 08:41 | P.DS ---
Providers Attending physician: Damián Franco Consults: 10/25/22 12:33 Consult Physician Routine Consulting Provider: [facility] Consult Reason/Comments: Post Interventional Patient Do you want consulting provider notified?: Already Contacted Primary care physician: Nuno [facility] Course: The patient is a pleasant 87-year-old female patient who underwent yesterday successful stenting of the RCA. She was seen this morning that she is asymptomatic she is hemodynamically stable. The patient is going to be discharged home on dual antiplatelet therapy and she will be scheduled to undergo an aortic valvuloplasty in the next few weeks. Plan - Discharge Summary Discharge Rx Participant: No New Discharge Prescriptions: New Clopidogrel [Plavix] 75 mg PO DAILY #90 tab Continue Meloxicam [Mobic] 7.5 mg PO DAILY PRN PRN Reason: Pain Calcium Carbonate/Vitamin D3 [Calcium 600-Vit D3 400 Tablet] 1 tab PO DAILY traZODone HCL 25 mg PO HS Multivit-Min/FA/Lycopen/Lutein [Centrum Silver Tablet] 1 tab PO DAILY Atorvastatin [Lipitor] 80 mg PO HS Valsartan [Diovan] 80 mg PO DAILY #30 tab Melatonin 3 mg PO HS tab Metoprolol Tartrate [Lopressor] 50 mg PO BID Omeprazole [PriLOSEC] 40 mg PO DAILY polyethylene glycoL 3350 [Miralax] 17 gm PO DAILY PRN packet PRN Reason: Constipation amLODIPine [Norvasc] 5 mg PO HS Aspirin 81 mg PO DAILY Discharge Medication List Meloxicam [Mobic] 7.5 mg PO DAILY PRN 12/28/13 [History] Calcium Carbonate/Vitamin D3 [Calcium 600-Vit D3 400 Tablet] 1 tab PO DAILY 10/04/14 [History] Atorvastatin [Lipitor] 80 mg PO HS 03/14/19 [History] Multivit-Min/FA/Lycopen/Lutein [Centrum Silver Tablet] 1 tab PO DAILY 03/14/19 [History] traZODone HCL 25 mg PO HS 03/14/19 [History] Metoprolol Tartrate [Lopressor] 50 mg PO BID 02/12/21 [History] Omeprazole [PriLOSEC] 40 mg PO DAILY 12/12/21 [History] Melatonin 3 mg PO HS tab 05/12/22 [Rx] Valsartan [Diovan] 80 mg PO DAILY #30 tab 05/12/22 [Rx] polyethylene glycoL 3350 [Miralax] 17 gm PO DAILY PRN packet 05/12/22 [Rx] amLODIPine [Norvasc] 5 mg PO HS 10/23/22 [History] Aspirin 81 mg PO DAILY 10/25/22 [History] Clopidogrel [Plavix] 75 mg PO DAILY #90 tab 10/26/22 [Rx] Follow up Appointment(s)/Referral(s): Damián Franco MD [STAFF PHYSICIAN] - 11/04/22 11:15 am
[2022-10-26] MEDS ORDERED: CALCIUM CARB-VIT D 500 MG-5 MCG TAB PO SCH (09:00)
[2022-10-26] MEDS ORDERED: MULTIVITAMINS, THERA 1 EACH TAB PO SCH (09:00)
[2022-10-26] MEDS ORDERED: CLOPIDOGREL 75 MG TAB PO SCH (09:00)
[2022-10-26] MEDS ORDERED: VALSARTAN 80 MG TAB PO SCH (09:00)
[2022-10-26] MEDS ORDERED: ASPIRIN 81 MG PO SCH (09:00)
[2022-10-26 09:17] VITALS: PULSE 72
== END 2022-10-26 10:00 | disposition home or self-care (01) ==
LOC: CATHCVL 09:04 → 6NMEDSUR 12:30 → CATHCVL 10-26 10:00
PROVIDERS: ATTEND Internal Medicine Interventional Cardiology
DX: I25.10 Atherosclerotic heart disease of native coronary artery without angina pectoris (principal); Z79.82 Long term (current) use of aspirin; Z79.899 Other long term (current) drug therapy; Z95.5 Presence of coronary angioplasty implant and graft
CPT/HCPCS: 94760; 80048; 82565; 85025; 92928; 93454; J2250; J2001; J3010; J1644; Q9967; 76937

== ENCOUNTER 2022-11-06 10:17 | Day surgery (SDC) | payer MEDICARE, BC ==
[~2022-11-06 10:17] MED LIST changes: +SODIUM CHLORIDE 0.9% 1,000 ML in EMPTY BAG 1 BAG IV SCH
[2022-11-06] MEDS ORDERED: SODIUM CHLORIDE 0.9% 1,000 ML IV ONE (10:28)
[2022-11-06 11:07] LABS: Basophils % (A) 1 %; Eosinophils # (A) 0.2 k/uL (0-0.7); Eosinophils % (A) 3 %; HCT 35.5 % (34.0-46.0); HGB 12.4 gm/dL (11.4-16.0); Lymphocytes # (A) 2.4 k/uL (1.0-4.8); Lymphocytes % (A) 37 %; MCH 33.8 pg (25.0-35.0); MCV 96.8 fL (80.0-100.0); Mean Platelet Volume 7.6; Monocytes # (A) 0.4 k/uL (0-1.0); Monocytes % (A) 7 %; Neutrophils # (A) 3.2 k/uL (1.3-7.7); Neutrophils % (A) 50 %; Platelet Count 193 k/uL (150-450); RBC 3.67 m/uL (3.80-5.40); RDW 12.5 % (11.5-15.5); WBC 6.5 k/uL (3.8-10.6)
[2022-11-06 11:33] LABS: African American GFR (CKD) >90 (>60 ml/min/1.73 sqM); Anion Gap 9 mmol/L; Blood Urea Nitrogen 19 mg/dL (7-17); Calcium 9.2 mg/dL (8.4-10.2); Carbon Dioxide 27 mmol/L (22-30); Chloride 101 mmol/L (98-107); Glucose 116 mg/dL (74-99); Non-African American GFR(CKD) 84 (>60 ml/min/1.73 sqM); Sodium 137 mmol/L (137-145)
[2022-11-06 12:00] LABS: Potassium 4.7 mmol/L (3.5-5.1)
[2022-11-06] MEDS ORDERED: HEPARIN SODIUM 1,000 UN/ML (10ML VL) ONE (12:27)
[2022-11-06] MEDS ORDERED: LIDOCAINE 1% INJ 10MG/ML (20 ML MDV) ONE ×2 (12:35→12:50)
[2022-11-06] MEDS ORDERED: LIDOCAINE 1% INJ 10MG/ML (30 ML VIAL-PF) SQ ONE (12:36)
[2022-11-06] MEDS ORDERED: MIDAZOLAM 2 MG/2 ML VIAL IV ONE (12:38)
[2022-11-06] MEDS ORDERED: HEPARIN SODIUM 1,000 UN/ML (10ML VL) IV ONE (12:48)
[2022-11-06] MEDS ORDERED: HYDROmorphone 0.5 MG/0.5 ML SYRINGE IVP ONE (12:52)
[2022-11-06] MEDS ORDERED: HEPARIN SODIUM 1,000 UN/ML (10ML VL) IVP ONE (13:07)
[2022-11-06] MEDS ORDERED: polyethylene glycoL 3350 17 GM POWD.PACK PO PRN (13:22)
[2022-11-06] MEDS ORDERED: MELOXICAM 7.5 MG TAB PO PRN (13:22)
[2022-11-06] MEDS ORDERED: RX INFO: IV CONTRAST WAS GIVEN 1 EACH MISC MISCELLANE PRN (13:30)
[2022-11-06] MEDS ORDERED: MAG HYDROX/AL HYDROX/SIMETH 30 ML CUP PO PRN (13:30)
[2022-11-06] MEDS ORDERED: ZOLPIDEM 5 MG TAB PO PRN (13:30)
[2022-11-06] MEDS ORDERED: ATROPINE SULFATE 0.1 MG/ML 10ML SYRINGE IV PRN (13:30)
--- NOTE | 2022-11-06 13:31 | P.PCN ---
Date of Procedure: 11/06/22 Operative Findings: Transcatheter aortic balloon valvuloplasty Performing physician MD Nia Santana, Procedure performed 1. Successful aortic balloon valvuloplasty using a 22 mm True balloon with an excellent results and reduction of mean gradient from 77-34 2. Left heart catheterization 3. Placement of temporary pacemaker in the right ventricle 4. Selective right common femoral artery angiogram 5. Ultrasound-guided access of the right common femoral artery Indication This is a an 87-year-old female patient who sees Dr. Rascon regularly who was diagnosed recently with severe symptomatic aortic stenosis. 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 She is also scheduled to undergo fistula repair which is high risk surgery. Approach Right common femoral artery and left common femoral vein Complication None Level of sedation Moderate with sedation length of 45 minutes Procedure description After obtaining an informed consent the patient was brought to cardiac lab animal technician. The right common femoral artery was cannulated using micropuncture technique under ultrasound guidance, the micropuncture wire passed easily then I did selective right common femoral artery angiogram. That was performed through the microcatheter. With the entry at the mid right common femoral artery I did place a 6-Afghan sheath over 035 wire. Subsequently I did place two Perclose at the right common femoral artery. Subsequently I placed an 8-Afghan sheath. Then I did access the left common femoral vein and I placed 6-Afghan sheath and the left common femoral vein and then a transvenous temporary pacemaker with balloon tip was advanced under fluoroscopy guidance into the RV. After that I did exchange my 035 wire into a stiff all 35 wire. Then I did upgrade my sheath from 8-Afghan to 12-Afghan sheathing 10-Afghan dilator. After that anticoagulation was initiated using heparin with continuous ACT monitoring. Then I crossed the aortic valve using 035 straight wire with a backup support of 1 catheter. Subsequently the AL-1 was advanced over the wire then the AL-1 was exchanged over a regular 035 wire into a pigtail catheter. With a pressure through the pigtail and pressure through the SideArm of the 12-Afghan sheath we did simultaneous pressure gradient across the valve and that came in to be its mean of 77 mmHg before. Subsequently I did place a stiff wire at the LV through the pigtail catheter and the pigtail catheter was withdrawn out. Then I did balloon angioplasty of the aortic valve using 22 mm balloon. Subsequent gradient measurement came in to be decreased significantly to about 34 mmHg. The blood pressure was stable. The patient tolerated the procedure very well. Subsequently I did close the groin using the two Perclose devices and the procedure was completed was no complication. Postprocedure management Continue the current medical regimen including dual antiplatelet therapy Close monitoring of the groin An echo to be done tomorrow morning Follow-up with the patient
[2022-11-06] MEDS ORDERED: ACETAMINOPHEN TAB 325 MG TAB PO PRN (18:19)
[2022-11-06] MEDS ORDERED: ONDANSETRON 4 MG/2 ML VIAL IVP PRN (18:20)
[2022-11-06] MEDS ORDERED: HYDROcodone/APAP 5-325MG 1 EACH TAB PO PRN (18:20)
[2022-11-06] MEDS: METOPROLOL TARTRATE 50 MG TAB PO SCH (20:27)
[2022-11-06] MEDS ORDERED: traZODone HCL 50 MG TAB PO SCH (21:00)
[2022-11-06] MEDS ORDERED: amLODIPine 5 MG TAB PO SCH (21:00)
[2022-11-06] MEDS ORDERED: ATORVASTATIN 80 MG TAB PO SCH (21:00)
[2022-11-06] MEDS ORDERED: MELATONIN 3 MG TABLET PO SCH (21:00)
[2022-11-07 04:34] VITALS: RESP 18
[2022-11-07] MEDS ORDERED: PANTOPRAZOLE 40 MG TABLET PO SCH (07:30)
[2022-11-07 08:29] LABS: Basophils % (A) 1 %; Eosinophils # (A) 0.1 k/uL (0-0.7); Eosinophils % (A) 1 %; HCT 31.6 % (34.0-46.0); HGB 10.5 gm/dL (11.4-16.0); Lymphocytes # (A) 1.6 k/uL (1.0-4.8); Lymphocytes % (A) 25 %; MCHC 33.2 g/dL (31.0-37.0); Macrocytosis Slight; Mean Platelet Volume 8.1; Monocytes # (A) 0.5 k/uL (0-1.0); Monocytes % (A) 8 %; Neutrophils # (A) 4.1 k/uL (1.3-7.7); Neutrophils % (A) 62 %; Platelet Count 147 k/uL (150-450); RBC 3.09 m/uL (3.80-5.40); RDW 12.4 % (11.5-15.5); WBC 6.5 k/uL (3.8-10.6)
[2022-11-07 08:54] LABS: African American GFR (CKD) >90 (>60 ml/min/1.73 sqM); Anion Gap 7 mmol/L; Blood Urea Nitrogen 19 mg/dL (7-17); Calcium 8.7 mg/dL (8.4-10.2); Carbon Dioxide 27 mmol/L (22-30); Chloride 102 mmol/L (98-107); Glucose 89 mg/dL (74-99); Non-African American GFR(CKD) 84 (>60 ml/min/1.73 sqM); Potassium 4.4 mmol/L (3.5-5.1); Sodium 136 mmol/L (137-145)
[2022-11-07] MEDS ORDERED: FUROSEMIDE 20 MG TAB PO SCH (09:00)
[2022-11-07] MEDS ORDERED: ASPIRIN 81 MG PO SCH (09:00)
[2022-11-07] MEDS ORDERED: MULTIVITAMINS, THERA 1 EACH TAB PO SCH (09:00)
[2022-11-07] MEDS ORDERED: CLOPIDOGREL 75 MG TAB PO SCH (09:00)
[2022-11-07] MEDS ORDERED: CALCIUM CARB-VIT D 500 MG-5 MCG TAB PO SCH (09:00)
[2022-11-07] MEDS ORDERED: VALSARTAN 80 MG TAB PO SCH (09:00)
[2022-11-07 09:34] LABS: MCV 102.5 fL (80.0-100.0)
[2022-11-07] MEDS: METOPROLOL TARTRATE 50 MG TAB PO SCH (10:02)
--- NOTE | 2022-11-07 10:11 | CA ---
Transthoracic Echo Report Name: Ana Laura Camara Age: 87 Gender: F : 1935 Exam Date: 11/06/2022 13:44 Exam Location: [facility] Ht (in): 62 Wt (lb): 124 Ordering Physician: Damián Franco MD ([id number]) Attending/Referring Phys: Foot Specialist Sarai Benitez RDCS Procedure CPT: Indications: s/p BAV Cardiac Hx: Technical Quality: Fair Contrast 1: Total Dose (mL): Contrast 2: Total Dose (mL): MEASUREMENTS (Male / Female) Normal Values 2D ECHO LV Diastolic Diameter PLAX 2.9 cm 4.2 - 5.9 / 3.9 - 5.3 cm LV Systolic Diameter PLAX 1.8 cm IVS Diastolic Thickness 1.3 cm 0.6 - 1.0 / 0.6 - 0.9 cm LVPW Diastolic Thickness 1.5 cm 0.6 - 1.0 / 0.6 - 0.9 cm LV Relative Wall Thickness 0.9 RV Internal Dim ED PLAX 3.9 cm LA Volume 40.7 cm??? 18 - 58 / 22 - 52 cm??? M-MODE Aortic Root Diameter MM 2.7 cm LA Systolic Diameter MM 3.8 cm LA Ao Ratio MM 1.4 AV Cusp Separation MM 1.3 cm DOPPLER AV Peak Velocity 350.1 cm/s AV Peak Gradient 49.0 mmHg AV Mean Velocity 256.0 cm/s AV Mean Gradient 28.6 mmHg AV Velocity Time Integral 86.2 cm AI Peak Velocity 375.3 cm/s AI Peak Gradient 56.3 mmHg AI Pressure Half Time 366.2 ms LVOT Peak Velocity 101.4 cm/s LVOT Peak Gradient 4.1 mmHg LVOT Velocity Time Integral 24.5 cm MV Area PHT 2.9 cm??? Mitral E Point Velocity 108.0 cm/s Mitral A Point Velocity 117.8 cm/s Mitral E to A Ratio 0.9 MV Deceleration Time 261.1 ms MV E' Velocity 4.3 cm/s Mitral E to MV E' Ratio 24.8 TR Peak Velocity 345.2 cm/s TR Peak Gradient 47.7 mmHg Right Ventricular Systolic Press 52.0 mmHg FINDINGS Left Ventricle Left ventricular cavity size normal. Moderately increased left ventricular wall thickness. Normal left ventricular systolic function with no obvious regional wall motion abnormalities. Left ventricular ejection fraction is estimated at 55-60 %. Right Ventricle Mild right ventricular dilatation. Moderate to severe pulmonary hypertension. Right ventricular systolic pressure estimated at 52 mm hg. Right Atrium Normal right atrial size. Left Atrium Normal left atrial size. Mitral Valve Structurally normal mitral valve. Mild mitral annular calcification. Mild Mitral valve thickening. Mild mitral regurgitation. Aortic Valve Trace to mild aortic regurgitation.history of balloon valvuloplasty. Moderate aortic stenosis with a peak gradient of 49 mmHg and a mean gradient of 29 mmHg. Tricuspid Valve Structurally normal tricuspid valve. [id number] tricuspid regurgitation. Pulmonic Valve Structurally normal pulmonic valve. Pericardium Minimal pericardial effusion (normal variant). Aorta Normal size aortic root and proximal ascending aorta. CONCLUSIONS Normal LV size and systolic function with moderate concentric LVH. Mildly dilated right ventricle. Moderate Aortic valve stenosis history of balloon valvuloplasty. Mitral annular calcification mild mitral and mild to moderate tricuspid regurgitation with moderate pulmonary hypertension Previewed by: Dr. Ynes Guzman MD (Electronically Signed) Final Date: 07 November 2022 10:10
[2022-11-07 10:37] VITALS: BP 109/53; PULSE 76; TEMP 98.7
[2022-11-07 12:28] VITALS: BMI 22.8
--- NOTE | 2022-11-07 20:22 | P.DS ---
Providers Attending physician: Damián Franco Consults: 11/06/22 13:31 Consult Physician Routine Consulting Provider: [facility] Consult Reason/Comments: Post Interventional Patient Do you want consulting provider notified?: Already Contacted Primary care physician: [facility] Course: The patient is a pleasant 87-year-old female patient who was diagnosed recently with severe symptomatic aortic stenosis not amenable for transcatheter aortic valve replacement giving she has fistula and she is in process of having surgery for the fistula. The concern that the transcatheter valve might get infected. In the light of being symptomatic with severe aortic stenosis as well as upcoming high risk noncardiac surgery we decided to pursue with aortic balloon valvuloplasty. That was performed yesterday from right groin approach with an excellent results and significant reduction in the gradient She was seen this morning. She is asymptomatic at this point. She is hemodynamically stable. The right groin is soft and nontender was no bruises with a good distal pulse. The patient is going to be discharged home and follow-up with Dr. Rascon as an outpatient Plan - Discharge Summary Discharge Rx Participant: No New Discharge Prescriptions: Continue Meloxicam [Mobic] 7.5 mg PO DAILY PRN PRN Reason: Pain Calcium Carbonate/Vitamin D3 [Calcium 600-Vit D3 400 Tablet] 1 tab PO DAILY traZODone HCL 25 mg PO HS Multivit-Min/FA/Lycopen/Lutein [Centrum Silver Tablet] 1 tab PO DAILY Atorvastatin [Lipitor] 80 mg PO HS Valsartan [Diovan] 80 mg PO DAILY #30 tab Melatonin 3 mg PO HS tab Furosemide [Lasix] 20 mg PO DAILY Metoprolol Tartrate [Lopressor] 50 mg PO BID Omeprazole [PriLOSEC] 40 mg PO DAILY polyethylene glycoL 3350 [Miralax] 17 gm PO DAILY PRN packet PRN Reason: Constipation amLODIPine [Norvasc] 5 mg PO HS Aspirin 81 mg PO DAILY Clopidogrel [Plavix] 75 mg PO DAILY #90 tab Discharge Medication List Meloxicam [Mobic] 7.5 mg PO DAILY PRN 12/28/13 [History] Calcium Carbonate/Vitamin D3 [Calcium 600-Vit D3 400 Tablet] 1 tab PO DAILY 10/04/14 [History] Atorvastatin [Lipitor] 80 mg PO HS 03/14/19 [History] Multivit-Min/FA/Lycopen/Lutein [Centrum Silver Tablet] 1 tab PO DAILY 03/14/19 [History] traZODone HCL 25 mg PO HS 03/14/19 [History] Metoprolol Tartrate [Lopressor] 50 mg PO BID 02/12/21 [History] Omeprazole [PriLOSEC] 40 mg PO DAILY 12/12/21 [History] Melatonin 3 mg PO HS tab 05/12/22 [Rx] Valsartan [Diovan] 80 mg PO DAILY #30 tab 05/12/22 [Rx] polyethylene glycoL 3350 [Miralax] 17 gm PO DAILY PRN packet 05/12/22 [Rx] amLODIPine [Norvasc] 5 mg PO HS 10/23/22 [History] Aspirin 81 mg PO DAILY 10/25/22 [History] Clopidogrel [Plavix] 75 mg PO DAILY #90 tab 10/26/22 [Rx] Furosemide [Lasix] 20 mg PO DAILY 11/05/22 [History] Follow up Appointment(s)/Referral(s): Skip Rascon MD [STAFF PHYSICIAN] - 11/14/22 9:45 am () Patient Instructions/Handouts: Aortic Balloon Valvuloplasty (DC), Moderate Sedation (DC) Activity/Diet/Wound Care/Special Instructions: *NO LIFTING, PUSHING, OR PULLING ANYTHING OVER 5 POUNDS FOR 5 DAYS *NO DRIVING FOR 3 DAYS *YOU CAN SHOWER TOMORROW BUT DO NOT SUBMERSE YOUR PUNCTURE SITE IN WATER FOR A FEW DAYS TO PREVENT INFECTION - SO NO TUB BATHS, POOLS, HOT TUBS, DISHES...ETC *ANY SIGNS OF BLEEDING (HARDNESS, SWELLING, OR EXCESSIVE BRUISING) HOLD DIRECT PRESSURE ON YOUR PUNCTURE SITE AND COME TO THE NEAREST EMERGENCY ROOM TO GET YOUR PUNCTURE SITE LOOKED AT - DO NOT DRIVE YOURSELF! EITHER CALL EMS OR HAVE SOMEONE DRIVE YOU! Discharge Disposition: HOME SELF-CARE
== END 2022-11-07 12:08 | disposition home or self-care (01) ==
LOC: CATHCVL 10:17 → 3SCARD 16:02 → CATHCVL 11-07 12:08
PROVIDERS: ATTEND Internal Medicine Interventional Cardiology
DX: I08.3 Combined rheumatic disorders of mitral, aortic and tricuspid valves (principal); I27.20 Pulmonary hypertension, unspecified; I31.39 Other pericardial effusion (noninflammatory); I10 Essential (primary) hypertension; I65.23 Occlusion and stenosis of bilateral carotid arteries; E78.5 Hyperlipidemia, unspecified; E11.9 Type 2 diabetes mellitus without complications; Z79.01 Long term (current) use of anticoagulants; Z79.02 Long term (current) use of antithrombotics/antiplatelets; Z79.899 Other long term (current) drug therapy; Z79.82 Long term (current) use of aspirin
CPT/HCPCS: 33210; 99152; 99153 ×2; 94760; 93306; 92986; 76937; 80048 ×2; 85025 ×2; C1769 ×5; C1894 ×3; C1760 ×2; C1725; J2250; J2001; J1644; J1170

== ENCOUNTER 2023-03-03 07:30 | Inpatient (IN) | payer MEDICARE, BC ==
[~2023-03-03 07:30] MED LIST changes: +ACETAMINOPHEN TAB 500 MG TAB PO PRN; -ALPRAZolam 0.25 MG TAB PO PRN; -ALPRAZolam 0.5 MG TAB PO PRN; +ALVIMOPAN 12 MG CAPSULE PO PRN; -ASPIRIN 325 MG TAB PO STA; -ATORVASTATIN 80 MG TAB PO STA; +DEXAMETHASONE SOD PHOSPHATE 4 MG/ML 1 ML VIAL IV ONE; -HEPARIN SODIUM,PORCINE 10,000 UNIT in SODIUM CHLORIDE 0.9% 1,000 ML IRRIGATION PRN; -HEPARIN SODIUM,PORCINE 2,500 UNIT in SODIUM CHLORIDE 0.9% 250 ML IRRIGATION PRN; +HEPARIN SODIUM,PORCINE/PF 5,000 UNIT/0.5 ML SYRINGE SQ PRN; +HYDROmorphone 0.5 MG/0.5 ML SYRINGE IVP PRN; +LIDOCAINE 1% (10MG/ML) FOR IV START INTRADERMA PRN; -NITROGLYCERIN SL TABS 0.4 MG TAB SUBLINGUAL PRN; +ONDANSETRON 4 MG/2 ML VIAL IVP ONE; -SODIUM CHLORIDE 0.9% 1,000 ML in EMPTY BAG 1 BAG IV SCH; +droPERidol 5 MG/2 ML VIAL IVP ONE; +metroNIDAZOLE-NS PMX 500 MG in SALINE 1 100ML.BAG IVPB PRN
[2023-03-03] MEDS: LACTATED RINGERS 1,000 ML IV SCH (09:10)
[2023-03-03 09:25] LABS: HGB 13.5 gm/dL (11.4-16.0); MCH 34.8 pg (25.0-35.0); MCHC 35.5 g/dL (31.0-37.0); MCV 97.8 fL (80.0-100.0); Mean Platelet Volume 7.3; Platelet Count 151 k/uL (150-450); RBC 3.89 m/uL (3.80-5.40); RDW 12.9 % (11.5-15.5); WBC 9.2 k/uL (3.8-10.6)
[2023-03-03 10:01] LABS: Prothrombin Time 10.9 sec (9.0-12.0)
--- NOTE | 2023-03-03 10:19 | P.GSHP ---
History of Present Illness H&P Date: 03/03/23 Chief Complaint: Colovaginal fistula 87-year-old female well known to our service. Patient has been followed for the last year or more with recurrent diverticulitis. Patient started developing vaginal area and discharge about 6-9 months ago. Prior CAT scans showed small d iverticular abscess and possible developing fistula. Last colonoscopy 10 years ago. Patient had recent cardiac intervention that forced us to wait on surgery for some time. Patient still having vaginal brownish discharge with air. Mild lower abdominal pain at times. Maintaining her weight. No fevers. Recent white blood cell count normal. Past Medical History Past Medical History: Cancer, GERD/Reflux, Hearing Disorder / Deafness, Hyperlipidemia, Hypertension Additional Past Medical History / Comment(s): diverticulitis,borderline blood sugars,had hyponatremia in May 2022 w/ admission of dizziness and weakness,aortic stenosis,ebony lower legs and feet swelling, HEART MURMUR/leaky valve, LOWER BACK PAIN, HX BREAST CA-received radiation. History of Any Multi-Drug Resistant Organisms: None Reported Past Surgical History: Back Surgery, Breast Surgery, Cholecystectomy, Hyste rectomy, Tubal Ligation Additional Past Surgical History / Comment(s): LT LUMPECTOMY then later had lt mastectomy 24 yrs later. PAIN PROC., EXC EBONY CATARACTS, COLONOSCOPY Past Anesthesia/Blood Transfusion Reactions: No Reported Reaction Additional Past Anesthesia/Blood Transfusion Reaction / Comment(s): no hx blood transfusion Past Psychological History: No Psychological Hx Reported Additional Psychological History / Comment(s): Pt resides with her spouse. She does not drive, her spouse drives. Otherwise, she is independent. Smoking Status: Never smoker Past Alcohol Use History: None Reported Past Drug Use History: None Reported - Past Family History Father Family Medical History: No Reported History Additional Family Medical History / Comment(s): Father is healthy Mother Family Medical History: No Reported History Additional Family Medical History / Comment(s): Mother had bowel surgery w/ colostomy then colostomy reversed, thinks r/t diverticulitis Medications and Allergies Home Medications Medication Instructions Recorded Confirmed Type Meloxicam [Mobic] 7.5 mg PO DAILY PRN 12/28/13 03/03/23 History Calcium Carbonate/Vitamin D3 1 tab PO DAILY 10/04/14 03/03/23 History [Calcium 600-Vit D3 400 Tablet] Atorvastatin [Lipitor] 80 mg PO HS 03/14/19 03/03/23 History Multivit-Min/FA/Lycopen/Lutein 1 tab PO DAILY 03/14/19 03/03/23 History [Centrum Silver Tablet] traZODone HCL 25 mg PO HS 03/14/19 03/03/23 History Metoprolol Tartrate [Lopressor] 50 mg PO BID 02/12/21 03/03/23 History Omeprazole [PriLOSEC] 40 mg PO DAILY 12/12/21 03/03/23 History Melatonin 3 mg PO HS tab 05/12/22 03/03/23 Rx Valsartan [Diovan] 80 mg PO DAILY #30 tab 05/12/22 03/03/23 Rx polyethylene glycoL 3350 [Miralax] 17 gm PO DAILY PRN packet 05/12/22 03/03/23 Rx amLODIPine [Norvasc] 5 mg PO HS 10/23/22 03/03/23 History Aspirin 81 mg PO DAILY 10/25/22 03/03/23 History Clopidogrel [Plavix] 75 mg PO DAILY #90 tab 10/26/22 03/03/23 Rx Furosemide [Lasix] 20 mg PO DAILY 11/05/22 03/03/23 History Allergies Allergy/AdvReac Type Severity Reaction Status Date / Time No Known Allergies Allergy Verified 03/03/23 08:34 Surgical - Exam Vital Signs Temp Pulse Resp BP Pulse Ox 97.3 F L 61 16 170/82 98 03/03/23 08:51 03/03/23 08:51 03/03/23 08:51 03/03/23 08:51 03/03/23 08:51 Physical exam: General: Well-developed, well-nourished HEENT: Normocephalic, sclerae nonicteric Abdomen: Nontender, nondistended Extremities: No edema Neuro: Alert and oriented Results - Labs 03/03/23 09:10 Assessment and Plan (1) Colovaginal fistula Narrative/Plan: 87-year-old female with colovaginal fistula. We'll proceed with elective open sigmoid resection with possible ostomy at this time. Risks of bleeding, infection, scarring, ostomy, bladder bowel and ureteral injury, hernia, resp iratory and cardiac complications reviewed. She understands and wishes to proceed. Current Visit: Yes Status: Acute Code(s): N82.4 - OTHER FEMALE INTESTINAL- GENITAL TRACT FISTULAE SNOMED Code(s): 897020605
[2023-03-03 10:30] LABS: ALT 26 U/L (4-34); AST 35 U/L (14-36); African American GFR (CKD) >90 (>60 ml/min/1.73 sqM); Albumin 4.1 g/dL (3.5-5.0); Alkaline Phosphatase 120 U/L (38-126); Anion Gap 8 mmol/L; Blood Urea Nitrogen 16 mg/dL (7-17); Calcium 9.1 mg/dL (8.4-10.2); Carbon Dioxide 29 mmol/L (22-30); Chloride 94 mmol/L (98-107); Glucose 105 mg/dL (74-99); Non-African American GFR(CKD) 80 (>60 ml/min/1.73 sqM); Sodium 131 mmol/L (137-145); Total Bilirubin 0.9 mg/dL (0.2-1.3)
[2023-03-03] MEDS ORDERED: PHENYLEPHRINE-0.9% NACL SYG 1,000 MCG/10 ML SYRINGE ONE (10:32)
[2023-03-03] MEDS ORDERED: LABETALOL SYRINGE 5 MG/ML (4 ML SYR) ONE (10:32)
[2023-03-03] MEDS ORDERED: fentaNYL (PF) 50 MCG/ML 2 ML AMP ONE (10:32)
[2023-03-03] MEDS ORDERED: HYDROmorphone (PF) 1 MG/ML ONE (10:32)
[2023-03-03] MEDS ORDERED: NEOSTIGMINE 1 MG/ML 10 ML VIAL ONE (10:32)
[2023-03-03] MEDS ORDERED: PROPOFOL 10 MG/ML 20 ML VIAL IV ONE (10:32)
[2023-03-03] MEDS ORDERED: GLUCAGON 1 MG/ML VIAL ONE (10:32)
[2023-03-03] MEDS ORDERED: hydrALAZINE HCL 20 MG/ML 1 ML VIAL ONE (10:32)
[2023-03-03] MEDS ORDERED: LIDOCAINE 2% INJ 20 MG/ML (2 ML VIAL) ONE (10:32)
[2023-03-03] MEDS ORDERED: GLYCOPYRROLATE 0.2 MG/ML 2 ML VIAL ONE (10:32)
[2023-03-03] MEDS ORDERED: SUCCINYLCHOLINE CHLORIDE 200 MG/10 ML VIAL IV ONE (10:32)
[2023-03-03] MEDS ORDERED: ROCURONIUM 10 MG/ML (5 ML VIAL) IV ONE (10:32)
[2023-03-03] MEDS ORDERED: LACTATED RINGERS 1,000 ML IV ONE (12:59)
[2023-03-03] MEDS ORDERED: HYDROmorphone 0.5 MG/0.5 ML SYRINGE IVP ONE ×3 (13:28→14:22)
[2023-03-03] MEDS ORDERED: BENZOCAINE/MENTHOL LOZENG 1 EACH LOZENGE MUCOUS MEM PRN (13:49)
[2023-03-03] MEDS ORDERED: METOCLOPRAMIDE 5 MG/ML 2 ML VIAL IVP PRN (13:49)
[2023-03-03] MEDS ORDERED: ONDANSETRON 4 MG/2 ML VIAL IVP PRN (13:49)
--- NOTE | 2023-03-03 13:57 | P.OP ---
Date of Procedure: 03/03/23 Procedure(s) Performed: PREOPERATIVE DIAGNOSIS: Colovaginal fistula POSTOPERATIVE DIAGNOSIS: Same PROCEDURE: Low anterior sigmoid resection SURGEON: James EBL: 75 mL ANESTHESIA: General COMPLICATIONS: None OPERATIVE PROCEDURE: Patient place in the operative table in the supine position. The patient was placed under general anesthesia. The patient was then placed in lithotomy. The abdomen was prepped and draped in usual sterile fashion. A vertical incision was made extending from the supraumbilical l ocation to the suprapubic location. The fascia was divided as well. The Bookwalter retractor was utilized. The sigmoid colon was fully mobilized by incising the white line of Toldt. There was significant scarring at the fistula site. Using both blunt dissection and cautery were able to mobilize the proximal sigmoid colon away from the suspected location of the cuff of the vagina. The left ureter was easily identified and preserved throughout the case. A site was chosen for division of the sigmoid colon proximally. The mesentery was divided using the LigaSure device. Dissection took place down to the proximal rectum where the tenia was noted to splay out. The proximal rectum was divided using the contour stapler. The specimen was passed off the field at that point. No signs of bleeding at either staple line was noted after irrigation. The proximal staple line was dissected using electrocautery. The pursestring device was applied just proximal to the staple line. This was then fired. The staple line was excised. A 25 EEA anvil was advanced into the lumen of the bowel. No larger size would have worked given the small lumen of the patient's colon throughout. The pursestring was then tied down appropriately. The stapler was then inserted into the anus and brought up to the staple line. The obturator was brought out just anterior to the staple line. The 2 portions of the stapler were connected to one another and subsequently tightened and fired. The bowel was clamped proximal to the anastomosis. The rigid sigmoidoscope was utilized to fill the anastomotic site nicely with air. There was saline in the pelvis at this time. No evidence of leak was seen. The abdomen was irrigated with saline. The liver, stomach, visualized colon, and small bowel appeared normal. The midline fascia was then reapproximated using 2 separate double-stranded #1 PDS sutures. The subcutaneous tissues were closed using 3-0 Vicryl sutures. The skin was then closed using amparo. Sterile dressings were then applied. DISPOSITION: Stable to recovery room
[2023-03-03] MEDS: HEPARIN SODIUM,PORCINE/PF 5,000 UNIT/0.5 ML SYRINGE SQ SCH (16:05)
[2023-03-03] MEDS: D5-0.45% NACL WITH KCL 20MEQ/L 1,000 ML IV SCH (16:05)
[2023-03-03] MEDS: FAMOTIDINE 20 MG/2 ML VIAL IV SCH (16:37)
[2023-03-03] MEDS: HYDROmorphone 1 MG/ML 1 ML SYRINGE IVP PRN (17:49)
[2023-03-03 20:37] LABS: Basophils % (A) 0 %; Eosinophils % (A) 0 %; HCT 35.9 % (34.0-46.0); HGB 12.1 gm/dL (11.4-16.0); Lymphocytes # (A) 0.5 k/uL (1.0-4.8); Lymphocytes % (A) 3 %; MCH 34.2 pg (25.0-35.0); MCHC 33.6 g/dL (31.0-37.0); MCV 101.8 fL (80.0-100.0); Macrocytosis Slight; Mean Platelet Volume 7.5; Monocytes # (A) 0.7 k/uL (0-1.0); Monocytes % (A) 5 %; Neutrophils # (A) 14.7 k/uL (1.3-7.7); Neutrophils % (A) 91 %; Platelet Count 150 k/uL (150-450); RBC 3.52 m/uL (3.80-5.40); RDW 13.3 % (11.5-15.5); WBC 16.1 k/uL (3.8-10.6)
[2023-03-03 20:44] LABS: African American GFR (CKD) >90 (>60 ml/min/1.73 sqM); Anion Gap 12 mmol/L; Blood Urea Nitrogen 16 mg/dL (7-17); Calcium 8.5 mg/dL (8.4-10.2); Carbon Dioxide 20 mmol/L (22-30); Chloride 96 mmol/L (98-107); Glucose 254 mg/dL (74-99); Non-African American GFR(CKD) 84 (>60 ml/min/1.73 sqM); Potassium 3.8 mmol/L (3.5-5.1); Sodium 128 mmol/L (137-145)
[2023-03-03] MEDS: METOPROLOL TARTRATE 50 MG TAB PO SCH (21:20)
[2023-03-03] MEDS: ALVIMOPAN 12 MG CAPSULE PO SCH (21:20)
[2023-03-03] MEDS: ATORVASTATIN 80 MG TAB PO SCH (21:20)
[2023-03-03] MEDS: MELATONIN 3 MG TABLET PO SCH (21:20)
[2023-03-03] MEDS: traZODone HCL 50 MG TAB PO SCH (21:20)
[2023-03-03] MEDS: amLODIPine 5 MG TAB PO SCH (21:22)
[2023-03-04] MEDS: HEPARIN SODIUM,PORCINE/PF 5,000 UNIT/0.5 ML SYRINGE SQ SCH ×3 (00:27→15:52)
[2023-03-04] MEDS: HYDROmorphone 1 MG/ML 1 ML SYRINGE IVP PRN ×4 (00:28→15:52)
[2023-03-04] MEDS: D5-0.45% NACL WITH KCL 20MEQ/L 1,000 ML IV SCH ×3 (02:03→22:25)
[2023-03-04] MEDS: LACTATED RINGERS 1,000 ML IV SCH (06:26)
[2023-03-04] MEDS: PANTOPRAZOLE 40 MG TABLET PO SCH (06:33)
[2023-03-04] MEDS: ASPIRIN 81 MG PO SCH (07:58)
[2023-03-04] MEDS: ALVIMOPAN 12 MG CAPSULE PO SCH ×2 (08:04→19:52)
[2023-03-04] MEDS: FUROSEMIDE 20 MG TAB PO SCH (08:04)
[2023-03-04] MEDS: METOPROLOL TARTRATE 50 MG TAB PO SCH ×2 (08:04→19:52)
[2023-03-04] MEDS: VALSARTAN 80 MG TAB PO SCH (08:04)
[2023-03-04] MEDS: FAMOTIDINE 20 MG/2 ML VIAL IV SCH ×2 (08:22→19:52)
[2023-03-04] MEDS ORDERED: CLOPIDOGREL 75 MG TAB PO SCH (09:00)
[2023-03-04 09:30] LABS: Basophils # (A) 0.1 k/uL (0-0.2); Basophils % (A) 1 %; Eosinophils # (A) 0.2 k/uL (0-0.7); Eosinophils % (A) 1 %; HCT 32.8 % (34.0-46.0); HGB 11.3 gm/dL (11.4-16.0); Lymphocytes # (A) 1.5 k/uL (1.0-4.8); Lymphocytes % (A) 13 %; MCHC 34.4 g/dL (31.0-37.0); MCV 101.6 fL (80.0-100.0); Macrocytosis Slight; Mean Platelet Volume 7.7; Monocytes # (A) 0.6 k/uL (0-1.0); Monocytes % (A) 6 %; Neutrophils # (A) 8.4 k/uL (1.3-7.7); Neutrophils % (A) 77 %; Platelet Count 139 k/uL (150-450); RBC 3.23 m/uL (3.80-5.40); WBC 10.9 k/uL (3.8-10.6)
[2023-03-04 09:44] LABS: African American GFR (CKD) >90 (>60 ml/min/1.73 sqM); Anion Gap 9 mmol/L; Blood Urea Nitrogen 13 mg/dL (7-17); Calcium 8.4 mg/dL (8.4-10.2); Carbon Dioxide 22 mmol/L (22-30); Chloride 97 mmol/L (98-107); Glucose 141 mg/dL (74-99); Non-African American GFR(CKD) 86 (>60 ml/min/1.73 sqM); Potassium 4.3 mmol/L (3.5-5.1); Sodium 128 mmol/L (137-145)
--- NOTE | 2023-03-04 12:24 | P.CRDCN ---
History of Present Illness History of present illness: HISTORY OF PRESENT ILLNESS: This is a 87-year-old female with a past medical history significant for aortic stenosis with aortic balloon valvuloplasty in November 2022, coronary artery disease with previous stenting, hypertension, and hyperlipidemia. Patient follows in the office with Dr. Rascon. We have been asked to see the patient in consultation for history of valve disease. Patient examined at the bedside. Patient underwent low anterior sigmoid resection secondary to colovaginal fistula. Postop day #1. Patient examined this morning at the bedside. She d enies chest pain or pressure. She denies shortness of breath. Vital signs are stable. The patient does have a history of aortic stenosis. She was felt to be too high risk for TAVR secondary to having colovaginal fistula and possible infection. Patient underwent aortic balloon valvuloplasty in November [address] Ivy and Dr. Thompson. * Laboratory data: WBC 10.9. Hemoglobin 11.3. The cone 139. Sodium 128. Potassium 4.3. BUN 13. Creatinine 0.51. * Current home cardiac medications include Plavix 75 mg daily, aspirin 81 mg daily, Lasix 20 mg daily, Lipitor 80 mg at night, amlodipine 5 mg at night, valsartan 80 mg daily, and metoprolol tartrate 50 mg twice a day * Most recent echocardiogram obtained in November 2022 revealed ejection fraction 55-60%, moderate LVH, moderate aortic stenosis, [id number] TR * Cardiac catheterization: October 2022 with stenting of the mid RCA REVIEW OF SYSTEMS: At the time of my exam: CONSTITUTIONAL: Denies fever or chills. HEENT: Denies blurred vision, vision changes, or eye pain. Denies hemoptysis CARDIOVASCULAR: Denies chest pain. Denies orthopnea. Denies PND. Denies palpitations RESPIRATORY: Denies shortness of breath. GASTROINTESTINAL: Denies abdominal pain. Denies nausea or vomiting. HEMATOLOGIC: Denies bleeding disorders. GENITOURINARY: Denies any blood in urine. SKIN: Denies pruitis. Denies rash. PHYSICAL EXAM: VITAL SIGNS: Reviewed. GENERAL: Well-developed in no acute distress. HEENT: Head is normocephalic. Pupils are equal, round. Sclerae anicteric. Mucous membranes of the mouth are moist. Neck supple. No JVD or thyromegaly LUNGS: Respirations even and unlabored. Lungs essentially clear to auscultation bilaterally. HEART: Regular rate and rhythm. S1 and S2 heard. Systolic murmur noted ABDOMEN: Soft. Nondistended. Nontender. EXTREMITIES: Normal range of motion. No clubbing or cyanosis. Peripheral pulses intact. No lower extremity edema NEUROLOGIC: Awake and alert. Oriented x 3. ASSESSMENT: Colovaginal fistula, status post low anterior sigmoid resection Aortic stenosis, status post aortic balloon valvuloplasty and November 2022 Coronary artery disease with stenting to the RCA, October 2022 Hypertension Hyperlipidemia PLAN: Obtain 2-D echo to assess cardiac structure and function and evaluate aortic valve Continue dual antiplatelet therapy with aspirin and Plavix secondary to recent stenting Continue additional cardiac medications Further recommendations pending patient's course Nurse practitioner note has been reviewed by physician. Signing provider agrees with the documented findings, assessment, and plan of care. Past Medical History Past Medical History: Cancer, GERD/Reflux, Hearing Disorder / Deafness, Hyperlipidemia, Hypertension Additional Past Medical History / Comment(s): diverticulitis,borderline blood sugars,had hyponatremia in May 2022 w/ admission of dizziness and weakness,aortic stenosis,ebony lower legs and feet swelling, HEART MURMUR/leaky valve, LOWER BACK PAIN, HX BREAST CA-received radiation. History of Any Multi-Drug Resistant Organisms: None Reported Past Surgical History: Back Surgery, Breast Surgery, Cholecystectomy, Hysterectomy, Tubal Ligation Additional Past Surgical History / Comment(s): LT LUMPECTOMY then later had lt mastectomy 24 yrs later. PAIN PROC., EXC EBONY CATARACTS, COLONOSCOPY Past Anesthesia/Blood Transfusion Reactions: No Reported Reaction Additional Past Anesthesia/Blood Transfusion Reaction / Comment(s): no hx blood transfusion Past Psychological History: No Psychological Hx Reported Additional Psychological History / Comment(s): Pt resides with her spouse. She does not drive, her spouse drives. Otherwise, she is independent. Smoking Status: Never smoker Past Alcohol Use History: None Reported Past Drug Use History: None Reported - Past Family History Father Family Medical History: No Reported History Additional Family Medical History / Comment(s): Father is healthy Mother Family Medical History: No Reported History Additional Family Medical History / Comment(s): Mother had bowel surgery w/ colostomy then colostomy reversed, thinks r/t diverticulitis Medications and Allergies Home Medications Medication Instructions Recorded Confirmed Type Meloxicam [Mobic] 7.5 mg PO DAILY PRN 12/28/13 03/03/23 History Calcium Carbonate/Vitamin D3 1 tab PO DAILY 10/04/14 03/03/23 History [Calcium 600-Vit D3 400 Tablet] Atorvastatin [Lipitor] 80 mg PO HS 03/14/19 03/03/23 History Multivit-Min/FA/Lycopen/Lutein 1 tab PO DAILY 03/14/19 03/03/23 History [Centrum Silver Tablet] traZODone HCL 25 mg PO HS 03/14/19 03/03/23 History Metoprolol Tartrate [Lopressor] 50 mg PO BID 02/12/21 03/03/23 History Omeprazole [PriLOSEC] 40 mg PO DAILY 12/12/21 03/03/23 History Melatonin 3 mg PO HS tab 05/12/22 03/03/23 Rx Valsartan [Diovan] 80 mg PO DAILY #30 tab 05/12/22 03/03/23 Rx polyethylene glycoL 3350 [Miralax] 17 gm PO DAILY PRN packet 05/12/22 03/03/23 Rx amLODIPine [Norvasc] 5 mg PO HS 10/23/22 03/03/23 History Aspirin 81 mg PO DAILY 10/25/22 03/03/23 History Clopidogrel [Plavix] 75 mg PO DAILY #90 tab 10/26/22 03/03/23 Rx Furosemide [Lasix] 20 mg PO DAILY 11/05/22 03/03/23 History Allergies Allergy/AdvReac Type Severity Reaction Status Date / Time No Known Allergies Allergy Verified 03/03/23 08:34 Physical Exam Vitals: Vital Signs Temp Pulse Resp BP Pulse Ox 03/04/23 08:55 96 03/04/23 07:29 97.6 F 62 16 125/65 98 03/04/23 02:00 97.7 F 65 17 125/56 98 03/03/23 19:34 97.6 F 72 16 118/52 97 03/03/23 17:10 76 169/63 99 03/03/23 17:00 81 170/63 99 03/03/23 16:45 75 159/62 99 03/03/23 16:25 77 148/64 99 03/03/23 16:10 73 130/60 98 03/03/23 15:50 77 145/63 98 03/03/23 15:00 71 16 118/51 99 03/03/23 14:45 70 16 119/53 99 03/03/23 14:30 70 16 126/58 100 03/03/23 14:14 70 16 138/60 100 03/03/23 14:02 73 16 132/55 100 03/03/23 13:57 72 16 120/49 100 03/03/23 13:49 63 16 106/47 100 03/03/23 13:34 66 16 108/49 99 03/03/23 13:19 98.1 F 75 16 124/56 100 Intake and Output 03/03/23 03/04/23 03/04/23 22:59 06:59 14:59 Intake Total 200 Output Total 250 1400 Balance -50 -1400 Intake: Oral 200 Output: Urine 250 1400 Other: Voiding Method Indwelling Catheter Weight 54.3 kg Results 03/04/23 09:21 03/04/23 09:21 CBC 03/03/23 03/04/23 Range/Units 20:13 09:21 WBC 16.1 H 10.9 H (3.8-10.6) k/uL RBC 3.52 L 3.23 L (3.80-5.40) m/uL Hgb 12.1 11.3 L (11.4-16.0) gm/dL Hct 35.9 32.8 L (34.0-46.0) % Plt Count 150 139 L (150-450) k/uL Comprehensive Metabolic Panel 03/03/23 03/04/23 Range/Units 20:13 09:21 Sodium 128 L 128 L (137-145) mmol/L Potassium 3.8 4.3 (3.5-5.1) mmol/L Chloride 96 L 97 L (98-107) mmol/L Carbon Dioxide 20 L 22 (22-30) mmol/L BUN 16 13 (7-17) mg/dL Creatinine 0.55 0.51 L (0.52-1.04) mg/dL Glucose 254 H 141 H (74-99) mg/dL Calcium 8.5 8.4 (8.4-10.2) mg/dL Current Medications Generic Name Dose Route Start Last Admin Trade Name Freq PRN Reason Stop Dose Admin Alvimopan 12 mg 03/03/23 21:00 03/04/23 08:04 Alvimopan 12 Mg Capsule PO 03/10/23 09:01 12 mg BID MIRANDA Administration Amlodipine Besylate 5 mg 03/03/23 21:00 03/03/23 21:22 Amlodipine 5 Mg Tab PO Not Given HS MIRANDA Aspirin 81 mg 03/04/23 09:00 03/04/23 07:58 Aspirin 81 Mg PO 81 mg DAILY MIRANDA Administration Atorvastatin Calcium 80 mg 03/03/23 21:00 03/03/23 21:20 Atorvastatin 80 Mg Tab PO 80 mg HS MIRANDA Administration Benzocaine/Menthol 1 each 03/03/23 13:49 Benzocaine/Menthol Lozeng 1 Each Lozenge MUCOUS MEM Q1HR PRN Sore Throat Clopidogrel Bisulfate 75 mg 03/04/23 09:00 03/04/23 08:04 Clopidogrel 75 Mg Tab PO 75 mg DAILY MIRANDA Administration Famotidine 20 mg 03/03/23 21:00 03/04/23 08:22 Famotidine 20 Mg/2 Ml Vial IV 20 mg BID MIRANDA Administration Furosemide 20 mg 03/04/23 09:00 03/04/23 08:04 Furosemide 20 Mg Tab PO 20 mg DAILY MIRANDA Administration Heparin Sodium (Porcine) 5,000 unit 03/03/23 16:00 03/04/23 08:04 Heparin Sodium,Porcine/Pf 5,000 Unit/0.5 Ml Syringe SQ 5,000 unit Q8HR MIRANDA Administration Hydromorphone HCl 1 mg 03/03/23 13:49 03/04/23 10:06 Hydromorphone 1 Mg/Ml 1 Ml Syringe IVP 1 mg Q3HR PRN Administration Severe Pain (Scale 7 to 10) Lactated Ringer's 1,000 mls @ 20 mls/hr 03/03/23 05:16 03/04/23 06:26 Lactated Ringers IV Not Given .Q24H MIRANDA Potassium Chloride/Dextrose/Sod Cl 1,000 mls @ 100 mls/hr 03/03/23 15:30 03/04/23 11:10 D5%-1/2ns-Kcl 20 Meq/L Iv Solution IV 100 mls/hr .Q10H MIRANDA Administration Lidocaine HCl 0.1 ml 03/03/23 05:16 Lidocaine 1% (10mg/Ml) For Iv Start INTRADERMA PER PROTOCOL PRN IV Start Melatonin 3 mg 03/03/23 21:00 03/03/23 21:20 Melatonin 3 Mg Tablet PO 3 mg HS MIRANDA Administration Meloxicam 7.5 mg 03/03/23 20:34 Meloxicam 7.5 Mg Tab PO DAILY PRN Pain Metoclopramide HCl 10 mg 03/03/23 13:49 Metoclopramide 5 Mg/Ml 2 Ml Vial IVP Q6HR PRN Nausea and Vomiting Metoprolol Tartrate 50 mg 03/03/23 21:00 03/04/23 08:04 Metoprolol Tartrate 50 Mg Tab PO 50 mg BID MIRANDA Administration Ondansetron HCl 4 mg 03/03/23 13:49 03/03/23 16:38 Ondansetron 4 Mg/2 Ml Vial IVP 4 mg Q6HR PRN Administration Nausea And Vomiting Pantoprazole Sodium 40 mg 03/04/23 07:30 03/04/23 06:33 Pantoprazole 40 Mg Tablet PO 40 mg [id number] MIRANDA Administration Trazodone HCl 25 mg 03/03/23 21:00 03/03/23 21:20 Trazodone Hcl 50 Mg Tab PO 25 mg HS MIRANDA Administration Valsartan 80 mg 03/04/23 09:00 03/04/23 08:04 Valsartan 80 Mg Tab PO 80 mg DAILY MIRANDA Administration Intake and Output 03/03/23 03/04/23 03/04/23 22:59 06:59 14:59 Intake Total 200 Output Total 250 1400 Balance -50 -1400 Intake: Oral 200 Output: Urine 250 1400 Other: Voiding Method Indwelling Catheter Weight 54.3 kg 03/04/23 09:21 03/04/23 09:21
--- NOTE | 2023-03-04 14:16 | P.CONS ---
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 Positive intake of clear liquids with no nausea or vomiting. Spontaneously voiding, has been up in chair. Pain controlled. Denies chest pain, palpitations or shortness of breath. Hemoglobin 9.3, platelets 139. Sodium 128. Renal function stable. Review of Systems Constitutional: Denied any fatigue denied any fever. Cardio vascular: denied any chest pain, palpitations Gastrointestinal denied any nausea vomiting Pulmonary: Denied any shortness of breath cough Neurologic denied any new focal deficits All inpatient medications were reviewed and appropriate changes in these medications as dictated in the interval history and assessment and plan. Past Medical History Past Medical History: Cancer, GERD/Reflux, Hearing Disorder / Deafness, Hyperlipidemia, Hypertension Additional Past Medical History / Comment(s): diverticulitis,borderline blood sugars,had hyponatremia in May 2022 w/ admission of dizziness and weakness,aorti c stenosis,ebony lower legs and feet swelling, HEART MURMUR/leaky valve, LOWER BACK PAIN, HX BREAST CA-received radiation. History of Any Multi-Drug Resistant Organisms: None Reported Past Surgical History: Back Surgery, Breast Surgery, Cholecystectomy, Hysterectomy, Tubal Ligation Additional Past Surgical History / Comment(s): LT LUMPECTOMY then later had lt mastectomy 24 yrs later. PAIN PROC., EXC EBONY CATARACTS, COLONOSCOPY Past Anesthesia/Blood Transfusion Reactions: No Reported Reaction Additional Past Anesthesia/Blood Transfusion Reaction / Comm: no hx blood transf usion Past Psychological History: No Psychological Hx Reported Additional Psychological History / Comment(s): Pt resides with her spouse. She does not drive, her spouse drives. Otherwise, she is independent. Smoking Status: Never smoker Past Alcohol Use History: None Reported Past Drug Use History: None Reported - Past Family History Father Family Medical History: No Reported History Additional Family Medical History / Comment(s): Father is healthy Mother Family Medical History: No Reported History Additional Family Medical History / Comment(s): Mother had bowel surgery w/ colostomy then colostomy reversed, thinks r/t diverticulitis Medications and Allergies Home Medications Medication Instructions Recorded Confirmed Type Meloxicam [Mobic] 7.5 mg PO DAILY PRN 12/28/13 03/03/23 History Calcium Carbonate/Vitamin D3 1 tab PO DAILY 10/04/14 03/03/23 History [Calcium 600-Vit D3 400 Tablet] Atorvastatin [Lipitor] 80 mg PO HS 03/14/19 03/03/23 History Multivit-Min/FA/Lycopen/Lutein 1 tab PO DAILY 03/14/19 03/03/23 History [Centrum Silver Tablet] traZODone HCL 25 mg PO HS 03/14/19 03/03/23 History Metoprolol Tartrate [Lopressor] 50 mg PO BID 02/12/21 03/03/23 History Omeprazole [PriLOSEC] 40 mg PO DAILY 12/12/21 03/03/23 History Melatonin 3 mg PO HS tab 05/12/22 03/03/23 Rx Valsartan [Diovan] 80 mg PO DAILY #30 tab 05/12/22 03/03/23 Rx polyethylene glycoL 3350 [Miralax] 17 gm PO DAILY PRN packet 05/12/22 03/03/23 Rx amLODIPine [Norvasc] 5 mg PO HS 10/23/22 03/03/23 History Aspirin 81 mg PO DAILY 10/25/22 03/03/23 History Clopidogrel [Plavix] 75 mg PO DAILY #90 tab 10/26/22 03/03/23 Rx Furosemide [Lasix] 20 mg PO DAILY 11/05/22 03/03/23 History Allergies Allergy/AdvReac Type Severity Reaction Status Date / Time No Known Allergies Allergy Verified 03/03/23 08:34 Physical Exam Vitals: Vital Signs Temp Pulse Resp BP Pulse Ox 03/04/23 08:55 96 03/04/23 07:29 97.6 F 62 16 125/65 98 03/04/23 02:00 97.7 F 65 17 125/56 98 03/03/23 19:34 97.6 F 72 16 118/52 97 03/03/23 17:10 76 169/63 99 03/03/23 17:00 81 170/63 99 03/03/23 16:45 75 159/62 99 03/03/23 16:25 77 148/64 99 03/03/23 16:10 73 130/60 98 03/03/23 15:50 77 145/63 98 03/03/23 15:00 71 16 118/51 99 03/03/23 14:45 70 16 119/53 99 03/03/23 14:30 70 16 126/58 100 03/03/23 14:14 70 16 138/60 100 03/03/23 14:02 73 16 132/55 100 03/03/23 13:57 72 16 120/49 100 03/03/23 13:49 63 16 106/47 100 03/03/23 13:34 66 16 108/49 99 03/03/23 13:19 98.1 F 75 16 124/56 100 Intake and Output 03/03/23 03/04/23 03/04/23 22:59 06:59 14:59 Intake Total 200 Output Total 250 1400 Balance -50 -1400 Intake: Oral 200 Output: Urine 250 1400 Other: Voiding Method Indwelling Catheter Weight 54.3 kg PHYSICAL EXAM: VITAL SIGNS: As above GENERAL:Thin, Sitting up in bed, no acute distress HEENT: Normocephalic Conjunctivae normal. eyes normal. NECK: Supple, No JVD. No thyroid enlargement. No LNs CARDIOVASCULAR: S1, S2 regular. Systolic murmur. RESPIRATION: Unlabored Breath sounds diminished in the bases. No rhonchi or crackles. No bronchial breathing. ABDOMEN: Soft, status post surgery binder present, LEGS: No edema. no swelling PSYCHIATRY: Alert and oriented X3, mood and affect normal. NERVOUS SYSTEM: Cranial N 2-12 grossly normal. No focal deficits. Strength and sensation grossly intact. Skin: Warm and dry, no rash Results CBC & Chem 7: 03/04/23 09:21 03/04/23 09:21 Labs: Abnormal Lab Results - Last 24 Hours (Table) 03/03/23 03/03/23 03/04/23 Range/Units 20:13 20:13 09:21 WBC 16.1 H 10.9 H (3.8-10.6) k/uL RBC 3.52 L 3.23 L (3.80-5.40) m/uL Hgb 11.3 L (11.4-16.0) gm/dL Hct 32.8 L (34.0-46.0) % MCV 101.8 H 101.6 H (80.0-100.0) fL Plt Count 139 L (150-450) k/uL Neutrophils # 14.7 H 8.4 H (1.3-7.7) k/uL Lymphocytes # 0.5 L (1.0-4.8) k/uL Sodium 128 L (137-145) mmol/L Chloride 96 L (98-107) mmol/L Carbon Dioxide 20 L (22-30) mmol/L Creatinine (0.52-1.04) mg/dL Glucose 254 H (74-99) mg/dL 03/04/23 Range/Units 09:21 WBC (3.8-10.6) k/uL RBC (3.80-5.40) m/uL Hgb (11.4-16.0) gm/dL Hct (34.0-46.0) % MCV (80.0-100.0) fL Plt Count (150-450) k/uL Neutrophils # (1.3-7.7) k/uL Lymphocytes # (1.0-4.8) k/uL Sodium 128 L (137-145) mmol/L Chloride 97 L (98-107) mmol/L Carbon Dioxide (22-30) mmol/L Creatinine 0.51 L (0.52-1.04) mg/dL Glucose 141 H (74-99) mg/dL Assessment and Plan Assessment: Colovaginal fistula ,status post low anterior sigmoid resection Hypertension Hyperlipidemia Aortic stenosis, status post aortic balloon valvuoplasty 11/24 CAD with history of stenting of RCA, 10/24 Plan:Continue on current medication, monitoring and symptomatic treatment. Echo pending. Pain management. GI prophylaxis with PPI. Anticoagulation as per cardiology/surgery. PT pending. Aggressive pulmonary toileting with incentive spirometer reinforced. Thank you for the consult. The impression and plan of care has been dictated as directed. : I performed a history and examination of this patient, discussed the same with the dictator. I agree with the dictator's note ,documented as a scribe. Any additional findings or plans will be noted.
--- NOTE | 2023-03-04 14:53 | P.PN ---
Subjective Progress Note Date: 03/04/23 CHIEF COMPLAINT: Colovaginal fistula HISTORY OF PRESENT ILLNESS: Patient is postop day #1 status post lower anterior sigmoid resection. Patient reports her pain is controlled. Denies any nausea vomiting currently. Last night she did have some nausea but it has improved. She is tolerating clear liquid diet. No bowel activity. She has known history of coronary artery disease with stents placed 3 months ago and had been on aspirin and Plavix. Patient did receive Plavix this morning. Afebrile. WBC 16 down to 10.9 Hgb 11.3 platelets 139 sodium is 128 potassium 4.3 creatinine 0.51 PHYSICAL EXAM: VITAL SIGNS: Reviewed. GENERAL: Well-developed in no acute distress. HEENT: No sclera icterus. Extraocular movements grossly intact. Moist buccal mucosa. Head is atraumatic, normocephalic. ABDOMEN: Soft. Mild tenderness at incision site. Dressing clean dry and intact NEUROLOGIC: Alert and oriented. Cranial nerves II through XII grossly intact. ASSESSMENT: 1. Colovaginal fistula status post lower anterior sigmoid resection PLAN: -Continue clear liquid diet -We'll discontinue Plavix for now due to recent surgery and risk of bleeding -Repeat labs in a.m. -Continue pain management -Encouraged patient to use incentive spirometer -Encouraged patient to increase activity level -DVT prophylaxis subcu heparin Physician Tobacco Sampler note has been reviewed by physician. Signing provider agrees with the documented findings, assessment, and plan of care. Objective - Vital Signs Vital signs: Vital Signs Temp 97.6 F 03/04/23 13:51 Pulse 60 03/04/23 13:51 Resp 17 03/04/23 13:51 BP 150/57 03/04/23 13:51 Pulse Ox 94 L 03/04/23 13:51 FiO2 Intake & Output 03/03/23 03/04/23 03/04/23 18:59 06:59 18:59 Intake Total 1150 200 Output Total 425 1400 Balance 725 -1200 Weight 54.3 kg Intake: IV 1150 Oral 200 Output: Urine 350 1400 Estimated Blood Loss 75 Other: Voiding Method Indwelling Catheter - Labs CBC & Chem 7: 03/04/23 09:21 03/04/23 09:21 Labs: Abnormal Lab Results - Last 24 Hours (Table) 03/03/23 03/03/23 03/04/23 Range/Units 20:13 20:13 09:21 WBC 16.1 H 10.9 H (3.8-10.6) k/uL RBC 3.52 L 3.23 L (3.80-5.40) m/uL Hgb 11.3 L (11.4-16.0) gm/dL Hct 32.8 L (34.0-46.0) % MCV 101.8 H 101.6 H (80.0-100.0) fL Plt Count 139 L (150-450) k/uL Neutrophils # 14.7 H 8.4 H (1.3-7.7) k/uL Lymphocytes # 0.5 L (1.0-4.8) k/uL Sodium 128 L (137-145) mmol/L Chloride 96 L (98-107) mmol/L Carbon Dioxide 20 L (22-30) mmol/L Creatinine (0.52-1.04) mg/dL Glucose 254 H (74-99) mg/dL 03/04/23 Range/Units 09:21 WBC (3.8-10.6) k/uL RBC (3.80-5.40) m/uL Hgb (11.4-16.0) gm/dL Hct (34.0-46.0) % MCV (80.0-100.0) fL Plt Count (150-450) k/uL Neutrophils # (1.3-7.7) k/uL Lymphocytes # (1.0-4.8) k/uL Sodium 128 L (137-145) mmol/L Chloride 97 L (98-107) mmol/L Carbon Dioxide (22-30) mmol/L Creatinine 0.51 L (0.52-1.04) mg/dL Glucose 141 H (74-99) mg/dL
[2023-03-04] MEDS: amLODIPine 5 MG TAB PO SCH (19:52)
[2023-03-04] MEDS: traZODone HCL 50 MG TAB PO SCH (19:52)
[2023-03-04] MEDS: ATORVASTATIN 80 MG TAB PO SCH (19:52)
[2023-03-04] MEDS: MELATONIN 3 MG TABLET PO SCH (21:58)
[2023-03-05] MEDS: HYDROmorphone 1 MG/ML 1 ML SYRINGE IVP PRN ×3 (00:53→15:23)
[2023-03-05] MEDS: HEPARIN SODIUM,PORCINE/PF 5,000 UNIT/0.5 ML SYRINGE SQ SCH ×3 (01:19→15:23)
[2023-03-05] MEDS: LACTATED RINGERS 1,000 ML IV SCH (07:03)
--- NOTE | 2023-03-05 07:08 | CA ---
Transthoracic Echo Report Name: Ana Laura Camara Age: 87 Gender: F : 1935 Exam Date: 03/04/2023 14:19 Exam Location: [facility] Ht (in): 62 Wt (lb): 119 Ordering Physician: Adriana Manzano Attending/Referring Phys: [id number], Natacha Strand Buncher [employer] German Arnold Procedure CPT: Indications: LV function, assess aortic valve Cardiac Hx: Technical Quality: Fair Contrast 1: Total Dose (mL): Contrast 2: Total Dose (mL): MEASUREMENTS (Male / Female) Normal Values 2D ECHO LV Diastolic Diameter PLAX 3.9 cm 4.2 - 5.9 / 3.9 - 5.3 cm LV Systolic Diameter PLAX 1.8 cm IVS Diastolic Thickness 1.2 cm 0.6 - 1.0 / 0.6 - 0.9 cm LVPW Diastolic Thickness 1.2 cm 0.6 - 1.0 / 0.6 - 0.9 cm LV Relative Wall Thickness 0.6 RV Internal Dim ED PLAX 2.6 cm LVOT Diameter 1.8 cm Aortic Root Diameter 2.6 cm LA Systolic Diameter LX 2.6 cm 3.0 - 4.0 / 2.7 - 3.8 cm LV Diastolic Volume MOD BP 37.9 cm??? 67 - 155 / 56 - 104 cm??? LV Systolic Volume MOD BP 11.7 cm??? 22 - 58 / 19 - 49 cm??? LV Ejection Fraction MOD BP 69.0 % >= 55 % LV Diastolic Volume MOD 4C 45.0 cm??? LV Systolic Volume MOD 4C 10.8 cm??? LV Ejection Fraction MOD 4C 76.1 % LV Diastolic Length 4C 7.2 cm LV Systolic Length 4C 5.8 cm LV Diastolic Volume MOD 2C 28.2 cm??? LV Systolic Volume MOD 2C 12.7 cm??? LV Ejection Fraction MOD 2C 55.1 % LV Diastolic Length 2C 6.4 cm LV Systolic Length 2C 5.7 cm LA Volume 50.8 cm??? 18 - 58 / 22 - 52 cm??? DOPPLER AV Peak Velocity 387.4 cm/s AV Peak Gradient 60.0 mmHg AV Mean Velocity 297.3 cm/s AV Mean Gradient 38.8 mmHg AV Velocity Time Integral 100.7 cm AI Peak Velocity 359.0 cm/s AI Peak Gradient 51.6 mmHg AI Pressure Half Time 325.0 ms LVOT Peak Velocity 117.0 cm/s LVOT Peak Gradient 5.5 mmHg LVOT Velocity Time Integral 36.1 cm LVOT Stroke Volume 90.9 cm??? LVOT Stroke Volume Index 59.3 ml/m??? AV Area Cont Eq vti 0.9 cm??? AV Area Cont Eq pk 0.8 cm??? MV Peak Velocity 169.5 cm/s MV Peak Gradient 11.5 mmHg MV Mean Velocity 92.3 cm/s MV Mean Gradient 4.2 mmHg MV Velocity Time Integral 45.3 cm MR Peak Velocity 605.7 cm/s MR Peak Gradient 146.7 mmHg Mitral E Point Velocity 137.3 cm/s Mitral A Point Velocity 153.1 cm/s Mitral E to A Ratio 0.9 MV Deceleration Time 163.1 ms MV E' Velocity 5.4 cm/s Mitral E to MV E' Ratio 25.2 TR Peak Velocity 429.5 cm/s TR Peak Gradient 73.8 mmHg Right Ventricular Systolic Press 83.9 mmHg PV Peak Velocity 115.2 cm/s PV Peak Gradient 5.3 mmHg FINDINGS Left Ventricle Normal LV size. Mild concentric LVH.left ventricular ejection fraction is estimated at 55-60 %. Normal left ventricular wall motion. Right Ventricle Normal right ventricular size. RVSP= 88 mmHg with severe pulmonary hypertension Right Atrium Normal right atrial size. Left Atrium LA Volume index = 33ml/m2 Mitral Valve Structurally normal mitral valve. Mild to moderate MR. Aortic Valve Aortic valve not well visualized. Estimated AV Area= 0.8cm2. Moderate AI. Peak gradient 60 mmHg with a mean of 39 mmHg with severe aortic stenosis Tricuspid Valve Tricuspid valve not well visualized. Moderate to severe tricuspid regurgitation. Pulmonic Valve Pulmonic valve not well visualized. Mild PI. Pericardium Normal pericardium. Aorta Normal size aortic root. CONCLUSIONS 1. Normal left ventricle size and systolic function 2. Severe pulmonary hypertension 3. Severe aortic stenosis with moderate aortic regurgitation 4. Mild to moderate mitral with moderate to severe tricuspid regurgitation Previewed by: Dr. Lorin Luo MD (Electronically Signed) Final Date: 05 March 2023 07:07
[2023-03-05] MEDS: PANTOPRAZOLE 40 MG TABLET PO SCH (07:29)
[2023-03-05 07:59] LABS: African American GFR (CKD) >90 (>60 ml/min/1.73 sqM); Anion Gap 3 mmol/L; Blood Urea Nitrogen 8 mg/dL (7-17); Calcium 8.1 mg/dL (8.4-10.2); Carbon Dioxide 28 mmol/L (22-30); Chloride 92 mmol/L (98-107); Glucose 228 mg/dL (74-99); Non-African American GFR(CKD) 86 (>60 ml/min/1.73 sqM); Potassium 5.4 mmol/L (3.5-5.1); Sodium 123 mmol/L (137-145)
[2023-03-05] MEDS: VALSARTAN 80 MG TAB PO SCH (08:20)
[2023-03-05] MEDS: ASPIRIN 81 MG PO SCH (08:20)
[2023-03-05] MEDS: METOPROLOL TARTRATE 50 MG TAB PO SCH ×2 (08:20→20:46)
[2023-03-05] MEDS: ALVIMOPAN 12 MG CAPSULE PO SCH ×2 (08:20→20:45)
[2023-03-05] MEDS: FUROSEMIDE 20 MG TAB PO SCH (08:20)
[2023-03-05] MEDS: FAMOTIDINE 20 MG/2 ML VIAL IV SCH ×2 (08:24→20:47)
[2023-03-05] MEDS: SODIUM CHLORIDE 0.9% 1,000 ML IV SCH ×2 (08:24→17:44)
[2023-03-05 08:29] LABS: HCT 29.2 % (34.0-46.0); HGB 10.6 gm/dL (11.4-16.0); MCH 36.1 pg (25.0-35.0); MCHC 36.3 g/dL (31.0-37.0); MCV 99.4 fL (80.0-100.0); Mean Platelet Volume 8.9; Platelet Count 130 k/uL (150-450); RBC 2.93 m/uL (3.80-5.40); RDW 12.8 % (11.5-15.5); WBC 10.8 k/uL (3.8-10.6)
[2023-03-05] MEDS: D5-0.45% NACL WITH KCL 20MEQ/L 1,000 ML IV SCH (08:49)
--- NOTE | 2023-03-05 10:58 | P.PN ---
Subjective HISTORY OF PRESENT ILLNESS: This is a 87-year-old female with a past medical history significant for aortic stenosis with aortic balloon valvuloplasty in November 2022, coronary artery disease with previous stenting, hypertension, and hyperlipidemia. Patient follows in the office with Dr. Rascon. We have been asked to see the patient in consultation for history of valve disease. Patient examined at the bedside. Patient underwent low anterior sigmoid resection secondary to colovaginal fistula. Postop day #1. Patient examined this morning at the bedside. She denies chest pain or pressure. She denies shortness of breath. Vital signs are stable. The patient does have a history of aortic stenosis. She was felt to be too high risk for TAVR secondary to having colovaginal fistula and possible infection. Patient underwent aortic balloon valvuloplasty in November [address] Ivy and Dr. Thompson. * Laboratory data: WBC 10.9. Hemoglobin 11.3. The cone 139. Sodium 128. Potassium 4.3. BUN 13. Creatinine 0.51. * Current home cardiac medications include Plavix 75 mg daily, aspirin 81 mg daily, Lasix 20 mg daily, Lipitor 80 mg at night, amlodipine 5 mg at night, valsartan 80 mg daily, and metoprolol tartrate 50 mg twice a day * Most recent echocardiogram obtained in November 2022 revealed ejection fraction 55-60%, moderate LVH, moderate aortic stenosis, [id number] TR * Cardiac catheterization: October 2022 with stenting of the mid RCA 03/05/2023 Examined this morning. She is sitting up in the chair. Patient's spouse is present. Patient denies chest pain or pressure. She denies shortness of breath. She does report some heartburn this morning. Echocardiogram was completed revealing ejection fraction 55-60%, severe pulmonary hypertension, [id number] mitral regurgitation, severe aortic stenosis with a peak reading of 60 mmHg and a mean of 39 mmHg, moderate to severe tricuspid regurgitation. PHYSICAL EXAM: VITAL SIGNS: Reviewed. GENERAL: Well-developed in no acute distress. HEENT: Head is normocephalic. Pupils are equal, round. Sclerae anicteric. Mucous membranes of the mouth are moist. Neck supple. No JVD or thyromegaly LUNGS: Respirations even and unlabored. Lungs essentially clear to auscultation bilaterally. HEART: Regular rate and rhythm. S1 and S2 heard. Systolic murmur noted ABDOMEN: Soft. Nondistended. Nontender. EXTREMITIES: Normal range of motion. No clubbing or cyanosis. Peripheral pulses intact. No lower extremity edema NEUROLOGIC: Awake and alert. Oriented x 3. ASSESSMENT: Colovaginal fistula, status post low anterior sigmoid resection Aortic stenosis, status post aortic balloon valvuloplasty and November 2022 Coronary artery disease with stenting to the RCA, October 2022 Hypertension Hyperlipidemia PLAN: Continue dual antiplatelet therapy with aspirin and Plavix secondary to recent stenting Continue additional cardiac medications Patient is currently stable from a cardiac standpoint with no further inpatient recommendations Patient is to follow up post discharge with her primary mechanical sound technician, Dr. Rascon and will be re-evaluated for TAVR after she heals from her surgery We will sign off. Please reconsult if needed. Nurse practitioner note has been reviewed by physician. Signing provider agrees with the documented findings, assessment, and plan of care. Objective - Vital Signs Vital signs: Vital Signs Temp 98.5 F 03/05/23 06:45 Pulse 65 03/05/23 06:45 Resp 17 03/05/23 06:45 BP 177/70 03/05/23 06:45 Pulse Ox 96 03/05/23 06:45 FiO2 Intake & Output 03/04/23 03/05/23 03/05/23 18:59 06:59 18:59 Intake Total 3200 Balance 3200 Intake: Intake, IV Titration 2400 Amount D5-0.45% NaCl with KCl 2400 20Meq/l 1,000 ml @ 100 mls/hr IV .Q10H MIRANDA Rx#: [id number] Oral 800 Other: Voiding Method Indwelling Catheter # Voids 6 1 - Labs CBC & Chem 7: 03/05/23 06:48 03/05/23 06:48 Labs: Abnormal Lab Results - Last 24 Hours (Table) 03/05/23 03/05/23 Range/Units 06:48 06:48 WBC 10.8 H (3.8-10.6) k/uL RBC 2.93 L (3.80-5.40) m/uL Hgb 10.6 L (11.4-16.0) gm/dL Hct 29.2 L (34.0-46.0) % MCH 36.1 H (25.0-35.0) pg Plt Count 130 L (150-450) k/uL Sodium 123 L (137-145) mmol/L Potassium 5.4 H (3.5-5.1) mmol/L Chloride 92 L (98-107) mmol/L Creatinine 0.50 L (0.52-1.04) mg/dL Glucose 228 H (74-99) mg/dL Calcium 8.1 L (8.4-10.2) mg/dL
--- NOTE | 2023-03-05 14:02 | P.PN ---
Subjective Progress Note Date: 03/05/23 - Chief Complaint Colovaginal fistula, S/P low anterior sigmoid resection - History of Present Illness This is an 87-year-old female with past medical history significant for CAD with previous stenting in October 2022 , aortic stenosis with aortic balloon v alvuloplasty in November, hypertension, hyperlipidemia and multiple other medical issues admitted with colovaginal fistula status post low anterior sigmoid resection, tolerated procedure well. Positive intake of clear liquids with no nausea or vomiting. Spontaneously voiding, has been up in chair. Pain controlled. Denies chest pain, palpitations or shortness of breath. Hemoglobin 9.3, platelets 139. Sodium 128. Renal function stable. 03/05/2023 Continues on Entereg. Tolerating clear liquid diet , no nausea vomiting or diarrhea. No bowel movement . Sodium decreased to 123, potassium 5.4, bicarb 28, BUN 8, creatinine 0.5. Hyperglycemic, currently on D5.45 NS. IV fluids adjusted to normal saline. Denies chest pain, palpitations or shortness of breath. Maintaining O2 sats in the high 90s on room air. Echo reporting normal LV function, severe pulmonary hypertension, severe aortic stenosis with moderate aortic regurgitation, mild to moderate mitral with moderate to severe tricuspid regurgitation. Afebrile. Objective - Vital Signs Vital signs: Vital Signs Temp 98.1 F 03/05/23 13:38 Pulse 67 03/05/23 13:38 Resp 17 03/05/23 13:38 BP 125/65 03/05/23 13:38 Pulse Ox 95 03/05/23 13:42 FiO2 Intake & Output 03/04/23 03/05/23 03/05/23 18:59 06:59 18:59 Intake Total 3200 Balance 3200 Intake: Intake, IV Titration 2400 Amount D5-0.45% NaCl with KCl 2400 20Meq/l 1,000 ml @ 100 mls/hr IV .Q10H MIRANDA Rx#: [id number] Oral 800 Other: Voiding Method Indwelling Catheter # Voids 6 1 - Exam PHYSICAL EXAM: VITAL SIGNS: As above GENERAL: Alert and oriented 3, Sitting up in chair, no acute distress HEENT: Normocephalic Conjunctivae normal. eyes normal. NECK: Supple, No JVD. CARDIOVASCULAR: S1, S2 regular. Systolic murmur. RESPIRATION: Unlabored Breath sounds diminished in the bases. ABDOMEN: Soft, status post surgery binder present, positive bowel sounds LEGS: No edema. no swelling NERVOUS SYSTEM: Cranial N 2-12 grossly normal. No focal deficits. Strength and sensation grossly intact. Skin: Warm and dry, no rash - Labs CBC & Chem 7: 03/05/23 06:48 03/05/23 06:48 Labs: Abnormal Lab Results - Last 24 Hours (Table) 03/05/23 03/05/23 Range/Units 06:48 06:48 WBC 10.8 H (3.8-10.6) k/uL RBC 2.93 L (3.80-5.40) m/uL Hgb 10.6 L (11.4-16.0) gm/dL Hct 29.2 L (34.0-46.0) % MCH 36.1 H (25.0-35.0) pg Plt Count 130 L (150-450) k/uL Sodium 123 L (137-145) mmol/L Potassium 5.4 H (3.5-5.1) mmol/L Chloride 92 L (98-107) mmol/L Creatinine 0.50 L (0.52-1.04) mg/dL Glucose 228 H (74-99) mg/dL Calcium 8.1 L (8.4-10.2) mg/dL Assessment and Plan Assessment: Colovaginal fistula ,status post low anterior sigmoid resection Hypertension Hyperlipidemia Aortic stenosis, status post aortic balloon valvuoplasty 11/24 CAD with history of stenting of RCA, 10/24 Plan:Continue on current medication, monitoring and symptomatic treatment. Dual antiplatelet therapy recommended per cardiology secondary to recent stenting - Anticoagulation as per cardiology/Gen. surgery. Maintain aggressive pulmonary toileting with incentive spirometer reinforced. Close monitoring of sodium, IV fluids adjusted, repeat labs ordered for a.m. The impression and plan of care has been dictated as directed. : I performed a history and examination of this patient, discussed the same with the dictator. I agree with the dictator's note ,documented as a scribe. Any additional findings or plans will be noted.
--- NOTE | 2023-03-05 15:17 | P.PN ---
Subjective Progress Note Date: 03/05/23 CHIEF COMPLAINT: Colovaginal fistula HISTORY OF PRESENT ILLNESS: Patient is postop day #2 status post lower anterior sigmoid resection. Patient reports her pain is controlled. She is sitting up at bedside chair. She denies any nausea or vomiting. Denies any bowel activity. Afebrile. WBC 10.8 Hgb 10.6 platelets 1:30 sodium 123 potassium is 5.4 creatinine 0.50 Her surgical dressing was saturated with blood. Surgical dressing was removed and changed PHYSICAL EXAM: VITAL SIGNS: Reviewed. GENERAL: Well-developed in no acute distress. HEENT: No sclera icterus. Extraocular movements grossly intact. Moist buccal mucosa. Head is atraumatic, normocephalic. ABDOMEN: Soft. Mild tenderness at incision site. Surgical dressing was removed. Patient did have a large blood clot in the center of the Incision. Incision was cleaned no active bleeding. No erythema. Incision was recovered. NEUROLOGIC: Alert and oriented. Cranial nerves II through XII grossly intact. ASSESSMENT: 1. 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 Continue to monitor -Change IV fluids due to hyponatremia and hyperkalemia to normal saline at 100 mL an hour -Repeat labs in a.m. -Continue pain management -Encouraged patient to use incentive spirometer -Encouraged patient to increase activity level -DVT prophylaxis subcu heparin Physician Single Stayer Operator note has been reviewed by physician. Signing provider agrees with the documented findings, assessment, and plan of care. Objective - Vital Signs Vital signs: Vital Signs Temp 98.1 F 03/05/23 13:38 Pulse 67 03/05/23 13:38 Resp 17 03/05/23 13:38 BP 125/65 03/05/23 13:38 Pulse Ox 95 03/05/23 13:42 FiO2 Intake & Output 03/04/23 03/05/23 03/05/23 18:59 06:59 18:59 Intake Total 3200 Balance 3200 Intake: Intake, IV Titration 2400 Amount D5-0.45% NaCl with KCl 2400 20Meq/l 1,000 ml @ 100 mls/hr IV .Q10H [facility] Rx#: [id number] Oral 800 Other: Voiding Method Indwelling Catheter # Voids 6 1 - Labs CBC & Chem 7: 03/05/23 06:48 03/05/23 06:48 Labs: Abnormal Lab Results - Last 24 Hours (Table) 03/05/23 03/05/23 Range/Units 06:48 06:48 WBC 10.8 H (3.8-10.6) k/uL RBC 2.93 L (3.80-5.40) m/uL Hgb 10.6 L (11.4-16.0) gm/dL Hct 29.2 L (34.0-46.0) % MCH 36.1 H (25.0-35.0) pg Plt Count 130 L (150-450) k/uL Sodium 123 L (137-145) mmol/L Potassium 5.4 H (3.5-5.1) mmol/L Chloride 92 L (98-107) mmol/L Creatinine 0.50 L (0.52-1.04) mg/dL Glucose 228 H (74-99) mg/dL Calcium 8.1 L (8.4-10.2) mg/dL
[2023-03-05] MEDS: ATORVASTATIN 80 MG TAB PO SCH (20:46)
[2023-03-05] MEDS: amLODIPine 5 MG TAB PO SCH (20:46)
[2023-03-05] MEDS: traZODone HCL 50 MG TAB PO SCH (20:46)
[2023-03-05] MEDS: MELOXICAM 7.5 MG TAB PO PRN (20:46)
[2023-03-05] MEDS: MELATONIN 3 MG TABLET PO SCH (20:47)
[2023-03-06] MEDS: LACTATED RINGERS 1,000 ML IV SCH (00:08)
[2023-03-06] MEDS: HYDROmorphone 1 MG/ML 1 ML SYRINGE IVP PRN ×3 (00:52→20:41)
[2023-03-06] MEDS: HEPARIN SODIUM,PORCINE/PF 5,000 UNIT/0.5 ML SYRINGE SQ SCH ×2 (00:53→09:19)
[2023-03-06] MEDS: SODIUM CHLORIDE 0.9% 1,000 ML IV SCH ×2 (04:28→06:18)
[2023-03-06] MEDS: PANTOPRAZOLE 40 MG TABLET PO SCH (06:18)
[2023-03-06] MEDS: FAMOTIDINE 20 MG/2 ML VIAL IV SCH ×2 (08:46→20:42)
[2023-03-06] MEDS: ASPIRIN 81 MG PO SCH (09:19)
[2023-03-06] MEDS: METOPROLOL TARTRATE 50 MG TAB PO SCH ×2 (09:19→20:41)
[2023-03-06] MEDS: VALSARTAN 80 MG TAB PO SCH (09:19)
[2023-03-06] MEDS: MELOXICAM 7.5 MG TAB PO PRN (09:19)
[2023-03-06] MEDS: FUROSEMIDE 20 MG TAB PO SCH (09:19)
[2023-03-06] MEDS: ALVIMOPAN 12 MG CAPSULE PO SCH ×2 (09:19→20:42)
[2023-03-06] MEDS: ACETAMINOPHEN IV (For NPO) 1,000 MG in EMPTY BAG 1 BAG IVPB SCH ×3 (11:38→23:59)
[2023-03-06 12:12] LABS: Basophils # (A) 0.05 X 10*3/uL (0.00-0.10); Basophils % (A) 0.7 %; Eosinophils # (A) 0.28 X 10*3/uL (0.04-0.35); Eosinophils % (A) 4.1 %; HGB 8.4 d/dL (13.0-17.0); Lymphocytes # (A) 2.17 X 10*3/uL (0.90-5.00); Lymphocytes % (A) 31.7 %; MCH 34.4 pg (27.0-32.0); MCV 98.4 FL (80.0-97.0); Mean Platelet Volume 10.2 FL (9.5-12.2); Monocytes # (A) 0.87 X 10*3/uL (0.20-1.00); Monocytes % (A) 12.7 %; NRBC Per 100 WBC 0 X 10*3/uL (0.00-0.01); Neutrophils # (A) 3.45 X 10*3/uL (1.80-7.70); Neutrophils % (A) 50.4 %; Platelet Count 134 X 10*3/uL (140-440); RBC 2.44 X 10*6/uL (4.40-5.60); RDW 12.8 % (11.5-14.5); WBC 6.85 X 10*3/uL (4.50-10.00)
--- NOTE | 2023-03-06 13:45 | P.PN ---
Subjective Progress Note Date: 03/06/23 CHIEF COMPLAINT: Colovaginal fistula HISTORY OF PRESENT ILLNESS: Patient is postop day #3 status post lower anterior sigmoid resection. Patient complaint abdominal pain mostly with movement. She's had blood oozing from her incision site again. It doesn't appear to occur or with movement. She denies any nausea vomiting. Denies any flatus. She did receive mobic and aspirin this morning. This too meds been discontinued due to the bleeding from incision site. Afebrile. WBC 6.85 Hgb has dropped from 10.6- 8.4 platelets 134 BMP pending PHYSICAL EXAM: VITAL SIGNS: Reviewed. GENERAL: Well-developed in no acute distress. ABDOMEN: Soft. Mild tenderness at incision site. That the top incision patient does have a small area of slow oozing bleeding. The dressing at the top is saturated with clot noted. NEUROLOGIC: Alert and oriented. Cranial nerves II through XII grossly intact. ASSESSMENT: 1. 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 IV Tylenol scheduled ordered for pain control -Continue IV fluids -Repeat labs in a.m. -Continue pain management -Encouraged patient to use incentive spirometer -Encouraged patient to increase activity level -DVT prophylaxis SCDs ordered Physician Sound Engineering Technician note has been reviewed by physician. Signing provider agrees with the documented findings, assessment, and plan of care. I have personally seen and examined the patient, reviewed the INTERVENTION NURSE /PAs history, exam and MDM and agree with the assessment and plan as written. Based on total visit time, I have performed more than 50% of the visit. As above: Patient has had some oozing from the incision inferior to the umbilicus. Received eloquis but that has been placed on hold. Upon examination of the incision site there is no active bleeding seen there. It seems to be old blood beneath the skin closure. Continue monitoring that area closely. Continue to hold anticoagulation. Continue clear liquids only. We'll monitor closely. Objective - Vital Signs Vital signs: Vital Signs Temp 97.6 F 03/06/23 06:50 Pulse 65 03/06/23 08:50 Resp 17 03/06/23 08:50 BP 127/61 03/06/23 06:50 Pulse Ox 96 03/06/23 09:14 FiO2 Intake & Output 03/05/23 03/06/23 03/06/23 18:59 06:59 18:59 Intake Total 1440 Balance 1440 Intake: Intake, IV Titration 1200 Amount Sodium Chloride 0.9% 1, 1200 000 ml @ 100 mls/hr IV . Q10H [facility] Rx#:[id number] Oral 240 Other: Voiding Method Indwelling Catheter Indwelling Catheter # Voids 1 1 1 - Labs CBC & Chem 7: 03/06/23 06:08 03/06/23 06:08 Labs: Abnormal Lab Results - Last 24 Hours (Table) 03/06/23 Range/Units 06:08 RBC 2.44 L (4.40-5.60) X 10*6/uL Hgb 8.4 L (13.0-17.0) d/dL Hct 24.0 L (39.6-50.0) % MCV 98.4 H (80.0-97.0) FL MCH 34.4 H (27.0-32.0) pg Plt Count 134 L (140-440) X 10*3/uL
[2023-03-06 14:25] LABS: BUN/Creat Ratio 10.17 Ratio (12.00-20.00); Blood Urea Nitrogen 6.1 mg/dL (9.0-27.0); Calcium 8.3 mg/dL (8.7-10.3); Carbon Dioxide 25.4 mmol/L (21.6-31.8); Chloride 96 mmol/L (96-109); Glucose 91 mg/dL (70-110); Potassium 4.4 mmol/L (3.5-5.5); Sodium 129 mmol/L (135-145)
--- NOTE | 2023-03-06 16:44 | P.PN ---
Subjective Progress Note Date: 03/06/23 - Chief Complaint Colovaginal fistula, S/P low anterior sigmoid resection - History of Present Illness This is an 87-year-old female with past medical history significant for CAD with previous stenting in October 2022 , aortic stenosis with aortic balloon v alvuloplasty in November, hypertension, hyperlipidemia and multiple other medical issues admitted with colovaginal fistula status post low anterior sigmoid resection, tolerated procedure well. Positive intake of clear liquids with no nausea or vomiting. Spontaneously voiding, has been up in chair. Pain controlled. Denies chest pain, palpitations or shortness of breath. Hemoglobin 9.3, platelets 139. Sodium 128. Renal function stable. 03/05/2023 Continues on Entereg. Tolerating clear liquid diet , no nausea vomiting or diarrhea. No bowel movement . Sodium decreased to 123, potassium 5.4, bicarb 28, BUN 8, creatinine 0.5. Hyperglycemic, currently on D5.45 NS. IV fluids adjusted to normal saline. Denies chest pain, palpitations or shortness of breath. Maintaining O2 sats in the high 90s on room air. Echo reporting normal LV function, severe pulmonary hypertension, severe aortic stenosis with moderate aortic regurgitation, mild to moderate mitral with moderate to severe tricuspid regurgitation. Afebrile. 03/06/23 maintained on IV fluid hydration. Tolerating clear liquid diet with no nausea vomiting or diarrhea. Denies bowel movement. Pain controlled. Plavix,aspirin remains on hold .Hemoglobin dropped from 10.6-8.4, platelets 134. Sodium 129, renal function stable. Afebrile, and WBC has normalized. Maintaining O2 sats in the mid to high 90s on room air Objective - Vital Signs Vital signs: Vital Signs Temp 97.6 F 03/06/23 06:50 Pulse 65 03/06/23 08:50 Resp 17 03/06/23 08:50 BP 127/61 03/06/23 06:50 Pulse Ox 96 03/06/23 09:14 FiO2 Intake & Output 03/05/23 03/06/23 03/06/23 18:59 06:59 18:59 Intake Total 1440 Balance 1440 Intake: Intake, IV Titration 1200 Amount Sodium Chloride 0.9% 1, 1200 000 ml @ 100 mls/hr IV . Q10H [facility] Rx#:[id number] Oral 240 Other: Voiding Method Indwelling Catheter Indwelling Catheter # Voids 1 1 1 - Exam PHYSICAL EXAM: VITAL SIGNS: As above GENERAL: Alert and oriented 3, Sitting up in chair, no acute distress HEENT: Normocephalic Conjunctivae normal. eyes normal. MMM. NECK: Supple, No JVD. CARDIOVASCULAR: S1, S2 regular. Systolic murmur. RESPIRATION: Unlabored Breath sounds diminished in the bases. ABDOMEN: Soft, status post surgery binder present, positive bowel sounds LEGS: No edema. no swelling NERVOUS SYSTEM: Cranial N 2-12 grossly normal. No focal deficits. Strength and sensation grossly intact. Skin: Warm and dry, no rash - Labs CBC & Chem 7: 03/06/23 06:08 03/06/23 06:08 Labs: Abnormal Lab Results - Last 24 Hours (Table) 03/06/23 Range/Units 06:08 RBC 2.44 L (4.40-5.60) X 10*6/uL Hgb 8.4 L (13.0-17.0) d/dL Hct 24.0 L (39.6-50.0) % MCV 98.4 H (80.0-97.0) FL MCH 34.4 H (27.0-32.0) pg Plt Count 134 L (140-440) X 10*3/uL Assessment and Plan Assessment: Colovaginal fistula ,status post low anterior sigmoid resection Anemia, postop, expected outcome, possibly dilutional Hypertension Hyperlipidemia Aortic stenosis, status post aortic balloon valvuoplasty 11/24 CAD with history of stenting of RCA, 10/24 Plan:Continue on current medication, monitoring and symptomatic treatment. Dual antiplatelet therapy recommended per cardiology secondary to recent stenting - Anticoagulation as per cardiology/Gen. surgery-remains on hold,oozy incisional site reported. Hemoglobin dropped 2 g, repeat hemoglobin level now .close monitoring of hemoglobin, electrolytes, renal function with repeat labs ordered for a.m. Aggressive pulmonary toileting with incentive spirometer reinforced. The impression and plan of care has been dictated as directed. : I performed a history and examination of this patient, discussed the same with the dictator. I agree with the dictator's note ,documented as a scribe. Any additional findings or plans will be noted.
--- NOTE | 2023-03-06 17:59 | CDI ---
Documentation Clarification Form Date: 03/06/2023 05:40:07 PM From: Taty Lechuga RN, CCDS Admit Date: 03/03/2023 08:10:00 AM Patient Name: Ana Laura Camara Visit Number: [id number] Discharge Date: ATTENTION: The Clinical Documentation Specialists (CDI) and [facility] Coding Staff appreciate your assistance in clarifying documentation. Please respond to the clarification below the line at the bottom and electronically sign. The CDI & [facility] Coding staff will review the response and follow-up if needed. Please note: Queries are made part of the Legal Health Record. If you have any questions, please contact the author of this message via ITS. Dr. Nuno Maynard Anemia, post-op, expected is documented in the progress note on 03/06/23. Additional specificity regarding the type, acuity of anemia is requested. History/Risk Factors: Cancer, GERD/Reflux, Hearing Disorder / Deafness, Hyperlipidemia, Hypertension Clinical indicators: 87-year-old female admitted with colovaginal fistula status post low anterior sigmoid resection. She is maintained on IV fluid hydration. Hemoglobin dropped from 10.6 to 8.4, platelets 134. Sodium 129, renal function stable. Hemoglobin dropped 2 g, 03/06 VS: 127/61 65 17 97.L6 96% RA Treatment: Close monitoring of hemoglobin, electrolytes, renal function with repeat labs ordered for a.m. (03/07) Please clarify the type and acuity of anemia: [ X] Acute blood loss anemia, Expected. [ ] Unable to determine. [ ] Other, please specify (Template Last Revised: September 2020) MTDD
[2023-03-06 18:03] LABS: MCH 35.8 pg (25.0-35.0); MCHC 36.5 g/dL (31.0-37.0); MCV 98.1 fL (80.0-100.0); Mean Platelet Volume 7.7; RBC 1.92 m/uL (3.80-5.40); RDW 12.7 % (11.5-15.5); WBC 5.2 k/uL (3.8-10.6)
[2023-03-06 18:04] LABS: HCT 18.8 % (34.0-46.0); HGB 6.9 gm/dL (11.4-16.0); Platelet Count 99 k/uL (150-450)
[2023-03-06] MEDS: traZODone HCL 50 MG TAB PO SCH (20:41)
[2023-03-06] MEDS: MELATONIN 3 MG TABLET PO SCH (20:42)
[2023-03-06] MEDS: amLODIPine 5 MG TAB PO SCH (20:42)
[2023-03-06] MEDS: ATORVASTATIN 80 MG TAB PO SCH (20:42)
[2023-03-07] MEDS: SODIUM CHLORIDE 0.9% 1,000 ML IV SCH (05:53)
[2023-03-07] MEDS: ACETAMINOPHEN IV (For NPO) 1,000 MG in EMPTY BAG 1 BAG IVPB SCH (06:29)
[2023-03-07] MEDS: PANTOPRAZOLE 40 MG TABLET PO SCH (06:29)
[2023-03-07] MEDS: FUROSEMIDE 20 MG TAB PO SCH (08:27)
[2023-03-07] MEDS: METOPROLOL TARTRATE 50 MG TAB PO SCH ×2 (08:27→21:46)
[2023-03-07] MEDS: ALVIMOPAN 12 MG CAPSULE PO SCH ×2 (08:27→21:45)
[2023-03-07] MEDS: VALSARTAN 80 MG TAB PO SCH (08:27)
[2023-03-07] MEDS: FAMOTIDINE 20 MG/2 ML VIAL IV SCH ×2 (08:27→21:45)
[2023-03-07] MEDS: HYDROmorphone 1 MG/ML 1 ML SYRINGE IVP PRN ×4 (08:35→21:46)
[2023-03-07 11:20] LABS: BUN/Creat Ratio 9.33 Ratio (12.00-20.00); Blood Urea Nitrogen 5.6 mg/dL (9.0-27.0); Calcium 8.4 mg/dL (8.7-10.3); Carbon Dioxide 24.2 mmol/L (21.6-31.8); Chloride 101 mmol/L (96-109); Glucose 84 mg/dL (70-110); Potassium 3.4 mmol/L (3.5-5.5); Sodium 135 mmol/L (135-145)
[2023-03-07 11:27] LABS: HCT 29.4 % (39.6-50.0); MCH 33.1 pg (27.0-32.0); MCV 97.4 FL (80.0-97.0); Mean Platelet Volume 10.3 FL (9.5-12.2); NRBC Per 100 WBC 0 X 10*3/uL (0.00-0.01); Platelet Count 134 X 10*3/uL (140-440); RBC 3.02 X 10*6/uL (4.40-5.60); RDW 14.1 % (11.5-14.5); WBC 7.14 X 10*3/uL (4.50-10.00)
--- NOTE | 2023-03-07 11:36 | P.PN ---
Subjective Progress Note Date: 03/07/23 - Chief Complaint Colovaginal fistula, S/P low anterior sigmoid resection - History of Present Illness This is an 87-year-old female with past medical history significant for CAD with previous stenting in October 2022 , aortic stenosis with aortic balloon v alvuloplasty in November, hypertension, hyperlipidemia and multiple other medical issues admitted with colovaginal fistula status post low anterior sigmoid resection, tolerated procedure well. Positive intake of clear liquids with no nausea or vomiting. Spontaneously voiding, has been up in chair. Pain controlled. Denies chest pain, palpitations or shortness of breath. Hemoglobin 9.3, platelets 139. Sodium 128. Renal function stable. 03/05/2023 Continues on Entereg. Tolerating clear liquid diet , no nausea vomiting or diarrhea. No bowel movement . Sodium decreased to 123, potassium 5.4, bicarb 28, BUN 8, creatinine 0.5. Hyperglycemic, currently on D5.45 NS. IV fluids adjusted to normal saline. Denies chest pain, palpitations or shortness of breath. Maintaining O2 sats in the high 90s on room air. Echo reporting normal LV function, severe pulmonary hypertension, severe aortic stenosis with moderate aortic regurgitation, mild to moderate mitral with moderate to severe tricuspid regurgitation. Afebrile. 03/06/23 maintained on IV fluid hydration. Tolerating clear liquid diet with no nausea vomiting or diarrhea. Denies bowel movement. Pain controlled. Plavix,aspirin remains on hold .Hemoglobin dropped from 10.6-8.4, platelets 134. Sodium 129, renal function stable. Afebrile, and WBC has normalized. Maintaining O2 sats in the mid to high 90s on room air. 03/07/2020 Hemoglobin repeated yesterday afternoon , decreased to 6.9, minimal oozing of incisional site per surgery's evaluation reported, asymptomatic, vital signs stable. Received one unit of packed RBCs, repeat hemoglobin/labs pending. Maintained on IV fluid hydration. Denies chest pain, palpitations or shortness of breath. Maintaining O2 sats in the high 90s on room air. Continues on clear liquid diets, denies nausea vomiting. No bowel movement. Pain controlled. Objective - Vital Signs Vital signs: Vital Signs Temp 97.9 F 03/07/23 07:06 Pulse 59 L 03/07/23 08:27 Resp 18 03/07/23 08:27 BP 154/64 03/07/23 07:06 Pulse Ox 99 03/07/23 07:06 FiO2 Intake & Output 03/06/23 03/07/23 03/07/23 18:59 06:59 18:59 Intake Total 310 Balance 310 Intake: Blood Product 310 Rc As-1 Unit 310 [id number] Other: Voiding Method Indwelling Catheter # Voids 1 1 - Exam PHYSICAL EXAM: VITAL SIGNS: As above GENERAL: Alert and oriented 3, lying in bed, no acute distress HEENT: Normocephalic Conjunctivae normal. eyes normal. MMM. NECK: Supple, No JVD. CARDIOVASCULAR: S1, S2 regular. Systolic murmur. RESPIRATION: Unlabored, equal air entry. Breath sounds diminished in the bases. ABDOMEN: Soft, status post surgery binder present, positive bowel sounds LEGS: No edema. no swelling NERVOUS SYSTEM: Cranial N 2-12 grossly normal. No focal deficits. Strength and sensation grossly intact. Skin: Warm and dry, no rash. - Labs CBC & Chem 7: 03/06/23 17:33 03/06/23 06:08 Labs: Abnormal Lab Results - Last 24 Hours (Table) 03/06/23 03/06/23 03/06/23 Range/Units 06:08 06:08 17:33 RBC 2.44 L 1.92 L (4.40-5.60) X 10*6/uL Hgb 8.4 L 6.9 L* D (13.0-17.0) d/dL Hct 24.0 L 18.8 L* (39.6-50.0) % MCV 98.4 H (80.0-97.0) FL MCH 34.4 H 35.8 H (27.0-32.0) pg Plt Count 134 L 99 L (140-440) X 10*3/uL Sodium 129 L (135-145) mmol/L BUN 6.1 L (9.0-27.0) mg/dL BUN/Creatinine Ratio 10.17 L (12.00-20.00) Ratio Calcium 8.3 L (8.7-10.3) mg/dL Crossmatch 03/06/23 Range/Units 19:43 RBC (4.40-5.60) X 10*6/uL Hgb (13.0-17.0) d/dL Hct (39.6-50.0) % MCV (80.0-97.0) FL MCH (27.0-32.0) pg Plt Count (140-440) X 10*3/uL Sodium (135-145) mmol/L BUN (9.0-27.0) mg/dL BUN/Creatinine Ratio (12.00-20.00) Ratio Calcium (8.7-10.3) mg/dL Crossmatch See Detail Assessment and Plan Assessment: Colovaginal fistula ,status post low anterior sigmoid resection Acute blood loss Anemia, postop, status post transfusion of 1u PRBCs. Hypertension Hyperlipidemia Aortic stenosis, status post aortic balloon valvuoplasty 11/24 CAD with history of stenting of RCA, 10/24 Plan:Continue on current medication, monitoring and symptomatic treatment. Labs pending, close monitoring of hemoglobin, electrolytes, renal function.Dual antiplatelet therapy recommended per cardiology secondary to recent stenting - Anticoagulation as per cardiology/Gen. surgery-remains on hold at this time . Maintain aggressive pulmonary toileting with incentive spirometer reinforced. The impression and plan of care has been dictated as directed. : I performed a history and examination of this patient, discussed the same with the dictator. I agree with the dictator's note ,documented as a scribe. Any additional findings or plans will be noted.
[2023-03-07] MEDS ORDERED: Potassium Replacement Protocol 1 EACH MISC MISCELLANE PRN (13:04)
[2023-03-07] MEDS ORDERED: Magnesium Replacement Protocol 1 EACH MISC MISCELLANE PRN (13:05)
[2023-03-07] MEDS ORDERED: ACETAMINOPHEN TAB 325 MG TAB PO PRN (13:56)
[2023-03-07] MEDS ORDERED: IBUPROFEN 600 MG TAB PO PRN (13:56)
--- NOTE | 2023-03-07 13:56 | P.PN ---
Subjective Progress Note Date: 03/07/23 Principal diagnosis: Diverticulitis Patient doing well today. She is ambulating in the room. Hemoglobin came back at 10 after 1 unit. Per the family labs have been obtained above the IV insertion site. Patient has had a small amount of flatus. White blood cell count normal. Objective - Vital Signs Vital signs: Vital Signs Temp 97.9 F 03/07/23 07:06 Pulse 59 L 03/07/23 08:27 Resp 18 03/07/23 08:27 BP 154/64 03/07/23 07:06 Pulse Ox 99 03/07/23 07:06 FiO2 Intake & Output 03/06/23 03/07/23 03/07/23 18:59 06:59 18:59 Intake Total 310 Balance 310 Intake: Blood Product 310 Rc As-1 Unit 310 [id number] Other: Voiding Method Indwelling Catheter # Voids 1 1 - Exam Abdomen: Soft, nondistended, mild ecchymosis along incision, no active bleeding, mild tenderness - Labs CBC & Chem 7: 03/07/23 07:10 03/07/23 07:10 Labs: Abnormal Lab Results - Last 24 Hours (Table) 03/06/23 03/06/23 03/06/23 Range/Units 06:08 17:33 19:43 RBC 1.92 L (3.80-5.40) m/uL Hgb 6.9 L* D (11.4-16.0) gm/dL Hct 18.8 L* (34.0-46.0) % MCV (80.0-97.0) FL MCH 35.8 H (25.0-35.0) pg Plt Count 99 L (150-450) k/uL Sodium 129 L (135-145) mmol/L Potassium (3.5-5.5) mmol/L BUN 6.1 L (9.0-27.0) mg/dL BUN/Creatinine Ratio 10.17 L (12.00-20.00) Ratio Calcium 8.3 L (8.7-10.3) mg/dL Crossmatch See Detail 03/07/23 03/07/23 Range/Units 07:10 07:10 RBC 3.02 L (3.80-5.40) m/uL Hgb 10.0 L (11.4-16.0) gm/dL Hct 29.4 L (34.0-46.0) % MCV 97.4 H (80.0-97.0) FL MCH 33.1 H (25.0-35.0) pg Plt Count 134 L (150-450) k/uL Sodium (135-145) mmol/L Potassium 3.4 L (3.5-5.5) mmol/L BUN 5.6 L (9.0-27.0) mg/dL BUN/Creatinine Ratio 9.33 L (12.00-20.00) Ratio Calcium 8.4 L (8.7-10.3) mg/dL Crossmatch Assessment and Plan (1) Colovaginal fistula Narrative/Plan: Patient doing well at this time. Continue increasing activity. Advance to full liquids. Monitor hemoglobin. Probable discharge tomorrow or Friday. Current Visit: Yes Status: Acute Code(s): N82.4 - OTHER FEMALE INTESTINAL- GENITAL TRACT FISTULAE SNOMED Code(s): 074011749
[2023-03-07 14:02] VITALS: BMI 21.9
[2023-03-07] MEDS: ATORVASTATIN 80 MG TAB PO SCH (21:45)
[2023-03-07] MEDS: traZODone HCL 50 MG TAB PO SCH (21:45)
[2023-03-07] MEDS: MELATONIN 3 MG TABLET PO SCH (21:45)
[2023-03-07] MEDS: amLODIPine 5 MG TAB PO SCH (21:46)
[2023-03-08] MEDS: LACTATED RINGERS 1,000 ML IV SCH ×2 (06:11→06:12)
[2023-03-08] MEDS: SODIUM CHLORIDE 0.9% 1,000 ML IV SCH ×4 (06:11→19:55)
[2023-03-08] MEDS: PANTOPRAZOLE 40 MG TABLET PO SCH (06:58)
[2023-03-08] MEDS: FUROSEMIDE 20 MG TAB PO SCH (07:51)
[2023-03-08] MEDS: METOPROLOL TARTRATE 50 MG TAB PO SCH ×2 (07:51→21:55)
[2023-03-08] MEDS: ALVIMOPAN 12 MG CAPSULE PO SCH (07:51)
[2023-03-08] MEDS: VALSARTAN 80 MG TAB PO SCH (07:52)
[2023-03-08] MEDS: FAMOTIDINE 20 MG/2 ML VIAL IV SCH ×2 (08:00→22:30)
[2023-03-08 09:10] LABS: Basophils # (A) 0.07 X 10*3/uL (0.00-0.10); Basophils % (A) 0.9 %; Eosinophils # (A) 0.35 X 10*3/uL (0.04-0.35); Eosinophils % (A) 4.6 %; HCT 27.9 % (39.6-50.0); HGB 9.5 d/dL (13.0-17.0); Lymphocytes % (A) 27.7 %; MCH 33.5 pg (27.0-32.0); MCHC 34.1 d/dL (32.0-37.0); MCV 98.2 FL (80.0-97.0); Mean Platelet Volume 9.9 FL (9.5-12.2); Monocytes % (A) 9.2 %; NRBC Per 100 WBC 0 X 10*3/uL (0.00-0.01); Neutrophils % (A) 56.9 %; Platelet Count 151 X 10*3/uL (140-440); RBC 2.84 X 10*6/uL (4.40-5.60); RDW 13.9 % (11.5-14.5); WBC 7.57 X 10*3/uL (4.50-10.00)
[2023-03-08 09:23] LABS: Blood Urea Nitrogen 4.3 mg/dL (9.0-27.0); Carbon Dioxide 25.5 mmol/L (21.6-31.8); Chloride 101 mmol/L (96-109); Glucose 82 mg/dL (70-110); Magnesium 1.1 mg/dL (1.5-2.4); Potassium 3.2 mmol/L (3.5-5.5); Sodium 137 mmol/L (135-145)
[2023-03-08] MEDS: HYDROmorphone 1 MG/ML 1 ML SYRINGE IVP PRN (11:08)
--- NOTE | 2023-03-08 11:56 | P.PN ---
Subjective Progress Note Date: 03/08/23 Principal diagnosis: elective repair rect vaginal fistula pt awake alert oriented x 3, vss afebrile in good spirits doing well Objective - Vital Signs Vital signs: Vital Signs Temp 98.7 F 03/08/23 07:15 Pulse 70 03/08/23 08:00 Resp 17 03/08/23 08:00 BP 145/69 03/08/23 07:15 Pulse Ox 97 03/08/23 08:52 FiO2 Intake & Output 03/07/23 03/08/23 03/08/23 18:59 06:59 18:59 Weight 54.3 kg Other: Voiding Method Toilet # Voids 4 1 - Exam General: [Patient awake, alert and oriented times 3. Patient in no acute distress.] HEENT: [PERRL. EOMI. No pharyngeal erythema or exudate.] Neck: [No adenopathy.] Cardiac: [Heart regular in rate and rhythm. No S3. No S4. No clicks, rubs. No murmur.] Lungs: [Clear to auscultation bilaterally.] Abdomen: [No mass. No organomegaly. Bowel sounds presnt and normoactive in all 4 quadrants.] Extremes: [No edema no cyanosis no claudication normal pulses] : Normal female genitalia Musculoskeletal: [No joint erythema, edema or tenderness.] Skin: [No rash.] Neurologic: [No lateralizing deficits. CN II - XII grossly intact.] Lymphatic: [No adenopathy.] - Labs CBC & Chem 7: 03/08/23 06:04 03/08/23 06:04 Labs: Abnormal Lab Results - Last 24 Hours (Table) 03/07/23 03/07/23 03/07/23 Range/Units 07:10 07:10 07:10 RBC 3.02 L (4.40-5.60) X 10*6/uL Hgb 10.0 L (13.0-17.0) d/dL Hct 29.4 L (39.6-50.0) % MCV 97.4 H (80.0-97.0) FL MCH 33.1 H (27.0-32.0) pg Plt Count 134 L (140-440) X 10*3/uL Potassium 3.4 L (3.5-5.5) mmol/L BUN 5.6 L (9.0-27.0) mg/dL Creatinine (0.6-1.5) mg/dL BUN/Creatinine Ratio 9.33 L (12.00-20.00) Ratio Calcium 8.4 L (8.7-10.3) mg/dL Magnesium 1.2 L (1.5-2.4) mg/dL 03/08/23 03/08/23 Range/Units 06:04 06:04 RBC 2.84 L (4.40-5.60) X 10*6/uL Hgb 9.5 L (13.0-17.0) d/dL Hct 27.9 L (39.6-50.0) % MCV 98.2 H (80.0-97.0) FL MCH 33.5 H (27.0-32.0) pg Plt Count (140-440) X 10*3/uL Potassium 3.2 L (3.5-5.5) mmol/L BUN 4.3 L (9.0-27.0) mg/dL Creatinine 0.5 L (0.6-1.5) mg/dL BUN/Creatinine Ratio 8.60 L (12.00-20.00) Ratio Calcium 8.0 L (8.7-10.3) mg/dL Magnesium 1.1 L (1.5-2.4) mg/dL Assessment and Plan (1) Colovaginal fistula Current Visit: Yes Status: Acute Code(s): N82.4 - OTHER FEMALE INTESTINAL- GENITAL TRACT FISTULAE SNOMED Code(s): 958640730 (2) Anorexia nervosa with significantly low body weight Current Visit: No Status: Acute Code(s): F50.00 - ANOREXIA NERVOSA, UNSPECIFIED SNOMED Code(s): 786387423 (3) Ataxia Current Visit: No Status: Acute Code(s): R27.0 - ATAXIA, UNSPECIFIED SNOMED Code(s): 77586031 (4) Diverticulitis of intestine with abscess Current Visit: No Status: Acute Code(s): K57.80 - DVTRCLI OF INTEST, PART UNSP, W PERF AND ABSCESS W/O BLEED SNOMED Code(s): 953388515 (5) History of left breast cancer Current Visit: No Status: Acute Code(s): Z85.3 - PERSONAL HISTORY OF MALIGNANT NEOPLASM OF BREAST SNOMED Code(s): 258916886 Plan: Status post surgical repair of enterovaginal fistula Hemoglobin stable patient doing well Currently tolerating diet Anticipate discharge home in the next 24-48 hours Time with Patient: Greater than 30
--- NOTE | 2023-03-08 16:21 | P.PN ---
Subjective Progress Note Date: 03/08/23 She denies bowel movement. She does report blood from the rectum for which she is concerned. No new abdominal pain. She reports gasey after eating oatmeal, yogurt, milk. Otherwise, discharge pending bowel movement. Patient re-assured that blood in stool may occur at least 1 week after surgery. Objective - Vital Signs Vital signs: Vital Signs Temp 98.1 F 03/08/23 14:00 Pulse 63 03/08/23 14:00 Resp 16 03/08/23 14:00 BP 146/73 03/08/23 14:00 Pulse Ox 93 L 03/08/23 14:00 FiO2 Intake & Output 03/07/23 03/08/23 03/08/23 18:59 06:59 18:59 Weight 54.3 kg Other: Voiding Method Toilet # Voids 4 1 - Labs CBC & Chem 7: 03/08/23 06:04 03/08/23 06:04 Labs: Abnormal Lab Results - Last 24 Hours (Table) 03/07/23 03/08/23 03/08/23 Range/Units 07:10 06:04 06:04 RBC 2.84 L (4.40-5.60) X 10*6/uL Hgb 9.5 L (13.0-17.0) d/dL Hct 27.9 L (39.6-50.0) % MCV 98.2 H (80.0-97.0) FL MCH 33.5 H (27.0-32.0) pg Potassium 3.2 L (3.5-5.5) mmol/L BUN 4.3 L (9.0-27.0) mg/dL Creatinine 0.5 L (0.6-1.5) mg/dL BUN/Creatinine Ratio 8.60 L (12.00-20.00) Ratio Calcium 8.0 L (8.7-10.3) mg/dL Magnesium 1.2 L 1.1 L (1.5-2.4) mg/dL
[2023-03-08] MEDS: POTASSIUM CHLORIDE ER 20 MEQ TAB.ER PO SCH ×2 (17:30→19:54)
[2023-03-08] MEDS: MAGNESIUM SULFATE-D5W PMX 1 GM in DEXTROSE/WATER 1 100ML.BAG IVPB SCH ×4 (17:30→21:54)
[2023-03-08] MEDS: ATORVASTATIN 80 MG TAB PO SCH (21:55)
[2023-03-08] MEDS: amLODIPine 5 MG TAB PO SCH (21:55)
[2023-03-08] MEDS: MELATONIN 3 MG TABLET PO SCH (21:55)
[2023-03-08] MEDS: traZODone HCL 50 MG TAB PO SCH (21:55)
[2023-03-08] MEDS: traMADol 50 MG TAB PO PRN (21:59)
[2023-03-09] MEDS: SODIUM CHLORIDE 0.9% 1,000 ML IV SCH ×2 (02:38→15:27)
[2023-03-09] MEDS: LACTATED RINGERS 1,000 ML IV SCH (02:39)
[2023-03-09 06:09] LABS: African American GFR (CKD) >90 (>60 ml/min/1.73 sqM); Anion Gap 4 mmol/L; Blood Urea Nitrogen 5 mg/dL (7-17); Carbon Dioxide 30 mmol/L (22-30); Chloride 98 mmol/L (98-107); Glucose 92 mg/dL (74-99); Non-African American GFR(CKD) 87 (>60 ml/min/1.73 sqM); Potassium 3.7 mmol/L (3.5-5.1); Sodium 132 mmol/L (137-145)
[2023-03-09] MEDS: PANTOPRAZOLE 40 MG TABLET PO SCH (06:17)
[2023-03-09] MEDS: FUROSEMIDE 20 MG TAB PO SCH (08:54)
[2023-03-09] MEDS: VALSARTAN 80 MG TAB PO SCH (08:54)
[2023-03-09] MEDS: METOPROLOL TARTRATE 50 MG TAB PO SCH (08:54)
[2023-03-09] MEDS: FAMOTIDINE 20 MG/2 ML VIAL IV SCH (09:17)
[2023-03-09] MEDS: traMADol 50 MG TAB PO PRN (13:25)
[2023-03-09 15:48] VITALS: BP 136/67; PULSE 65; RESP 15; TEMP 98.7
--- NOTE | 2023-03-09 15:54 | P.DS ---
Providers Date of admission: 03/03/23 08:10 Expected date of discharge: 03/09/23 Attending physician: Rock Ramirez Consults: 03/03/23 13:49 Consult Physician Routine Consulting Provider: Nuno Maynard Consult Reason/Comments: Medical management Do you want consulting provider notified?: Yes Primary care physician: Nuno [facility] Course: Doing well Tolerating diet FU as outpatient in 2 weeks Patient Condition at Discharge: Stable Plan - Discharge Summary New Discharge Prescriptions: New traMADol HCl [Ultram] 50 mg PO Q6H PRN #10 tab PRN Reason: Pain Continue Meloxicam [Mobic] 7.5 mg PO DAILY PRN PRN Reason: Pain Calcium Carbonate/Vitamin D3 [Calcium 600-Vit D3 400 Tablet] 1 tab PO DAILY traZODone HCL 25 mg PO HS Multivit-Min/FA/Lycopen/Lutein [Centrum Silver Tablet] 1 tab PO DAILY Atorvastatin [Lipitor] 80 mg PO HS Valsartan [Diovan] 80 mg PO DAILY #30 tab Melatonin 3 mg PO HS tab Furosemide [Lasix] 20 mg PO DAILY Metoprolol Tartrate [Lopressor] 50 mg PO BID Omeprazole [PriLOSEC] 40 mg PO DAILY polyethylene glycoL 3350 [Miralax] 17 gm PO DAILY PRN packet PRN Reason: Constipation amLODIPine [Norvasc] 5 mg PO HS Aspirin 81 mg PO DAILY Clopidogrel [Plavix] 75 mg PO DAILY #90 tab Discharge Medication List Meloxicam [Mobic] 7.5 mg PO DAILY PRN 12/28/13 [History] Calcium Carbonate/Vitamin D3 [Calcium 600-Vit D3 400 Tablet] 1 tab PO DAILY 10/04/14 [History] Atorvastatin [Lipitor] 80 mg PO HS 03/14/19 [History] Multivit-Min/FA/Lycopen/Lutein [Centrum Silver Tablet] 1 tab PO DAILY 03/14/19 [History] traZODone HCL 25 mg PO HS 03/14/19 [History] Metoprolol Tartrate [Lopressor] 50 mg PO BID 02/12/21 [History] Omeprazole [PriLOSEC] 40 mg PO DAILY 12/12/21 [History] Melatonin 3 mg PO HS tab 05/12/22 [Rx] Valsartan [Diovan] 80 mg PO DAILY #30 tab 10/09/22 [Rx] polyethylene glycoL 3350 [Miralax] 17 gm PO DAILY PRN packet 05/12/22 [Rx] amLODIPine [Norvasc] 5 mg PO HS 10/23/22 [History] Aspirin 81 mg PO DAILY 10/25/22 [History] Clopidogrel [Plavix] 75 mg PO DAILY #90 tab 10/26/22 [Rx] Furosemide [Lasix] 20 mg PO DAILY 11/05/22 [History] traMADol HCl [Ultram] 50 mg PO Q6H PRN #10 tab 03/07/23 [Rx] Follow up Appointment(s)/Referral(s): Rock Ramirez MD [Medical Doctor] - 2 Weeks Patient Instructions/Handouts: Low Fiber Diet (DC), *Surgery [facility] - Managing Your Pain After Surgery Without Opioids Activity/Diet/Wound Care/Special Instructions: Take tylenol for pain LOW FIBER DIET BE CAUTIOUS OF FOOD WITH SEEDS Discharge Disposition: HOME SELF-CARE
--- NOTE | 2023-03-13 10:51 | CDI ---
Documentation Clarification Form Date: 03/13/2023 10:32:48 AM From: Tootie Moy Phone: Admit Date: 03/03/2023 08:10:00 AM Patient Name: Ana Laura Camara Visit Number: [id number] Discharge Date: 03/09/2023 04:48:00 PM ATTENTION: The Clinical Documentation Specialists (CDI) and [facility] Coding Staff appreciate your assistance in clarifying documentation. Please respond to the clarification below the line at the bottom and electronically sign. The CDI & [facility] Coding staff will review the response and follow-up if needed. Please note: Queries are made part of the Legal Health Record. If you have any questions, please contact the author of this message via ITS. Dr. Rock Ramirez The final diagnosis of the pathology report states:Diverticulosiswith submucosalabscess,fibrosis, hemorrhage, and acute serositis consistent withruptureand/orperforation. Coding guidelines do not allow coding professionals to code based on pathology results; therefore, clarification is requested. History/risk factors: 87yo F, Colovaginal fistula, post op ABLA, HTN, HLD, s/p valvuoplasty, CADwstenting Clinical Indicators: recurrentdiverticulitis. PriorCAT scansshowed small diverticular abscessandpossibledevelopingfistula. Treatment: low anteriorsigmoid resection Please clarify if you agree with the pathology report diagnosis of [insert result/diagnosis]: [ ] Diverticulitis of large intestine with perforation and abscess with bleeding [ X ] Diverticulitisof intestine withperforation and abscess without bleeding [ ] Other (please specify) [ ] Unable to determine (Template Last Revised: October 2020) MTDD
== END 2023-03-09 16:48 | disposition home or self-care (01) | DRG 330 ==
LOC: 2ORMAIN 08:10 → 4SSUR 15:01
PROVIDERS: ADMIT Surgery; ATTEND Surgery
PROC: 0DTN0ZZ Resection of Sigmoid Colon, Open Approach (ICD-10-PCS; principal; 2023-03-03 09:40)
PROC: 30233N1 Transfusion of Nonautologous Red Blood Cells into Peripheral Vein, Percutaneous Approach (ICD-10-PCS; 2023-03-06)
DX: N82.3 Fistula of vagina to large intestine (principal); D62 Acute posthemorrhagic anemia; F50.00 Anorexia nervosa, unspecified; K57.20 Diverticulitis of large intestine with perforation and abscess without bleeding; I27.20 Pulmonary hypertension, unspecified; I10 Essential (primary) hypertension; I08.3 Combined rheumatic disorders of mitral, aortic and tricuspid valves; E78.5 Hyperlipidemia, unspecified; R73.9 Hyperglycemia, unspecified; H91.90 Unspecified hearing loss, unspecified ear; R27.0 Ataxia, unspecified; I25.10 Atherosclerotic heart disease of native coronary artery without angina pectoris; K21.9 Gastro-esophageal reflux disease without esophagitis; Z85.3 Personal history of malignant neoplasm of breast; Z92.3 Personal history of irradiation; Z90.12 Acquired absence of left breast and nipple; Z79.1 Long term (current) use of non-steroidal anti-inflammatories (NSAID); Z79.899 Other long term (current) drug therapy; Z79.02 Long term (current) use of antithrombotics/antiplatelets; Z79.82 Long term (current) use of aspirin; Z95.5 Presence of coronary angioplasty implant and graft; Z68.21 Body mass index [BMI] 21.0-21.9, adult; Z83.79 Family history of other diseases of the digestive system
CPT/HCPCS: 80048; 80053; 83735; 85025; 85027; 85610; 86850; 86900; 86901; 86920; 88307; 93306; 94760

== ENCOUNTER → 2023-06-12 | Outpatient (CLI) | payer MEDICARE, BC ==
[2023-06-12 10:22] LABS: ALT 31 U/L (4-34); African American GFR (CKD) 84 (>60 ml/min/1.73 sqM); Albumin/Globulin Ratio 1.4; Anion Gap 10 mmol/L; Blood Urea Nitrogen 22 mg/dL (7-17); Calcium 9.5 mg/dL (8.4-10.2); Carbon Dioxide 30 mmol/L (22-30); Chloride 97 mmol/L (98-107); Glucose 124 mg/dL (74-99); Non-African American GFR(CKD) 73 (>60 ml/min/1.73 sqM); Sodium 137 mmol/L (137-145); Total Bilirubin 0.8 mg/dL (0.2-1.3); Total Protein 7.3 g/dL (6.3-8.2)
[2023-06-12 10:25] LABS: Prothrombin Time 10.7 sec (10.0-12.5)
[2023-06-12 10:29] LABS: Partial Thromboplastin Time 21.1 sec (22.0-30.0)
[2023-06-12 10:37] LABS: AST 46 U/L (14-36); Albumin 4.3 g/dL (3.5-5.0); Alkaline Phosphatase 99 U/L (38-126); Potassium 4.5 mmol/L (3.5-5.1)
[2023-06-12 10:54] LABS: Magnesium 1.7 mg/dL (1.6-2.3)
[2023-06-12 11:02] LABS: NT-Pro-B-Type Natriuretic Pept 2950 pg/mL
[2023-06-12 11:31] LABS: Appearance,Urine Clear (Clear); Bacteria,Urine Rare /hpf; Bilirubin,Urine Negative (Negative); Blood,Urine Negative (Negative); Color,Urine Colorless; Glucose,Urine (UA) Negative (Negative); Ketones,Urine Negative (Negative); Leukocyte Esterase,Urine Small (Negative); Mucus,Urine Rare /hpf; Nitrite,Urine Negative (Negative); Protein,Urine Negative (Negative); RBC,Urine 2 /hpf (0-5); Specific Gravity,Urine 1.007 (1.001-1.035); Squamous Epithelial Cell,Urine 2 /hpf (0-4); Urobilinogen,Urine <2.0 mg/dL (<2.0); WBC,Urine 1 /hpf (0-5)
--- NOTE | 2023-06-12 15:19 | CT ---
EXAMINATION TYPE: CT TAVR Planning DATE OF EXAM: 06/12/2023 COMPARISON: None HISTORY: TAVR CT DLP: 2309.6 mGycm Automated exposure control for dose reduction was used. Contrast: None Technique: Axial images 0.5 mm thick sections. Study is performed with 125 mL Isovue-370 with 100 mL IV saline. Gated imaging was performed. FINDINGS: There is some mild pleural thickening along the posterior medial right lung. Series 11 image 360. Vis ualized lung windows are otherwise clear. Some calcification is noted within the thoracic aorta. Kale nary artery calcification is present. Calcification is at the aortic valve. There is some thickening at the bilateral adrenal glands. Abdominal aorta and iliac vessels and common femoral arteries appear patent. Vascularity within the neck appears unremarkable. IMPRESSION: 1. CT PERFORMED FOR PRESURGICAL EVALUATION.
[2023-06-12 17:29] LABS: Hepatitis A Antibody IgM Nonreactive; Hepatitis B Core IgM Nonreactive; Hepatitis B Surface Antigen Nonreactive; Hepatitis C IgG Antibody Nonreactive
[2023-06-12 23:15] LABS: Basophils # (A) 0.06 X 10*3/uL (0.00-0.10); Basophils % (A) 0.9 %; Crenated RBC 2+; Eosinophils # (A) 0.29 X 10*3/uL (0.04-0.35); Eosinophils % (A) 4.5 %; HCT 38.5 % (39.6-50.0); Lymphocytes # (A) 2.04 X 10*3/uL (0.90-5.00); Lymphocytes % (A) 31.5 %; MCH 35.2 pg (27.0-32.0); MCHC 33.8 g/dL (32.0-37.0); MCV 104.3 FL (80.0-97.0); Mean Platelet Volume 10.9 FL (9.5-12.2); Monocytes # (A) 0.63 X 10*3/uL (0.20-1.00); Monocytes % (A) 9.7 %; NRBC Per 100 WBC 0 X 10*3/uL (0.00-0.01); Neutrophils # (A) 3.45 X 10*3/uL (1.80-7.70); Neutrophils % (A) 53.2 %; Platelet Count 155 X 10*3/uL (140-440); RBC 3.69 X 10*6/uL (4.40-5.60); RDW 12.6 % (11.5-14.5); WBC 6.48 X 10*3/uL (4.50-10.00)
[2023-06-13 02:40] LABS: Chol/HDL Ratio 2.52 Ratio; LDL Cholesterol,Calculated 72.9 mg/dL (0.0-131.0)
== END | disposition home or self-care (01) ==
LOC: LABWHC1 08:56
PROVIDERS: ATTEND Thoracic Surgery (Cardiothoracic Vascular Surgery)
DX: Z01.812 Encounter for preprocedural laboratory examination (principal); I35.0 Nonrheumatic aortic (valve) stenosis; E87.8 Other disorders of electrolyte and fluid balance, not elsewhere classified; Z79.899 Other long term (current) drug therapy; R35.0 Frequency of micturition; Z79.01 Long term (current) use of anticoagulants; E11.9 Type 2 diabetes mellitus without complications; E78.5 Hyperlipidemia, unspecified; N28.9 Disorder of kidney and ureter, unspecified; R58 Hemorrhage, not elsewhere classified; E07.9 Disorder of thyroid, unspecified; R94.31 Abnormal electrocardiogram [ECG] [EKG]
CPT/HCPCS: 94150; 83880; 80061; 80053; 80074; 84443; 83735; 85025; 85610; 85730; 81001; 87086; 83036; 71275; 36415 ×2; 74174; 93005; Q9967

== ENCOUNTER → 2023-07-14 | Outpatient (CLI) | payer MEDICARE, BC ==
[2023-07-14 11:24] LABS: Prothrombin Time 10.6 sec (10.0-12.5)
[2023-07-14 11:31] LABS: Partial Thromboplastin Time 19.1 sec (22.0-30.0)
[2023-07-14 12:23] LABS: Basophils # (A) 0.1 k/uL (0-0.2); Basophils % (A) 1 %; Eosinophils # (A) 0.2 k/uL (0-0.7); Eosinophils % (A) 3 %; HCT 36.2 % (34.0-46.0); HGB 12.5 gm/dL (11.4-16.0); Lymphocytes # (A) 1.8 k/uL (1.0-4.8); Lymphocytes % (A) 33 %; MCHC 34.6 g/dL (31.0-37.0); MCV 101.2 fL (80.0-100.0); Mean Platelet Volume 9.2; Monocytes # (A) 0.3 k/uL (0-1.0); Monocytes % (A) 6 %; Neutrophils # (A) 2.9 k/uL (1.3-7.7); Neutrophils % (A) 53 %; Platelet Count 124 k/uL (150-450); RBC 3.57 m/uL (3.80-5.40); RDW 12.6 % (11.5-15.5); WBC 5.5 k/uL (3.8-10.6)
[2023-07-14 16:39] LABS: ALT 22 U/L (10-49); AST 31 U/L (14-35); Albumin 4.5 g/dL (3.8-4.9); Albumin/Globulin Ratio 1.88 Ratio (1.60-3.17); Alkaline Phosphatase 91 U/L (41-126); BUN/Creat Ratio 18.22 Ratio (12.00-20.00); Blood Urea Nitrogen 16.4 mg/dL (9.0-27.0); Carbon Dioxide 23.7 mmol/L (21.6-31.8); Chloride 97 mmol/L (96-109); Globulin 2.4 g/dL (1.6-3.3); Glucose 110 mg/dL (70-110); Potassium 4.6 mmol/L (3.5-5.5); Sodium 134 mmol/L (135-145); Total Bilirubin 0.4 mg/dL (0.3-1.2); Total Protein 6.9 g/dL (6.2-8.2)
== END | disposition home or self-care (01) ==
LOC: LABPAT 09:55
PROVIDERS: ATTEND Thoracic Surgery (Cardiothoracic Vascular Surgery)
DX: Z01.812 Encounter for preprocedural laboratory examination (principal); I35.0 Nonrheumatic aortic (valve) stenosis; Z79.01 Long term (current) use of anticoagulants
CPT/HCPCS: 80053; 85025; 85610; 85730; 86850; 86900; 86901

== ENCOUNTER 2023-07-16 05:36 | Inpatient (IN) | payer MEDICARE, BC ==
[~2023-07-16 05:36] MED LIST changes: -ACETAMINOPHEN TAB 500 MG TAB PO PRN; -ALVIMOPAN 12 MG CAPSULE PO PRN; -DEXAMETHASONE SOD PHOSPHATE 4 MG/ML 1 ML VIAL IV ONE; -HEPARIN SODIUM,PORCINE/PF 5,000 UNIT/0.5 ML SYRINGE SQ PRN; -HYDROmorphone 0.5 MG/0.5 ML SYRINGE IVP PRN; +LACTATED RINGERS 1,000 ML IV SCH; -LIDOCAINE 1% (10MG/ML) FOR IV START INTRADERMA PRN; -ONDANSETRON 4 MG/2 ML VIAL IVP ONE; -droPERidol 5 MG/2 ML VIAL IVP ONE; -metroNIDAZOLE-NS PMX 500 MG in SALINE 1 100ML.BAG IVPB PRN
[2023-07-16] MEDS ORDERED: SODIUM CHLORIDE 0.9% 500 ML 500 ML INTRAARTER PRN (06:00)
[2023-07-16] MEDS ORDERED: NITROGLYCERIN-D5W PMX 25 MG/250 ML BTL IV PRN (06:00)
[2023-07-16] MEDS ORDERED: LACTATED RINGERS 1,000 ML IV SCH ×2 (06:00→09:56)
[2023-07-16] MEDS ORDERED: PROTAMINE SULFATE 250 MG in EMPTY BAG 1 BAG IV PRN (06:00)
[2023-07-16] MEDS ORDERED: METOPROLOL TARTRATE 25 MG TAB PO ONE (06:00)
[2023-07-16] MEDS ORDERED: ATORVASTATIN 10 MG TAB PO ONE (06:00)
[2023-07-16] MEDS ORDERED: CLOPIDOGREL 75 MG TAB PO ONE (06:00)
[2023-07-16] MEDS ORDERED: TRANEXAMIC ACID 2,000 MG in SODIUM CHLORIDE 0.9% 80 ML IV PRN (06:00)
[2023-07-16] MEDS ORDERED: INSULIN REGULAR 100 UNIT in SODIUM CHLORIDE 0.9% 100 ML IV PRN (06:00)
[2023-07-16] MEDS ORDERED: ELECTROLYTE-A SOLUTION 1,000 ML with POTASSIUM CHLORIDE 100 MEQ, MAGNESIUM SULFATE 16 M... IV PRN ×5 (06:00)
[2023-07-16] MEDS ORDERED: ASPIRIN 325 MG TAB PO ONE (06:00)
[2023-07-16] MEDS ORDERED: CLEVIDIPINE BUTYRATE 25 MG in EMPTY BAG 1 BAG IV PRN (06:00)
[2023-07-16] MEDS ORDERED: SODIUM CHLORIDE 0.9% 1,000 ML IV ONE (06:25)
[2023-07-16 06:29] LABS: Glucose,Whole Blood 103 mg/dL (70-110)
[2023-07-16] MEDS ORDERED: HYDROmorphone 0.5 MG/0.5 ML SYRINGE IVP PRN (07:00)
[2023-07-16] MEDS ORDERED: MIDAZOLAM 2 MG/2 ML VIAL IV PRN (07:00)
[2023-07-16] MEDS ORDERED: LABETALOL 5 MG/ML VIAL MDV ONE (07:47)
[2023-07-16] MEDS ORDERED: ROCURONIUM 10 MG/ML (5 ML VIAL) IV ONE (07:47)
[2023-07-16] MEDS ORDERED: fentaNYL (PF) 50 MCG/ML 2 ML AMP ONE (07:47)
[2023-07-16] MEDS ORDERED: PROPOFOL 10 MG/ML 20 ML VIAL IV ONE (07:47)
[2023-07-16] MEDS ORDERED: LIDOCAINE 1% INJ 10MG/ML (20 ML MDV) ONE (07:47)
[2023-07-16] MEDS ORDERED: NALOXONE 0.4 MG/ML 1 ML VIAL ONE (07:47)
[2023-07-16] MEDS ORDERED: SUCCINYLCHOLINE CHLORIDE 200 MG/10 ML VIAL IV ONE (07:47)
[2023-07-16] MEDS ORDERED: PROTAMINE SULFATE 10 MG/ML 5 ML VIAL ONE (07:47)
[2023-07-16] MEDS ORDERED: GLYCOPYRROLATE 0.2 MG/ML 2 ML VIAL ONE (07:47)
[2023-07-16] MEDS ORDERED: NEOSTIGMINE 1 MG/ML 10 ML VIAL ONE (07:47)
[2023-07-16] MEDS ORDERED: MIDAZOLAM 2 MG/2 ML VIAL ONE (07:47)
[2023-07-16] MEDS ORDERED: HEPARIN SODIUM 1,000 UN/ML (10ML VL) ONE (08:53)
[2023-07-16] MEDS ORDERED: IOPAMIDOL-370 100ML BTL INJ ONE (09:00)
--- NOTE | 2023-07-16 09:55 | P.OP ---
Date of Procedure: 07/16/23 Preoperative Diagnosis: Calcific aortic stenosis Postoperative Diagnosis: Same Procedure(s) Performed: Percutaneous transfemoral transcatheter aortic valve replacement with 26 mm Medtronic evolute FX bioprosthesis Implants: 26 Evolute FX Anesthesia: GETA Surgeon: Pino Parham (Cardiovascular surgeon) Opal Miner #1: Damián Franco (First credit support specialist) Opal Miner #2: Eduardo Thompson (Second credit support specialist) Estimated Blood Loss (ml): 20 IV fluids (ml): 800 Urine output (ml): 0 Pathology: none sent Condition: stable Disposition: PACU Indications for Procedure: 87-year-old female with known tricuspid calcific aortic stenosis. Patient initially presented in the spring and at that time had multiple infections with a persistent colovesical fistula. She underwent aortic balloon valvuloplasty and subsequent repair of her colovesical fistula with resolution of her infectious processes. She has subsequently become increasingly symptomatic from recurrent and transcatheter aortic valve replacement was recommended after evaluation in the high risk valve clinic. Operative Findings: I gradient across the aortic valve, moderate aortic insufficiency preoperatively. Trivial aortic insufficiency post TAVR with excellent closure of the femoral arteries. Description of Procedure: Patient was brought to the catheterization laboratory and placed supine on the table. General anesthesia was induced. The anterior torso and bilateral groins were sterilely prepped and draped. Bilateral femoral arterial access was obtained by Dr. Franco. On the left a long 6-Cypriot sheath was placed and advanced into the descending thoracic aorta. On the right a 7-Cypriot sheath was placed and then 2 Perclose devices were placed.'s was then upsized to an 8- Cypriot sheath. Right subclavian vein puncture was performed and 8 temporary transvenous pacer was placed into the apex of the right ventricle and screwed in and tested. Was secured at its exit from the skin with 2-0 silk suture ligatures. Right femoral arterial sheath was upsized to a 14-Cypriot sheath over a stiff wire. Agent was systemically heparinized a CTs maintained greater than 250 during the procedure. Pigtail was advanced from the left femoral approach into the noncoronary sinus of Valsalva and root angiogram was obtained. Aortic valve was crossed from the right side the pigtail catheter advanced into the apex of the ventricle. Transvalvular gradients were measured. Safari wire was placed in the apex of the ventricle. A 26 mm Medtronic Evolute FX valve was loaded on the back table and brought up onto the field. It was checked under fluoroscopy. The 14-Cypriot sheath was exchanged for the valve delivery system which was advanced over the Safari wire under fluoroscopic guidance. We came around the arch across the aortic valve and then went to our deployment views. The valve was deployed under rapid ventricular pacing with deployment levels of 2 on the right and 3 on the left. The valve appeared to be somewhat underexpanded and there was moderate paravalvular leak. Valve delivery system was exchanged for the 14-Cypriot sheath. The valve was recrossed with the pigtail catheter in the Safari wire was placed back in the apex. Post dilatation of the aortic valve was performed with a 22 True balloon. ADRIANO demonstrated only trivial regurgitation and paravalvular area. Heparin was not reversed with protamine. A 14-Cypriot sheath was removed and the 2 Perclose devices were deployed with excellent hemostasis. Please angiogram demonstrated no evidence of leak. Left-sided sheath was removed and the patient was awakened and transferred to recovery in stable condition.
[2023-07-16] MEDS ORDERED: ACETAMINOPHEN TAB 325 MG TAB PO PRN (09:56)
[2023-07-16] MEDS ORDERED: ONDANSETRON 4 MG/2 ML VIAL IVP PRN (09:56)
[2023-07-16] MEDS ORDERED: IPRATROPIUM-ALBUTEROL 3 ML NEB INHALATION PRN (09:56)
[2023-07-16] MEDS ORDERED: ALBUMIN HUMAN 5% 250 ML in EMPTY BAG 1 BAG IVPB PRN (09:56)
[2023-07-16] MEDS ORDERED: Potassium Replacement Protocol 1 EACH MISC MISCELLANE PRN (09:56)
[2023-07-16] MEDS ORDERED: Magnesium Replacement Protocol 1 EACH MISC MISCELLANE PRN (09:56)
[2023-07-16] MEDS ORDERED: polyethylene glycoL 3350 17 GM POWD.PACK PO PRN (09:56)
[2023-07-16] MEDS ORDERED: oxyCODONE-APAP 5-325MG 1 EACH TAB PO PRN (09:56)
[2023-07-16 10:34] LABS: African American GFR (CKD) >90 (>60 ml/min/1.73 sqM); Anion Gap 8 mmol/L; Blood Urea Nitrogen 12 mg/dL (7-17); Carbon Dioxide 16 mmol/L (22-30); Chloride 116 mmol/L (98-107); Glucose 90 mg/dL (74-99); Non-African American GFR(CKD) >90 (>60 ml/min/1.73 sqM); Sodium 140 mmol/L (137-145)
[2023-07-16 10:36] LABS: Potassium 2.2 mmol/L (3.5-5.1)
[2023-07-16 10:37] LABS: Basophils % (A) 0 %; Eosinophils # (A) 0.2 k/uL (0-0.7); Eosinophils % (A) 3 %; HCT 25.6 % (34.0-46.0); Lymphocytes # (A) 1.3 k/uL (1.0-4.8); Lymphocytes % (A) 20 %; MCH 35.3 pg (25.0-35.0); MCHC 35.3 g/dL (31.0-37.0); Mean Platelet Volume 7.9; Monocytes # (A) 0.2 k/uL (0-1.0); Monocytes % (A) 3 %; Neutrophils # (A) 4.8 k/uL (1.3-7.7); Neutrophils % (A) 73 %; RBC 2.56 m/uL (3.80-5.40); RDW 12.7 % (11.5-15.5); WBC 6.6 k/uL (3.8-10.6)
[2023-07-16 10:38] LABS: Calcium 5.5 mg/dL (8.4-10.2)
[2023-07-16 10:41] LABS: Glucose,Whole Blood 121 mg/dL (70-110)
[2023-07-16 10:56] LABS: Platelet Count 80 k/uL (150-450)
[2023-07-16] MEDS ORDERED: POTASSIUM BICARBONATE/CIT AC 20 MEQ TABLET.EFF PO ONE (11:04)
[2023-07-16] MEDS ORDERED: CALCIUM GLUCONATE IN NACL 2 GM in SALINE 1 100ML.BAG IVPB ONE (11:07)
[2023-07-16 11:14] LABS: African American GFR (CKD) >90 (>60 ml/min/1.73 sqM); Anion Gap 11 mmol/L; Blood Urea Nitrogen 18 mg/dL (7-17); Calcium 8.7 mg/dL (8.4-10.2); Carbon Dioxide 24 mmol/L (22-30); Chloride 102 mmol/L (98-107); Glucose 123 mg/dL (74-99); Non-African American GFR(CKD) 79 (>60 ml/min/1.73 sqM); Potassium 3.7 mmol/L (3.5-5.1); Sodium 137 mmol/L (137-145)
[2023-07-16] MEDS ORDERED: POTASSIUM CHLORIDE 10 MEQ in WATER FOR INJECTION 1 100ML.BAG IVPB SCH (11:15)
--- NOTE | 2023-07-16 11:30 | XR ---
EXAMINATION TYPE: XR chest 1V portable DATE OF EXAM: 07/16/2023 COMPARISON: 06/23/2019 INDICATION: Postop cardiac surgery TECHNIQUE: Single frontal view of the chest is obtained. FINDINGS: The heart size is normal. The pulmonary vasculature is normal. The lungs are clear. No pneumothorax is evident. TAVR procedure has been performed. Electronic lead extends cardiac apex. IMPRESSION: 1. No acute pulmonary process.
[2023-07-16] MEDS ORDERED: BENZOCAINE/MENTHOL LOZENG 1 EACH LOZENGE MUCOUS MEM PRN (12:24)
--- NOTE | 2023-07-16 13:10 | P.ANPRN ---
Procedure Note - Anesthesia - ADRIANO Intraop Pre Bypass ADRIANO Intraop - Anesthesia Indication: TAVR Date of Procedure: 07/16/23 Pre-operative Diagnosis: Aortic stenosis Surgeon: Pino Parham Ejection Fraction: Normal Regional Wall Motion Abnormalities: None Left Ventricle Hypertrophy: Yes R. Ventricle Function: Normal Anatomy: Trileaflet Aortic Stenosis: Severe Aortic Regurgitation: Severe Other Findings: Vmax 4.74 m/s, Gradient max 89 mmHg, gradient mean 57 mmHg Mitral Stenosis: None Mitral Regurgitation: Mild Tricuspid Stenosis: None Tricuspid Regurgitation: Mild Pulmonic Stenosis: None Pulmonic Regurgitation: Trace R. Atrial Dilation: Yes R. Atrial PFO: No L. Atrial Dilation: Yes Aortic Dissection: No Aortic Calcification: Moderate Plural Effusion: None
--- NOTE | 2023-07-16 13:12 | P.ANPRN ---
Procedure Note - Anesthesia - ADRIANO Intraop Post Bypass ADRIANO Intraop Post Bypass Procedure Performed: TAVR Ejection Fraction: Normal Regional Wall Motion Abnormalities: None R. Ventricle Function: Normal Aortic Valve: Vmax 1.49 m/s, Gradient max 9.6 mmHg, gradient mean 4.9 mmHg Mitral Valve: Unchanged Tricuspid: Unchanged Pulmonic: Unchanged Aortic Dissection: No
--- NOTE | 2023-07-16 13:21 | P.PCN ---
Date of Procedure: 07/16/23 Operative Findings: TRANSCATHETER AORITC VALVE REPLACEMENT OPERATIVE REPORT PROCEDURE PERFORMED: 1. Percutaneous Aortic Valve Implantation using a 26 mm Evolut FX Vlave 2. Transesophageal echocardiography (performed by anesthesia) 3. Ultrasound guided access and repair of right femoral artery access site by Perclose closure device. 4. Placement of temporary pacemaker wire. 5. Aortic root angiography INDICATIONS: 1. 87 year-old with a history of severe symptomatic aortic valve stenosis. The patient was experiencing shortness of breath consistent with NYHA class II PERFORMING PHYSICIANS: 1. Damián Franco MD Interventional Cardiology. 2. Eduardo Thompson DO Interventional Cardiology 3. Pino Parham MD, MD, Cardiothoracic Surgeon. SEDATION: General anesthesia provided by anesthesia, see separate note APPROACH: Right and left femoral artery via percutaneous approach PROCEDURE DESCRIPTION: The patient was discussed at valve clinic with multidisciplinary approach with cardiothoracic surgeon as well as scrap cutter and thought better treated with TAVR. Risks, benefits, and alternatives of the procedure had been explained to the patient who understood the risks and agreed to proceed. After consents were obtained, patient was brought to the transcatheter aortic valve implantation room in the cardiac component lab tech and general anesthesia was provided by the anesthesiologist (see separate report). Once full body sterile prep was performed, right subclavian venous access was obtained and a temporary pacemaker was screwed in, performed by cardiothoracic surgery. Pacing threshholds were checked and deemed appropriate. Next the left femoral artery waw accessed using a modified Seldinger technique, ultrasound guidance and micropuncture technique. A 6 Turkmen Rabi sheath was placed in the left femoral artery. Next, a 6-Turkmen pigtail catheter was advanced into the aorta and positioned in the aortic root, aortic root angiography was performed to determine optimal deployment angle. The right femoral artery was accessed using modified Seldinger technique, micropuncture technique and under direct ultrasound guidance. Femoral angiogram was done showing access in the common femoral artery and a 6Fr sheath was placed. Next preclose technique was performed using a two Perclose. Next a 0.035 Safari wire was placed in the Aorta via a pigtail catheter. Over that the arteriotomy was serially dilated and a 14 Fr Conesus sheath was placed. Next a 6F- AL1 catheter was advanced over a wire to the aortic root. A straight wire was advanced through the catheter and used to cross the severely stenotic valve. The AL1 was then exchanged for a 6Fr pigtail catheter and pressure measurements were obtained. The 0.035 Safari wire was then positioned in the apex. Next a 26 mm Corevalve valve was advanced. The valve was then positioned across the aortic valve and confirmed with aortic root angiography. [The valve was initially partially deployed however needed repositioning and therefore was recaptured.] The valve was then deployed in proper position using slow deployment and with rapid pacing in conjuncture with aortic root angiography and ADRIANO. The delivery system was withdrawn back into the arch and an aortic root injection in conjunction with ADRIANO demonstrated moderate leak. At that point we decided to post-dilate. Quick cross about again using the pigtail catheter and then we placed a stiff wire again in the LV. Postradiation was performed using 22 mm balloon. There was trivial para valvular leak. There was no evidence of any other significant abnormalities. The preclose Perclose was then deployed in the right femoral artery and hemostasis was achieved. Subsequently we exchanged the 55 cm sheath in the left groin into 11 cm sheath and we selected the right common iliac artery and we did selective right common femoral artery angiogram which showed small extravasation of contrast controlled by manual pressure. Then selective left common femoral artery angiogram was performed before we deployed the Angio-Seal device. The procedure went with no complication. COMPLICATIONS: None RECOMMENDATIONS: The patient will be monitored in the ICU for hemodynamic and electrical stability. Patient will be on aspirin and Plavix.
[2023-07-16 14:08] VITALS: BMI 21.3
[2023-07-16] MEDS ORDERED: hydrALAZINE HCL 20 MG/ML 1 ML VIAL IVP PRN (15:22)
[2023-07-16] MEDS: METOPROLOL TARTRATE 50 MG TAB PO SCH (20:26)
[2023-07-16] MEDS ORDERED: ATORVASTATIN 40 MG TAB PO SCH (21:00)
[2023-07-16] MEDS ORDERED: traZODone HCL 50 MG TAB PO SCH (21:00)
[2023-07-16] MEDS ORDERED: SENNOSIDES-DOCUSATE SODIUM 1 EACH TAB PO SCH (21:00)
[2023-07-17] MEDS: HEPARIN SODIUM,PORCINE 5,000 UNIT/ML 1 ML VIAL SQ SCH ×2 (00:25→08:18)
[2023-07-17 05:00] LABS: Basophils % (A) 1 %; Eosinophils # (A) 0.2 k/uL (0-0.7); Eosinophils % (A) 3 %; HCT 30.6 % (34.0-46.0); HGB 10.7 gm/dL (11.4-16.0); Lymphocytes # (A) 1.8 k/uL (1.0-4.8); Lymphocytes % (A) 24 %; MCH 35.6 pg (25.0-35.0); MCHC 34.9 g/dL (31.0-37.0); MCV 102.2 fL (80.0-100.0); Mean Platelet Volume 7.5; Monocytes # (A) 0.4 k/uL (0-1.0); Monocytes % (A) 6 %; Neutrophils # (A) 4.9 k/uL (1.3-7.7); Neutrophils % (A) 65 %; Platelet Count 100 k/uL (150-450); RDW 12.2 % (11.5-15.5); WBC 7.4 k/uL (3.8-10.6)
[2023-07-17 05:19] LABS: Ionized Calcium 4.7 mg/dL (4.5-5.3)
[2023-07-17 05:30] LABS: ALT 33 U/L (4-34); AST 56 U/L (14-36); African American GFR (CKD) >90 (>60 ml/min/1.73 sqM); Albumin 3.7 g/dL (3.5-5.0); Alkaline Phosphatase 88 U/L (38-126); Anion Gap 11 mmol/L; Blood Urea Nitrogen 14 mg/dL (7-17); Calcium 9.2 mg/dL (8.4-10.2); Carbon Dioxide 24 mmol/L (22-30); Chloride 101 mmol/L (98-107); Glucose 100 mg/dL (74-99); Magnesium 1.8 mg/dL (1.6-2.3); Non-African American GFR(CKD) 81 (>60 ml/min/1.73 sqM); Potassium 4.3 mmol/L (3.5-5.1); Sodium 136 mmol/L (137-145); Total Bilirubin 0.5 mg/dL (0.2-1.3); Total Protein 6.2 g/dL (6.3-8.2)
[2023-07-17] MEDS ORDERED: PANTOPRAZOLE 40 MG TABLET PO SCH (07:30)
--- NOTE | 2023-07-17 07:34 | XR ---
EXAMINATION TYPE: XR chest 1V portable DATE OF EXAM: 07/17/2023 HISTORY: Shortness of breath. COMPARISON: 07/16/2023 TECHNIQUE: Single view of the chest is submitted. FINDINGS: Demonstrated are scattered senescent parenchymal change. There is no evidence for focal infiltrate. The heart is stable. TAVR procedure has been performed. Hilar and mediastinal structures are within normal limits. Degenerative changes are seen of the dorsal spine. IMPRESSION: 1. Chronic changes without evidence for acute pulmonary disease.
[2023-07-17] MEDS: METOPROLOL TARTRATE 50 MG TAB PO SCH (08:17)
[2023-07-17] MEDS ORDERED: MELOXICAM 7.5 MG TAB PO PRN (08:54)
[2023-07-17] MEDS ORDERED: VALSARTAN 80 MG TAB PO SCH (09:00)
[2023-07-17] MEDS ORDERED: amLODIPine 5 MG TAB PO SCH (09:00)
[2023-07-17] MEDS ORDERED: ASPIRIN 81 MG PO SCH (09:00)
[2023-07-17] MEDS ORDERED: FUROSEMIDE 20 MG TAB PO SCH (09:00)
[2023-07-17] MEDS ORDERED: CLOPIDOGREL 75 MG TAB PO SCH (09:00)
[2023-07-17] MEDS ORDERED: MAGNESIUM HYDROXIDE 2,400 MG/30 ML CUP PO PRN (09:00)
[2023-07-17] MEDS ORDERED: CALCIUM CARB-VIT D 500 MG-5 MCG TAB PO SCH (09:00)
[2023-07-17] MEDS ORDERED: MULTIVITAMINS, THERA 1 EACH TAB PO SCH (09:00)
[2023-07-17] MEDS ORDERED: bisacodyL 10 MG SUPP RECTAL PRN (09:00)
[2023-07-17 09:13] VITALS: RESP 18
[2023-07-17 12:36] VITALS: BP 133/52; PULSE 74; TEMP 98
--- NOTE | 2023-07-17 16:05 | P.DS ---
Providers Date of admission: 07/16/23 05:36 Expected date of discharge: 07/17/23 Attending physician: Damián Franco Consults: 07/16/23 06:00 Consult to Anesthesia Routine Consulting Provider: Anesthesia,Services Consult Reason/Comments: Cardiac Surgery Pre-Op 07/16/23 08:53 Consult Physician Routine Consulting Provider: Pino Parham Consult Reason/Comments: post TAVR Do you want consulting provider notified?: Already Contacted Primary care physician: Nuno Maynard Hospital Course: MEDICAL HISTORY: 1. Calcified aortic valve with severe symptomatic aortic valve stenosis, NYHA class II, previous BAV in November 2022 2. CAD status post drug-eluting stent to the RCA 3. Hypertension 4. Hyperlipidemia 5. Breast cancer status post radiation and left mastectomy 6. Colovaginal fistula status post sigmoid resection in February 2023 7. Lifelong nonsmoker 8. Left internal carotid artery stenosis 50-79% PROCEDURE: 1. Percutaneous aortic valve implantation using a 26 mm Evolute FX valve under ADRIANO and fluoroscopy guidance 2. Transesophageal echocardiography performed by anesthesia 3. Ultrasound-guided access and repair of right femoral artery access site by Perclose closure device 4. Placement of temporary pacemaker wire 5. Aortic root angiography HISTORY OF PRESENT ILLNESS: This is an 87-year-old female who follows on an outpatient basis with Dr. Maynard for primary care and Dr. Rascon for cardiology. She has a known history of severe aortic stenosis and has been symptomatic with increased exertional dyspnea as well as fatigue. She had been referred to structural heart clinic for evaluation for transcatheter aortic valve replacement after heart catheterization and transesophageal echocardiogram were completed. Echocardiography demonstrated normal systolic function with EF 55-60%, aortic valve area 0.82 cm with a peak/mean gradient 60/39 mmHg. Heart catheterization showed mid RCA stenosis 70-80% and a drug-eluting stent was placed in October of this year. After workup was completed STS risk score was calculated along with incremental risk and the patient was felt to be very high risk for surgical aortic valve replacement, therefore transcatheter aortic valve replacement was recommended. The usual course of TAVR was discussed in detail the patient, risks and benefits were reviewed, shared decision making between cardiology, surgery, and the patient/family took place, the patient's values and preferences were discussed, and the patient consented to proceed with the procedure. HOSPITAL COURSE: The patient was brought to the hospital on 07/16/23, was taken to the extended stay area, prepared in the usual fashion, and subsequently taken to the cardiac catheterization laboratory where Dr. Franco and Dr. Parham completed TAVR procedure under general anesthesia with fluoroscopy and ADRIANO. The valve was deployed under rapid ventricular pacing and proceeded without event. At the end of the procedure there was no significant gradient, hemodynamics were felt to be acceptable, and there was no evidence of significant perivalvular leak. Upon completion of the procedure the patient was extubated and was trans ferred to the cardiovascular intensive care unit where she was recovered and monitored hemodynamically. Her oxygen was titrated down, she was tolerating oral diet, her pain was controlled, follow-up TTE demonstrated normal left ventricular systolic function with EF 55%, mean gradient 6-7 mmHg, no paravalvular leak, and she was ready to be discharged to home on postoperative day #1. She received written and verbal instruction regarding her medications, activity restrictions, signs and symptoms requiring physician notification, and follow-up appointments. Patient Condition at Discharge: Stable Plan - Discharge Summary Discharge Rx Participant: No New Discharge Prescriptions: Continue Meloxicam [Mobic] 7.5 mg PO DAILY PRN PRN Reason: Pain Calcium Carbonate/Vitamin D3 [Calcium 600-Vit D3 400 Tablet] 1 tab PO DAILY traZODone HCL 50 mg PO HS Multivit-Min/FA/Lycopen/Lutein [Centrum Silver Tablet] 1 tab PO DAILY Atorvastatin [Lipitor] 40 mg PO HS Valsartan [Diovan] 80 mg PO DAILY #30 tab Furosemide [Lasix] 20 mg PO DAILY oxyCODONE-APAP 5-325MG [Percocet 5-325 mg] 1 tab PO Q8H PRN PRN Reason: Pain Metoprolol Tartrate [Lopressor] 50 mg PO BID Omeprazole [PriLOSEC] 40 mg PO DAILY polyethylene glycoL 3350 [Miralax] 17 gm PO DAILY PRN packet PRN Reason: Constipation amLODIPine [Norvasc] 5 mg PO DAILY Aspirin 81 mg PO DAILY Clopidogrel [Plavix] 75 mg PO DAILY #90 tab Discharge Medication List Meloxicam [Mobic] 7.5 mg PO DAILY PRN 12/28/13 [History] Calcium Carbonate/Vitamin D3 [Calcium 600-Vit D3 400 Tablet] 1 tab PO DAILY 10/04/14 [History] Atorvastatin [Lipitor] 40 mg PO HS 03/14/19 [History] Multivit-Min/FA/Lycopen/Lutein [Centrum Silver Tablet] 1 tab PO DAILY 03/14/19 [History] traZODone HCL 50 mg PO HS 03/14/19 [History] Metoprolol Tartrate [Lopressor] 50 mg PO BID 02/12/21 [History] Omeprazole [PriLOSEC] 40 mg PO DAILY 12/12/21 [History] Valsartan [Diovan] 80 mg PO DAILY #30 tab 05/12/22 [Rx] polyethylene glycoL 3350 [Miralax] 17 gm PO DAILY PRN packet 05/12/22 [Rx] amLODIPine [Norvasc] 5 mg PO DAILY 10/23/22 [History] Aspirin 81 mg PO DAILY 10/25/22 [History] Clopidogrel [Plavix] 75 mg PO DAILY #90 tab 10/26/22 [Rx] Furosemide [Lasix] 20 mg PO DAILY 11/05/22 [History] oxyCODONE-APAP 5-325MG [Percocet 5-325 mg] 1 tab PO Q8H PRN 07/15/23 [History] Follow up Appointment(s)/Referral(s): Skip Rascon MD [STAFF PHYSICIAN] - 07/25/23 9:00 am (Your appointment on 07/25/23 is for a groin check. You also have a 30 day post TAVR echo and appointment with Dr. Rascon 09/30/23 @ 8:15 am. You will have a 1 year post TAVR echo and appointment with Dr. Rascon, appointment to be made ) Nuno Maynard MD [Primary Care Provider] - As Needed Clinic,Structural Heart [NON-STAFF] - 09/30/23 10:00 am (Your appointment 09/30/23 is for 30 day TAVR clinic follow up. You will also have a 1 year TAVR clinic follow up to be made once coordinated with cardiology) Ambulatory/Diagnostic Orders: Basic Metabolic Panel [LAB.AMB] Location: None Selected Basic Metabolic Panel [LAB.AMB] Location: None Selected Complete Blood Count w/diff [LAB.AMB] Location: None Selected Complete Blood Count w/diff [LAB.AMB] Location: None Selected Activity/Diet/Wound Care/Special Instructions: DISCHARGE INSTRUCTIONS: 1. No driving for 1 week, or until physician gives their ok. 2. No lifting, pushing, or pulling more than 5-10 pounds for 1 week. 3. Hold both groins when you cough or sneeze for the next 2 weeks. Bruising is common, but report increased swelling, pain or fever >101F 4. Shower daily. No pool, hot tub, or bathtub for 1 week 5. No powders, lotions, ointments on incisions. 6. No straining, including for bowel movements. Use stool softner if necessary 7. Stairs are not an issue. Go slowly, using handrail and take 1 step at a time. Ambulate several times daily 8. Continue pain control per as needed orders. 9. Take only the medications listed on your discharge form 10. Eat low salt (limited to 2 grams or 2000 milligrams) daily, avoid adding salt, avoid canned/processed foods 11. Take your weight daily in the morning and record, bring with you to your follow up appointments 12. Keep all follow up appointments. You will need a valve clinic appointment at 30 days and 1 year post procedure for follow up 13. You have been referred to and are expected to begin Cardiac Rehab in [facility] oximately 4 weeks. 14. You will need antibiotics prior to any dental work, including cleanings, and any surgeries to prevent Endocarditis (bacterial infection in your heart) For any questions or concerns please call your valve coordinators: Sadie or Topher @ Discharge Disposition: HOME SELF-CARE
--- NOTE | 2023-07-18 12:27 | CA ---
Transthoracic Echo Report Name: Ana Laura Camara Age: 87 Gender: F : 1935 Exam Date: 07/17/2023 09:48 Exam Location: [facility] Ht (in): 62 Wt (lb): 116 Ordering Physician: Sadie Ortiz Attending/Referring Phys: [id number], Angel Dumpman German Arnold Procedure CPT: Indications: post TAVR Cardiac Hx: Technical Quality: Fair Contrast 1: Total Dose (mL): Contrast 2: Total Dose (mL): MEASUREMENTS (Male / Female) Normal Values 2D ECHO LV Diastolic Diameter PLAX 2.9 cm 4.2 - 5.9 / 3.9 - 5.3 cm LV Systolic Diameter PLAX 1.7 cm IVS Diastolic Thickness 0.9 cm 0.6 - 1.0 / 0.6 - 0.9 cm LVPW Diastolic Thickness 1.0 cm 0.6 - 1.0 / 0.6 - 0.9 cm LV Relative Wall Thickness 0.6 RV Internal Dim ED PLAX 2.5 cm LVOT Diameter 1.6 cm Aortic Root Diameter 1.9 cm LV Diastolic Volume MOD BP 43.2 cm??? 67 - 155 / 56 - 104 cm??? LV Systolic Volume MOD BP 7.4 cm??? 22 - 58 / 19 - 49 cm??? LV Ejection Fraction MOD BP 82.8 % >= 55 % LV Cardiac Index MOD BP 1672.6 cm???/min???m??? LV Diastolic Volume MOD 4C 42.1 cm??? LV Systolic Volume MOD 4C 6.8 cm??? LV Ejection Fraction MOD 4C 83.9 % LV Cardiac Index MOD 4C 1652.0 cm???/min???m??? LV Diastolic Length 4C 6.4 cm LV Systolic Length 4C 5.2 cm LV Diastolic Volume MOD 2C 43.6 cm??? LV Systolic Volume MOD 2C 8.2 cm??? LV Ejection Fraction MOD 2C 81.1 % LV Cardiac Index MOD 2C 1650.4 cm???/min???m??? LV Diastolic Length 2C 6.6 cm LV Systolic Length 2C 5.2 cm LA Volume 31.6 cm??? 18 - 58 / 22 - 52 cm??? LA Volume Index 20.8 cm???/m??? 16 - 28 cm???/m??? DOPPLER AV Peak Velocity 164.6 cm/s AV Peak Gradient 10.8 mmHg AV Mean Velocity 116.6 cm/s AV Mean Gradient 6.4 mmHg AV Velocity Time Integral 38.7 cm AI Peak Velocity 328.2 cm/s AI Peak Gradient 43.1 mmHg AI Pressure Half Time 695.2 ms LVOT Peak Velocity 168.5 cm/s LVOT Peak Gradient 11.4 mmHg LVOT Velocity Time Integral 34.3 cm LVOT Stroke Volume 68.1 cm??? LVOT Stroke Volume Index 44.9 ml/m??? LVOT Cardiac Index 3181.7 cm???/min???m??? AV Area Cont Eq vti 1.8 cm??? AV Area Cont Eq pk 2.0 cm??? MV Peak Velocity 148.1 cm/s MV Peak Gradient 8.8 mmHg MV Mean Velocity 82.4 cm/s MV Mean Gradient 3.3 mmHg MV Velocity Time Integral 45.9 cm Mitral E Point Velocity 89.6 cm/s Mitral A Point Velocity 128.4 cm/s Mitral E to A Ratio 0.7 MV Deceleration Time 304.9 ms MV E' Velocity 3.6 cm/s Mitral E to MV E' Ratio 24.6 TR Peak Velocity 285.5 cm/s TR Peak Gradient 32.6 mmHg Right Ventricular Systolic Press 37.6 mmHg FINDINGS Left Ventricle Normal LV size and wall thickness. Almost total LV systolic obliteration. Left ventricular ejection fraction is estimated at greater than 70 %. No obvious regional wall motion abnormalities. Right Ventricle Normal right ventricular size. RVSP= 37mmHg. Catheter/pacemaker wire in the RV cavity. Right Atrium Normal right atrial size. Catheter/pacemaker wire in the right atrial cavity. Left Atrium Normal left atrial size. LA volume index= 21ml/m2 Mitral Valve Structurally normal mitral valve. Trace MR. Aortic Valve Post TAVR. Mild perivalvular AI best noted in apical 4 chabmer view. Mean gradient 6 mmHg Tricuspid Valve Structurally normal tricuspid valve. Moderate TR. Pulmonic Valve Pulmonic valve not well visualized. Pericardium Not well visualized. Aorta Normal size aortic root. CONCLUSIONS Technically limited views. Left ventricular ejection fraction is estimated at greater than 70 %. No LVOT obstruction. No obvious regional wall motion abnormality Small LV cavity, hyperdynamic. Moderate concentric LVH Status post TAVR bioprostheticMean gradient 6 mmHg Mild perivalvular AI PPM wire in RA and RV Previewed by: Dr Osvaldo Wright (Electronically Signed) Final Date: 18 July 2023 12:26
== END 2023-07-17 14:55 | disposition home or self-care (01) | DRG 267 ==
LOC: 2ORMAIN 05:36 → 2SICU 09:43
PROVIDERS: ADMIT Internal Medicine Interventional Cardiology; ATTEND Internal Medicine Interventional Cardiology
PROC: B24BZZ4 Ultrasonography of Heart with Aorta, Transesophageal (ICD-10-PCS; 2023-07-16)
PROC: 02RF38Z Replacement of Aortic Valve with Zooplastic Tissue, Percutaneous Approach (ICD-10-PCS; principal; 2023-07-16 08:00)
PROC: B31 Imaging, Upper Arteries, Fluoroscopy (ICD-10-PCS; 2023-07-16 08:00)
DX: I08.3 Combined rheumatic disorders of mitral, aortic and tricuspid valves (principal); Z00.6 Encounter for examination for normal comparison and control in clinical research program; E78.5 Hyperlipidemia, unspecified; I10 Essential (primary) hypertension; I25.10 Atherosclerotic heart disease of native coronary artery without angina pectoris; I65.22 Occlusion and stenosis of left carotid artery; K21.9 Gastro-esophageal reflux disease without esophagitis; M19.90 Unspecified osteoarthritis, unspecified site; Z79.82 Long term (current) use of aspirin; Z79.02 Long term (current) use of antithrombotics/antiplatelets; Z79.1 Long term (current) use of non-steroidal anti-inflammatories (NSAID); Z79.899 Other long term (current) drug therapy; Z85.3 Personal history of malignant neoplasm of breast; Z92.3 Personal history of irradiation; Z95.5 Presence of coronary angioplasty implant and graft
CPT/HCPCS: 71045; 80048; 80053; 82330; 83735; 85025; 85347; 93306; 93312; 93320; 93325

== ENCOUNTER 2023-08-29 18:14 | Emergency (ER) | payer MEDICARE, BC ==
--- NOTE | 2023-08-29 19:16 | ED ---
Recheck HPI - General Chief Complaint: Nausea/Vomiting/Diarrhea Stated Complaint: Black Bowel for over 1wk Time Seen by Provider: 08/29/23 18:45 Source: patient, RN notes reviewed, old records reviewed, Caregiver Mode of arrival: ambulatory Limitations: no limitations - History of Present Illness Initial Comments: This is a 87-year-old female with concern for dark stools. Patient has had black stool since starting stool medications and bowel relaxing medications. Patient was told by friends and family that this could be blood she became very concerned. She does not feel lightheaded dizzy or weak she is not on blood thinners and has no other complaints MD Complaint: other (Dark stools) -: days(s) Symptoms Since Prior Visit: no new symptoms Associated Symptoms: none Treatments Prior to Arrival: other (0) - Related Data Home Medications Medication Instructions Recorded Confirmed Meloxicam [Mobic] 7.5 mg PO DAILY PRN 12/28/13 07/16/23 Calcium Carbonate/Vitamin D3 1 tab PO DAILY 10/04/14 07/16/23 [Calcium 600-Vit D3 400 Tablet] Atorvastatin [Lipitor] 40 mg PO HS 03/14/19 07/16/23 Multivit-Min/FA/Lycopen/Lutein 1 tab PO DAILY 03/14/19 07/16/23 [Centrum Silver Tablet] traZODone HCL 50 mg PO HS 03/14/19 07/16/23 Metoprolol Tartrate [Lopressor] 50 mg PO BID 02/12/21 07/16/23 Omeprazole [PriLOSEC] 40 mg PO DAILY 12/12/21 07/16/23 amLODIPine [Norvasc] 5 mg PO DAILY 10/23/22 07/16/23 Aspirin 81 mg PO DAILY 10/25/22 07/16/23 Furosemide [Lasix] 20 mg PO DAILY 11/05/22 07/16/23 oxyCODONE-APAP 5-325MG [Percocet 1 tab PO Q8H PRN 07/15/23 07/16/23 5-325 mg] Previous Rx's Medication Instructions Recorded Valsartan [Diovan] 80 mg PO DAILY #30 tab 05/12/22 polyethylene glycoL 3350 [Miralax] 17 gm PO DAILY PRN packet 05/12/22 Clopidogrel [Plavix] 75 mg PO DAILY #90 tab 10/26/22 Allergies Allergy/AdvReac Type Severity Reaction Status Date / Time No Known Allergies Allergy Verified 08/29/23 18:41 Review of Systems ROS Statement: Those systems with pertinent positive or pertinent negative responses have been documented in the HPI. ROS Other: All systems not noted in ROS Statement are negative. Past Medical History Past Medical History: Cancer, GERD/Reflux, Hearing Disorder / Deafness, Hyperlipidemia, Hypertension, Osteoarthritis (OA) Additional Past Medical History / Comment(s): diverticulitis, had hyponatremia in May 2022 w/ admission of dizziness and weakness,aortic stenosis, HEART MURMUR/leaky valve, LOWER BACK PAIN & right hip pain, HX BREAST CA-received radiation. History of Any Multi-Drug Resistant Organisms: None Reported Past Surgical History: Back Surgery, Bowel Resection, Breast Surgery, Cholecystectomy, Hysterectomy, Tubal Ligation Additional Past Surgical History / Comment(s): LT LUMPECTOMY then later had lt mastectomy 24 yrs later. PAIN PROC., EXC EBONY CATARACTS, COLONOSCOPY, low anterior colon resection 02/23 Past Anesthesia/Blood Transfusion Reactions: No Reported Reaction Additional Past Anesthesia/Blood Transfusion Reaction / Comment(s): no hx. of transfusion reaction Past Psychological History: No Psychological Hx Reported Smoking Status: Never smoker - Past Family History Father Family Medical History: No Reported History Additional Family Medical History / Comment(s): Father is healthy Mother Family Medical History: No Reported History Additional Family Medical History / Comment(s): Mother had bowel surgery w/ colostomy then colostomy reversed, thinks r/t diverticulitis General Exam Limitations: no limitations General appearance: alert, in no apparent distress Head exam: Present: atraumatic, normocephalic, normal inspection Eye exam: Present: normal appearance, PERRL, EOMI. Absent: scleral icterus, conjunctival injection, periorbital swelling ENT exam: Present: normal exam, mucous membranes moist Neck exam: Present: normal inspection. Absent: tenderness, meningismus, lymphadenopathy Respiratory exam: Present: normal lung sounds bilaterally. Absent: respiratory distress, wheezes, rales, rhonchi, stridor Cardiovascular Exam: Present: regular rate, normal rhythm, normal heart sounds. Absent: systolic murmur, diastolic murmur, rubs, gallop, clicks GI/Abdominal exam: Present: soft, normal bowel sounds. Absent: distended, ten derness, guarding, rebound, rigid Extremities exam: Present: normal inspection, full ROM, normal capillary refill. Absent: tenderness, pedal edema, joint swelling, calf tenderness Back exam: Present: normal inspection Neurological exam: Present: alert, oriented X3, CN II-XII intact Psychiatric exam: Present: normal affect, normal mood Skin exam: Present: warm, dry, intact, normal color. Absent: rash Course Vital Signs 08/29/23 08/29/23 08/29/23 18:34 19:44 20:00 Temperature 98.1 F Pulse Rate 74 70 68 Respiratory 18 18 16 Rate Blood Pressure 202/69 168/69 176/68 O2 Sat by Pulse 96 97 96 Oximetry 08/29/23 20:17 Temperature 98.7 F Pulse Rate 65 Respiratory 12 Rate Blood Pressure 168/67 O2 Sat by Pulse 98 Oximetry - Reevaluation(s) Reevaluation #1: Medical records reviewed Reevaluation #2: Patient symptoms improved Reevaluation #3: Patient informed of results and questions answered Reevaluation #4: Was pt. sent in by a medical professional or institution (, PA, VALVE TESTER, urgent care, hospital, or penitentiary...) When possible be specific @ -no Did you speak to anyone other than the patient for history (EMS, parent, family, police, friend...)? What history was obtained from this source @ -no Did you review nursing and triage notes (agree or disagree)? Why? @ -agree Are old charts reviewed (outside hosp., previous admission, EMS record, old EKG, old radiological studies, urgent care reports/EKG's, penitentiary records)? Report findings @ -yes Differential Diagnosis (chest pain, altered mental status, abdominal pain women, abdominal pain men, vaginal bleeding, weakness, fever, dyspnea, syncope, headache, dizziness, GI bleed, back pain, seizure, CVA, palpatations, mental health, musculoskeletal)? @ -prior EKG interpreted by me (3pts min.). @ -no X-rays interpreted by me (1pt min.). @ -no CT interpreted by me (1pt min.). @ -no U/S interpreted by me (1pt. min.). @ -no What testing was considered but not performed or refused? (CT, X-rays, U/S, labs)? Why? @ -none What meds were considered but not given or refused? Why? @ -none Did you discuss the management of the patient with other professionals (professionals i.e. , PA, VALVE TESTER, lab, RT, psych nurse, bilingual social worker, time lock expert, teacher, financial compliance officer, case resolution specialist)? Give summary @ -no Was smoking cessation discussed for >3mins.? @ -no Was critical care preformed (if so, how long)? @ -no Were there social determinants of health that impacted care today? How? (H omelessness, low income, unemployed, alcoholism, drug addiction, transportation, low edu. Level, literacy, decrease access to med. care, detention, rehab)? @ -none Was there de-escalation of care discussed even if they declined (Discuss DNR or withdrawal of care, Hospice)? DNR status @ -no What co-morbidities impacted this encounter? (DM, HTN, Smoking, COPD, CAD, Cancer, CVA, ARF, Chemo, Hep., AIDS, mental health diagnosis, sleep apnea, morbid obesity)? @ -none Was patient admitted / discharged? Hospital course, mention meds given and route, prescriptions, significant lab abnormalities, going to OR and other pertinent info. @ - 87 female with black stools which she recently just changed to a stool softener and abdominal medication which are known to cause stools blackening. Patient has normal hemoglobin and can be discharged home Discharge Undiagnosed new problem with uncertain prognosis? @ -no Drug Therapy requiring intensive monitoring for toxicity (Heparin, Nitro, Insulin, Cardizem)? @ -no Were any procedures done? @ -no Diagnosis/symptom? @ -Known diarrhea Acute, or Chronic, or Acute on Chronic? @ -Acute Uncomplicated (without systemic symptoms) or Complicated (systemic symptoms)? @ -Complicated Side effects of treatment? @ -no Exacerbation, Progression, or Severe Exacerbation? @ -exacerbation Poses a threat to life or bodily function? How? (Chest pain, USA, OR, pneumonia, PE, COPD, DKA, ARF, appy, cholecystitis, CVA, Diverticulitis, Homicidal, Suicidal, threat to staff... and all critical care pts) @ -yes if possible significant GI bleed in extreme of age Medical Decision Making - Medical Decision Making 87 female with black stools which she recently just changed to a stool softener and abdominal medication which are known to cause stools blackening. Patient has normal hemoglobin and can be discharged home - Lab Data Result diagrams: 08/29/23 19:26 08/29/23 19: Lab Results 08/29/23 08/29/23 08/29/23 Range/Units 19:26 19: 19: WBC 8.3 (3.8-10.6) k/uL RBC 3.64 L (3.80-5.40) m/uL Hgb 13.3 (11.4-16.0) gm/dL Hct 36.9 (34.0-46.0) % MCV 101.5 H (80.0-100.0) fL MCH 36.5 H (25.0-35.0) pg MCHC 35.9 (31.0-37.0) g/dL RDW 12.3 (11.5-15.5) % Plt Count 148 L (150-450) k/uL MPV 7.2 Neutrophils % 88 % Lymphocytes % 10 % Monocytes % 1 % Eosinophils % 0 % Basophils % 0 % Neutrophils # 7.3 (1.3-7.7) k/uL Lymphocytes # 0.8 L (1.0-4.8) k/uL Monocytes # 0.1 (0-1.0) k/uL Eosinophils # 0.0 (0-0.7) k/uL Basophils # 0.0 (0-0.2) k/uL PT 10.3 (10.0-12.5) sec INR 0.9 (<1.2) APTT 23.4 (22.0-30.0) sec Sodium 137 (137-145) mmol/L Potassium 4.4 (3.5-5.1) mmol/L Chloride 102 (98-107) mmol/L Carbon Dioxide 25 (22-30) mmol/L Anion Gap 10 mmol/L BUN 22 H (7-17) mg/dL Creatinine 0.85 (0.52-1.04) mg/dL Est GFR (CKD-EPI)AfAm 71 (>60 ml/min/1.73 sqM) Est GFR (CKD-EPI)NonAf 61 (>60 ml/min/1.73 sqM) Glucose 190 H (74-99) mg/dL Calcium 9.5 (8.4-10.2) mg/dL Magnesium 1.7 (1.6-2.3) mg/dL Total Bilirubin 0.5 (0.2-1.3) mg/dL AST 42 H (14-36) U/L ALT 33 (4-34) U/L Alkaline Phosphatase 121 (38-126) U/L Troponin I (0.000-0.034) ng/mL Total Protein 7.8 (6.3-8.2) g/dL Albumin 4.8 (3.5-5.0) g/dL Blood Type Blood Type Recheck Bld Type Recheck Status Antibody Screen Spec Expiration Date 08/29/23 08/29/23 Range/Units 19:26 19:27 WBC (3.8-10.6) k/uL RBC (3.80-5.40) m/uL Hgb (11.4-16.0) gm/dL Hct (34.0-46.0) % MCV (80.0-100.0) fL MCH (25.0-35.0) pg MCHC (31.0-37.0) g/dL RDW (11.5-15.5) % Plt Count (150-450) k/uL MPV Neutrophils % % Lymphocytes % % Monocytes % % Eosinophils % % Basophils % % Neutrophils # (1.3-7.7) k/uL Lymphocytes # (1.0-4.8) k/uL Monocytes # (0-1.0) k/uL Eosinophils # (0-0.7) k/uL Basophils # (0-0.2) k/uL PT (10.0-12.5) sec INR (<1.2) APTT (22.0-30.0) sec Sodium (137-145) mmol/L Potassium (3.5-5.1) mmol/L Chloride (98-107) mmol/L Carbon Dioxide (22-30) mmol/L Anion Gap mmol/L BUN (7-17) mg/dL Creatinine (0.52-1.04) mg/dL Est GFR (CKD-EPI)AfAm (>60 ml/min/1.73 sqM) Est GFR (CKD-EPI)NonAf (>60 ml/min/1.73 sqM) Glucose (74-99) mg/dL Calcium (8.4-10.2) mg/dL Magnesium (1.6-2.3) mg/dL Total Bilirubin (0.2-1.3) mg/dL AST (14-36) U/L ALT (4-34) U/L Alkaline Phosphatase (38-126) U/L Troponin I <0.012 (0.000-0.034) ng/mL Total Protein (6.3-8.2) g/dL Albumin (3.5-5.0) g/dL Blood Type O Negative Blood Type Recheck O Neg Bld Type Recheck Status No Antibody Screen NEGATIVE Spec Expiration Date 09/01/20232326 Disposition Clinical Impression: Diarrhea Disposition: HOME SELF-CARE Condition: Good Instructions (If sedation given, give patient instructions): Chronic Diarrhea (ED) Is patient prescribed a controlled substance at d/c from ED?: No Referrals: Nuno Maynard MD [Primary Care Provider] - 1-2 days Time of Disposition: 20:00
[2023-08-29 19:39] LABS: Basophils % (A) 0 %; Eosinophils % (A) 0 %; HCT 36.9 % (34.0-46.0); HGB 13.3 gm/dL (11.4-16.0); Lymphocytes # (A) 0.8 k/uL (1.0-4.8); Lymphocytes % (A) 10 %; MCH 36.5 pg (25.0-35.0); MCHC 35.9 g/dL (31.0-37.0); MCV 101.5 fL (80.0-100.0); Mean Platelet Volume 7.2; Monocytes # (A) 0.1 k/uL (0-1.0); Monocytes % (A) 1 %; Neutrophils # (A) 7.3 k/uL (1.3-7.7); Neutrophils % (A) 88 %; Platelet Count 148 k/uL (150-450); RBC 3.64 m/uL (3.80-5.40); RDW 12.3 % (11.5-15.5); WBC 8.3 k/uL (3.8-10.6)
[2023-08-29] MEDS: SODIUM CHLORIDE 0.9% 1,000 ML IV STA (19:40)
[2023-08-29] MEDS: ONDANSETRON 4 MG/2 ML VIAL IVP STA (19:40)
[2023-08-29] MEDS: PANTOPRAZOLE 40 MG/10 ML VIAL IVP STA (19:40)
[2023-08-29 19:47] LABS: ALT 33 U/L (4-34); AST 42 U/L (14-36); African American GFR (CKD) 71 (>60 ml/min/1.73 sqM); Albumin 4.8 g/dL (3.5-5.0); Alkaline Phosphatase 121 U/L (38-126); Anion Gap 10 mmol/L; Blood Urea Nitrogen 22 mg/dL (7-17); Calcium 9.5 mg/dL (8.4-10.2); Carbon Dioxide 25 mmol/L (22-30); Chloride 102 mmol/L (98-107); Glucose 190 mg/dL (74-99); Magnesium 1.7 mg/dL (1.6-2.3); Non-African American GFR(CKD) 61 (>60 ml/min/1.73 sqM); Potassium 4.4 mmol/L (3.5-5.1); Sodium 137 mmol/L (137-145); Total Bilirubin 0.5 mg/dL (0.2-1.3); Total Protein 7.8 g/dL (6.3-8.2)
[2023-08-29 19:48] LABS: INR 0.9 (<1.2); Partial Thromboplastin Time 23.4 sec (22.0-30.0); Prothrombin Time 10.3 sec (10.0-12.5)
[2023-08-29 20:23] VITALS: BP 168/67; PULSE 65; RESP 12; TEMP 98.7
== END 2023-08-29 20:29 | disposition home or self-care (01) ==
LOC: EC 18:14
DX: R19.7 Diarrhea, unspecified (principal); E78.5 Hyperlipidemia, unspecified; I10 Essential (primary) hypertension; K21.9 Gastro-esophageal reflux disease without esophagitis; Z79.899 Other long term (current) drug therapy
CPT/HCPCS: 36415; 86900; 86901; 80053; 83735; 84484; 85025; 85610; 85730; 86850; 99284; 96374; 96375; 96361; J2405; C9113; 96376

== ENCOUNTER → 2023-09-11 | Outpatient (CLI) | payer MEDICARE, BC ==
[2023-09-11 14:31] LABS: Basophils # (A) 0.1 k/uL (0-0.2); Basophils % (A) 1 %; Eosinophils # (A) 0.4 k/uL (0-0.7); Eosinophils % (A) 4 %; HCT 37.5 % (34.0-46.0); Lymphocytes # (A) 2.5 k/uL (1.0-4.8); Lymphocytes % (A) 30 %; MCH 36.1 pg (25.0-35.0); MCHC 34.7 g/dL (31.0-37.0); MCV 104.2 fL (80.0-100.0); Macrocytosis Slight; Mean Platelet Volume 7.6; Monocytes # (A) 0.5 k/uL (0-1.0); Monocytes % (A) 6 %; Neutrophils # (A) 4.6 k/uL (1.3-7.7); Neutrophils % (A) 56 %; Platelet Count 157 k/uL (150-450); RDW 12.2 % (11.5-15.5); WBC 8.2 k/uL (3.8-10.6)
[2023-09-11 14:43] LABS: African American GFR (CKD) 70 (>60 ml/min/1.73 sqM); Anion Gap 7 mmol/L; Blood Urea Nitrogen 21 mg/dL (7-17); Calcium 9.5 mg/dL (8.4-10.2); Carbon Dioxide 29 mmol/L (22-30); Chloride 100 mmol/L (98-107); Glucose 126 mg/dL (74-99); Non-African American GFR(CKD) 61 (>60 ml/min/1.73 sqM); Potassium 4.5 mmol/L (3.5-5.1); Sodium 136 mmol/L (137-145)
== END | disposition home or self-care (01) ==
LOC: LABWHC1 13:13
PROVIDERS: ATTEND Nurse Practitioner Acute Care
DX: I35.0 Nonrheumatic aortic (valve) stenosis (principal); Z95.2 Presence of prosthetic heart valve
CPT/HCPCS: 36415; 80048; 85025